=== PATIENT | female | born 1940 | race Two or more races ===

== ENCOUNTER 2020-05-22 19:55 | Inpatient (IN) | payer MEDICARE, MEDICAID ==
[~2020-05-22] VITALS: Ht 172.7 cm; Wt 57.9 kg
[2020-05-22 20:05] VITALS: BP 192/59
--- NOTE | 2020-05-22 20:05 | NUR ---
ED Nurse Note: Patient was brought in by randolph from home d/t AMS for two days, per triage she also had headache and ear pain. Patient aao x 2 but is drifting in and out of being alert, patient is able to provide name and medical history. Patient states she has been unable to urinate for 2 days. ERPA at bedside. No c/o pain. Patient changed into gown and placed on personnel monitor. Patient noted to be shaky and generalized weakness. IV on Left FA 20g established, blood and urine collected and sent to lab. No acute distress noted during assessment.
--- NOTE | 2020-05-22 20:21 | NUR ---
ED Nurse Note: Patient taken to CT in stable condition
[2020-05-22 20:22] LABS: APPEARANCE,URINE CLEAR; BILIRUBIN, URINE NEGATIVE (NEGATIVE); COLOR,URINE PALE YELLOW; GLUCOSE, URINE (UA) NEGATIVE (NEGATIVE); KETONES,URINE NEGATIVE (NEGATIVE); LEUKOCYTE ESTERASE ,URINE 1+ (NEGATIVE); NITRITE,URINE NEGATIVE (NEGATIVE); PH,URINE 7 (4.5-8.0); PROTEIN,URINE NEGATIVE (NEGATIVE); UROBILINOGEN,URINE NORMAL MG/DL (0.0-1.0)
[2020-05-22 20:30] LABS: BASOPHILS % (AUTO) 0.6 % (0.0-2.0); EOSINOPHILS % (AUTO) 2.3 % (0.0-3.0); HEMATOCRIT 41.4 % (37.0-47.0); HEMOGLOBIN 13.7 G/DL (12.0-16.0); LYMPHOCYTES % (AUTO) 20.4 % (20.0-45.0); MEAN CORPUSCULAR VOLUME 87 FL (80-99); NEUTROPHILS % (AUTO) 69.7 % (45.0-75.0); PLATELET COUNT 279 K/UL (150-450); RED BLOOD COUNT 4.75 M/UL (4.20-5.40); RED CELL DISTRIBUTION WIDTH 13.7 % (11.6-14.8); WHITE BLOOD COUNT 9.2 K/UL (4.8-10.8)
[2020-05-22 20:35] LABS: ANION GAP 11 mmol/L (5-15); BLOOD UREA NITROGEN 9 mg/dL (7-18); CALCIUM 8.9 MG/DL (8.5-10.1); CARBON DIOXIDE 23 MMOL/L (21-32); CHLORIDE 99 MMOL/L (98-107); CREATININE 0.8 MG/DL (0.55-1.30); POTASSIUM 3.7 MMOL/L (3.5-5.1); SODIUM 133 MMOL/L (136-145)
--- NOTE | 2020-05-22 20:35 | Diagnostic Imaging Report ---
EXAM: CT Head Without Intravenous Contrast CLINICAL HISTORY: AMS TECHNIQUE: Axial computed tomography images of the head/brain without intravenous contrast. CTDI is 53.4 mGy and DLP is 938.7 mGy-cm. One or more of the following dose reduction techniques were used: automated exposure control, adjustment of the mA and/or kV according to patient size, use of iterative reconstruction technique. COMPARISON: No previous studies. FINDINGS: Brain: Minimal small vessel disease of aging. No abnormal extra-axial collection. No hemorrhage. Ventricles: There is prominence of the ventricular system, cortical sulci, basilar cisterns, compatible with age related atrophy. Bones/joints: The calvarium is unremarkable. No acute fracture. Soft tissues: Unremarkable. Vasculature: There is atherosclerotic disease. Sinuses: Visualized sinuses are unremarkable. Mastoid air cells: Mastoid air cells are well pneumatized. Other findings: Only axial and coronal images are provided. IMPRESSION: 1. 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 2. No acute intracranial pathology. 3. If there is concern for etiology such as early acute lacunar infarcts, magnetic resonance imaging of the brain with diffusion-weighted sequences should be performed.
[2020-05-22 20:39] LABS: ALANINE AMINOTRANSFERASE 28 U/L (12-78); ALBUMIN 3.7 G/DL (3.4-5.0); ALBUMIN/GLOBULIN RATIO 1.1 (1.0-2.7); ALKALINE PHOSPHATASE 59 U/L (46-116); ASPARTATE AMINO TRANSFERASE 24 U/L (15-37); BILIRUBIN,TOTAL 0.4 MG/DL (0.2-1.0); CREATINE KINASE 80 U/L (26-308)
[2020-05-22 20:50] VITALS: BP 149/46
[2020-05-22] MEDS ORDERED: LOSARTAN POTASS50 MG ORAL (20:50)
[2020-05-22] MEDS ORDERED: REMERON15 MG ORAL (20:50)
[2020-05-22] MEDS ORDERED: ALPRAZOLAM0.25 M2 ORAL (20:50)
[2020-05-22] MEDS ORDERED: cefTRIAXone 1 GM in NS 55 ML IVPB ONE (21:00)
--- NOTE | 2020-05-22 21:54 | NUR ---
ED Nurse Note: Patient has both upper and lower dentures on, entered on belongings list.
--- NOTE | 2020-05-22 21:54 | NUR ---
ED Nurse Note: Belongings list completed.
[2020-05-22] MEDS ORDERED: Cortisporin OTIC Susp 10ml RIGHT EAR ONE (22:00)
--- NOTE | 2020-05-22 22:25 | Emergency Room Report ---
History of Present Illness General Chief Complaint: Altered Level of Consciousness Source: Family Member Present Illness HPI 80-year-old female here with generalized confusion. Patient's niece at the bedside says that the patient came to her house earlier this morning and "was saying things I did not make any sense." Patient was also incontinent of urine at that time. Patient was complaining of some dysuria. Here in the emergency department the patient is only complaining of some mild dysuria as well as right-sided ear pain. Denies fevers, chills, chest pain, palpitation, shortness of breath, back pain, abdominal pain, nausea, vomiting, diarrhea, hematuria. 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 Patient History Last Menstrual Period: unk Now: No Nursing Documentation-[facility] Past Medical History: No History, Except For Hx Hypertension: Yes Review of Systems All Other Systems: negative except mentioned in HPI Physical Exam Vital Signs Date Time Temp Pulse Resp B/P (MAP) Pulse Ox O2 Delivery O2 Flow Rate FiO2 05/22/20 19:55 96.8 69 23 175/60 (98) 100 Room Air Sp02 EP Interpretation: reviewed, normal General Appearance: no apparent distress, alert, non-toxic Head: normocephalic, atraumatic Eyes: bilateral eye normal inspection, bilateral eye PERRL ENT: hearing grossly normal, normal pharynx, no angioedema, normal voice, other - Mildly erythematous right external ear canal with some granulomatous change Neck: full range of motion, supple/symm/no masses Respiratory: chest non-tender, lungs clear, normal breath sounds, speaking full sentences Cardiovascular #1: regular rate, rhythm, no edema Cardiovascular #2: 2+ carotid (R), 2+ carotid (L), 2+ radial (R), 2+ radial (L), 2+ dorsalis pedis (R), 2+ dorsalis pedis (L) Gastrointestinal: normal bowel sounds, non tender, soft, non-distended, no guarding, no rebound Rectal: deferred Genitourinary: normal inspection, no CVA tenderness Musculoskeletal: back normal, normal range of motion, calf tenderness, gait/station normal, non-tender Neurologic: alert, motor strength/tone normal, oriented x3, sensory intact, responsive, speech normal Psychiatric: judgement/insight normal, memory normal, mood/affect normal, no suicidal/homicidal ideation Reflexes: 3+ bicep (R), 3+ bicep (L), 3+ tricep (R), 3+ tricep (L), 3+ knee (R), 3+ knee (L) Lymphatic: no adenopathy Medical Decision Making Diagnostic Impression: Primary Impression: Altered level of consciousness Additional Impressions: UTI (urinary tract infection) Otitis externa ER Course Laboratory Tests Test 05/22/20 20:05 05/22/20 20:20 White Blood Count 9.2 K/UL (4.8-10.8) Red Blood Count 4.75 M/UL (4.20-5.40) Hemoglobin 13.7 G/DL (12.0-16.0) Hematocrit 41.4 % (37.0-47.0) Mean Corpuscular Volume 87 FL (80-99) Mean Corpuscular Hemoglobin 28.8 PG (27.0-31.0) Mean Corpuscular Hemoglobin Concent 33.1 G/DL (32.0-36.0) Red Cell Distribution Width 13.7 % (11.6-14.8) Platelet Count 279 K/UL (150-450) Mean Platelet Volume 7.2 FL (6.5-10.1) Neutrophils (%) (Auto) 69.7 % (45.0-75.0) Lymphocytes (%) (Auto) 20.4 % (20.0-45.0) Monocytes (%) (Auto) 7.0 % (1.0-10.0) Eosinophils (%) (Auto) 2.3 % (0.0-3.0) Basophils (%) (Auto) 0.6 % (0.0-2.0) Urine Color Pale yellow Urine Appearance Clear Urine pH 7 (4.5-8.0) Urine Specific [place] 1.005 (1.005-1.035) Urine Protein Negative (NEGATIVE) Urine Glucose (UA) Negative (NEGATIVE) Urine Ketones Negative (NEGATIVE) Urine Blood 1+ (NEGATIVE) H Urine Nitrite Negative (NEGATIVE) Urine Bilirubin Negative (NEGATIVE) Urine Urobilinogen Normal MG/DL (0.0-1.0) Urine Leukocyte Esterase 1+ (NEGATIVE) H Urine RBC 0-2 /HPF (0 - 2) Urine WBC 2-4 /HPF (0 - 2) Urine Squamous Epithelial Cells Few /LPF (NONE/OCC) Urine Bacteria Few /HPF (NONE) Sodium Level 133 MMOL/L (136-145) L Potassium Level 3.7 MMOL/L (3.5-5.1) Chloride Level 99 MMOL/L (98-107) Carbon Dioxide Level 23 MMOL/L (21-32) Anion Gap 11 mmol/L (5-15) Blood Urea Nitrogen 9 mg/dL (7-18) Creatinine 0.8 MG/DL (0.55-1.30) Estimated Glomerular Filtration Rate > 60 mL/min (>60) Glucose Level 108 MG/DL (74-106) H Calcium Level 8.9 MG/DL (8.5-10.1) Total Bilirubin 0.4 MG/DL (0.2-1.0) Aspartate Amino Transferase (AST) 24 U/L (15-37) Alanine Aminotransferase (ALT) 28 U/L (12-78) Alkaline Phosphatase 59 U/L (46-116) Total Creatine Kinase 80 U/L (26-308) Troponin I 0.002 ng/mL (0.000-0.056) Total Protein 7.1 G/DL (6.4-8.2) Albumin 3.7 G/DL (3.4-5.0) Globulin 3.4 g/dL Albumin/Globulin Ratio 1.1 (1.0-2.7) Salicylates Level 1.6 ug/mL (2.8-20) L Urine Opiates Screen Negative (NEGATIVE) Acetaminophen Level < 2 MCG/ML (10-30) L Urine Barbiturates Screen Negative (NEGATIVE) Phencyclidine (PCP) Screen Negative (NEGATIVE) Urine Amphetamines Screen Negative (NEGATIVE) Urine Benzodiazepines Screen Negative (NEGATIVE) Urine Cocaine Screen Negative (NEGATIVE) Urine Marijuana (THC) Screen Negative (NEGATIVE) Serum Alcohol < 3 mg/dL Lactic Acid Level 1.30 mmol/L (0.4-2.0) EKG: NSR, no ischemia, intervals WNL. No ectopy Rhythm strip: patient monitored for arrhythmias - no malignant dysrhythmias, runs of PVCs, nor pauses noted Chest x-ray: No infiltrate/effusion. Mediastinum within normal limits 80-year-old female here with confusion and dysuria. The patient was hemodynamically stable in the emergency department and did not show any clear evidence of altered mental status. She was awake and alert but her niece at the bedside said the patient arrived unexpectedly at the nieces home tonight and was saying things that did not be any since. CT head was unremarkable. CBC and CMP unremarkable. Urinalysis showed bacteria and leukocyte esterase. Patient was given ceftriaxone in the emergency department. Examination of the patient's right external ear canal showed evidence of otitis externa. She was given Cortisporin eardrops. Admitted to telemetry in stable condition. Last Vital Signs Date Time Temp Pulse Resp B/P (MAP) Pulse Ox O2 Delivery O2 Flow Rate FiO2 05/22/20 20:50 64 20 149/46 100 Room Air 05/22/20 20:05 97.5 Referrals: [facility] (PCP) Rudy Martin M.D. May 22, 2020 22:25
--- NOTE | 2020-05-22 23:57 | NUR ---
ED Nurse Note: Report given to JENNIFER Oreilly.
--- NOTE | 2020-05-23 00:10 | NUR ---
TRANSFER TO FLOOR: Patient transferred to telemetry as ordered, per ERMD. Report given to JENNIFER Oreilly. Patient transported via gurney on ACLS protocol with panel monitor in stable condition accompanied by RN and certified emergency vehicle technician.
--- NOTE | 2020-05-23 00:10 | NUR ---
NURSE NOTES: Patient received from Shruthi RODRIGUEZ. Patient in stable condition brought in by [facility]. Moroccan speaking. Patient was able to transfer from [facility] to bed. [address] Reporter and gown placed. Called Dr. Basilio for Admission orders, Verified and carried out. Saturating well on RA. IV Site on Left AC 20G patent and intact. Call light wihtihn reach. Bed in lowest position and locked. WIll continue to monitor.
[2020-05-23] MEDS ORDERED: D5 1/2NS 1,000 ML IV SCH (01:45)
[2020-05-23 04:00] VITALS: BP 129/53
--- NOTE | 2020-05-23 07:30 | NUR ---
NURSE HAND-OFF REPORT: Important Events on Shift:[Admission] Patient Status: [Stable ] Diet: [Cardiac] Pending Orders: [] Pending Results/Labs:[] Pending MD notification:[] Latest Vital Signs: Temperature 97.7 , Pulse 66 , B/P 129 /53 , Respiratory Rate 18 , O2 SAT 98 , Room Air, O2 Flow Rate . Vital Sign Comment: [] EKG Rhythm: Sinus Rhythm Rhythm change?: N MD Notified?: - MD Response: Latest Mahoney Fall Score: 45 Fall Risk: High Risk Safety Measures: Call light Within Reach, Bed Alarm Zone 1, Side Rails Side Rails x3, Bed position Low and Locked. Fall Precautions: Yellow Socks Yellow Gown Door Sign Patient Fall Education Report given to [Gato RN].
[2020-05-23 07:36] LABS: ANION GAP 8 mmol/L (5-15); BLOOD UREA NITROGEN 7 mg/dL (7-18); CALCIUM 8.4 MG/DL (8.5-10.1); CARBON DIOXIDE 26 MMOL/L (21-32); CHLORIDE 105 MMOL/L (98-107); CREATININE 0.7 MG/DL (0.55-1.30); PHOSPHORUS 3.2 MG/DL (2.5-4.9); POTASSIUM 4.2 MMOL/L (3.5-5.1); SODIUM 139 MMOL/L (136-145)
[2020-05-23 07:38] LABS: BASOPHILS % (AUTO) 0.9 % (0.0-2.0); EOSINOPHILS % (AUTO) 2.3 % (0.0-3.0); HEMATOCRIT 37.2 % (37.0-47.0); HEMOGLOBIN 12.9 G/DL (12.0-16.0); LYMPHOCYTES % (AUTO) 22.7 % (20.0-45.0); MEAN CORPUSCULAR VOLUME 83 FL (80-99); MONOCYTES % (AUTO) 7.6 % (1.0-10.0); NEUTROPHILS % (AUTO) 66.6 % (45.0-75.0); PLATELET COUNT 254 K/UL (150-450); RED BLOOD COUNT 4.47 M/UL (4.20-5.40); RED CELL DISTRIBUTION WIDTH 13.3 % (11.6-14.8); WHITE BLOOD COUNT 6.4 K/UL (4.8-10.8)
[2020-05-23 08:00] VITALS: BP 153/50
--- NOTE | 2020-05-23 08:00 | NUR ---
NURSE NOTES: Pt awake/alert in bed, breathing easily on room air, denies SOB and denies pain at this time. Vital signs stable with SR @ 84 on monitor. IV access LAC, flushed with 10 ml NS and locked. Teixeira cath in place, patent, draining clear yellow urine into collection bag. Bed left in low position, side rails up x 2 and call light left near pt's hand.
[2020-05-23] MEDS: D5 1/2NS w/KCl 20mEq 1,000 ML IV SCH ×2 (09:17→22:27)
[2020-05-23] MEDS: Losartan 50mg tab ORAL SCH (09:27)
[2020-05-23] MEDS: Heparin 5000 units/ml inj SUBQ SCH ×2 (09:28→21:02)
--- NOTE | 2020-05-23 11:08 | Consultation ---
History of Present Illness General Date patient seen: May 23, 2020 Chief Complaint: Altered Level of Consciousness Present Illness HPI 80-year-old female with hx of HTN presented to ER with CC of generalized confusion, some dysuria. right-sided ear pain. Denies fevers, chills, chest pain, palpitation, shortness of breath, back pain, abdominal pain, nausea, vomiting, diarrhea, hematuria. Pt is admitted for further management. Allergies: Coded Allergies: No Known Allergies (Unverified , 05/22/20) Medication History Scheduled Alprazolam (Alprazolam), 0.25 MG ORAL TID, (Reported) Losartan Potassium* (Losartan Potassium*), 50 MG ORAL DAILY, (Reported) Mirtazapine* (Remeron*), 15 MG ORAL BEDTIME, (Reported) Patient History Healthcare decision maker Resuscitation status Advanced Directive on File Past Medical/Surgical History Past Medical/Surgical History: (1) History of hypertension Review of Systems All Other Systems: negative except mentioned in HPI Physical Exam General Appearance: thin Lines, tubes and drains: peripheral HEENT: normocephalic, atraumatic Neck: non-tender, supple Respiratory/Chest: chest wall non-tender, lungs clear Cardiovascular/Chest: normal peripheral pulses, normal rate Abdomen: normal bowel sounds Genitourinary/Rectal: normal genital exam Extremities: normal range of motion Skin Exam: normal pigmentation Last 24 Hour Vital Signs Date Time Temp Pulse Resp B/P (MAP) Pulse Ox O2 Delivery O2 Flow Rate FiO2 05/23/20 09:27 153/50 05/23/20 08:27 Room Air 05/23/20 08:00 63 05/23/20 08:00 97.9 70 18 153/50 (84) 100 05/23/20 04:00 66 05/23/20 04:00 97.7 66 18 129/53 (78) 98 05/23/20 03:12 Room Air 05/23/20 00:10 97.6 78 18 114/44 100 Room Air 05/22/20 20:50 64 20 149/46 100 Room Air 05/22/20 20:05 76 26 Room Air 05/22/20 20:05 97.5 76 26 192/59 100 Room Air 05/22/20 19:55 96.8 69 23 175/60 (98) 100 Room Air Intake and Output 05/22/20 05/23/20 19:00 07:00 Intake Total 1055 ml Output Total 2200 ml Balance -1145 ml Intake Oral 0 ml IV Total 1055 ml Output Urine Total 2200 ml Laboratory Tests Test 05/22/20 20:05 05/22/20 20:20 05/23/20 05:48 White Blood Count 9.2 K/UL (4.8-10.8) 6.4 K/UL (4.8-10.8) Red Blood Count 4.75 M/UL (4.20-5.40) 4.47 M/UL (4.20-5.40) Hemoglobin 13.7 G/DL (12.0-16.0) 12.9 G/DL (12.0-16.0) Hematocrit 41.4 % (37.0-47.0) 37.2 % (37.0-47.0) Mean Corpuscular Volume 87 FL (80-99) 83 FL (80-99) Mean Corpuscular Hemoglobin 28.8 PG (27.0-31.0) 28.8 PG (27.0-31.0) Mean Corpuscular Hemoglobin Concent 33.1 G/DL (32.0-36.0) 34.6 G/DL (32.0-36.0) Red Cell Distribution Width 13.7 % (11.6-14.8) 13.3 % (11.6-14.8) Platelet Count 279 K/UL (150-450) 254 K/UL (150-450) Mean Platelet Volume 7.2 FL (6.5-10.1) 6.5 FL (6.5-10.1) Neutrophils (%) (Auto) 69.7 % (45.0-75.0) 66.6 % (45.0-75.0) Lymphocytes (%) (Auto) 20.4 % (20.0-45.0) 22.7 % (20.0-45.0) Monocytes (%) (Auto) 7.0 % (1.0-10.0) 7.6 % (1.0-10.0) Eosinophils (%) (Auto) 2.3 % (0.0-3.0) 2.3 % (0.0-3.0) Basophils (%) (Auto) 0.6 % (0.0-2.0) 0.9 % (0.0-2.0) Urine Color Pale yellow Urine Appearance Clear Urine pH 7 (4.5-8.0) Urine Specific [place] 1.005 (1.005-1.035) Urine Protein Negative (NEGATIVE) Urine Glucose (UA) Negative (NEGATIVE) Urine Ketones Negative (NEGATIVE) Urine Blood 1+ (NEGATIVE) H Urine Nitrite Negative (NEGATIVE) Urine Bilirubin Negative (NEGATIVE) Urine Urobilinogen Normal MG/DL (0.0-1.0) Urine Leukocyte Esterase 1+ (NEGATIVE) H Urine RBC 0-2 /HPF (0 - 2) Urine WBC 2-4 /HPF (0 - 2) Urine Squamous Epithelial Cells Few /LPF (NONE/OCC) Urine Bacteria Few /HPF (NONE) Sodium Level 133 MMOL/L (136-145) L 139 MMOL/L (136-145) Potassium Level 3.7 MMOL/L (3.5-5.1) 4.2 MMOL/L (3.5-5.1) Chloride Level 99 MMOL/L (98-107) 105 MMOL/L (98-107) Carbon Dioxide Level 23 MMOL/L (21-32) 26 MMOL/L (21-32) Anion Gap 11 mmol/L (5-15) 8 mmol/L (5-15) Blood Urea Nitrogen 9 mg/dL (7-18) 7 mg/dL (7-18) Creatinine 0.8 MG/DL (0.55-1.30) 0.7 MG/DL (0.55-1.30) Estimat Glomerular Filtration Rate > 60 mL/min (>60) > 60 mL/min (>60) Glucose Level 108 MG/DL (74-106) H 90 MG/DL (74-106) Calcium Level 8.9 MG/DL (8.5-10.1) 8.4 MG/DL (8.5-10.1) L Total Bilirubin 0.4 MG/DL (0.2-1.0) Aspartate Amino Transf (AST/SGOT) 24 U/L (15-37) Alanine Aminotransferase (ALT/SGPT) 28 U/L (12-78) Alkaline Phosphatase 59 U/L (46-116) Total Creatine Kinase 80 U/L (26-308) Troponin I 0.002 ng/mL (0.000-0.056) 0.012 ng/mL (0.000-0.056) Total Protein 7.1 G/DL (6.4-8.2) Albumin 3.7 G/DL (3.4-5.0) Globulin 3.4 g/dL Albumin/Globulin Ratio 1.1 (1.0-2.7) Salicylates Level 1.6 ug/mL (2.8-20) L Urine Opiates Screen Negative (NEGATIVE) Acetaminophen Level < 2 MCG/ML (10-30) L Urine Barbiturates Screen Negative (NEGATIVE) Phencyclidine (PCP) Screen Negative (NEGATIVE) Urine Amphetamines Screen Negative (NEGATIVE) Urine Benzodiazepines Screen Negative (NEGATIVE) Urine Cocaine Screen Negative (NEGATIVE) Urine Marijuana (THC) Screen Negative (NEGATIVE) Serum Alcohol < 3 mg/dL Lactic Acid Level 1.30 mmol/L (0.4-2.0) Phosphorus Level 3.2 MG/DL (2.5-4.9) Magnesium Level 1.9 MG/DL (1.8-2.4) Height (Feet): 5 Height (Inches): 8.00 Weight (Pounds): 126 Medications Current Medications Medications (Trade) Dose Ordered Sig/James Route PRN Reason Start Time Stop Time Status Last Admin Dose Admin Acetaminophen (Tylenol) 650 mg Q6H PRN ORAL For Pain and Fever 05/23/20 01:45 06/22/20 01:44 Alprazolam (Xanax) 0.25 mg Q6H PRN ORAL For Anxiety 05/23/20 01:45 05/30/20 01:44 Ceftriaxone Sodium 1 gm/ Dextrose 55 ml @ 110 mls/hr Q24H IVPB 05/23/20 21:00 05/30/20 20:59 Clonidine HCl (Catapres Tab) 0.1 mg Q4H PRN ORAL SBP >160 05/23/20 07:45 08/21/20 07:44 Dextrose/ Electrolytes 1,000 ml @ 75 mls/hr [id number] IV 05/23/20 09:00 06/22/20 08:59 05/23/20 09:17 Heparin Sodium (Porcine) (Heparin 5000 units/ml) 5,000 units EVERY 12 HOURS SUBQ 05/23/20 09:00 07/07/20 08:59 05/23/20 09:28 Losartan Potassium (Cozaar) 50 mg DAILY ORAL 05/23/20 09:00 06/22/20 08:59 05/23/20 09:27 Mirtazapine (Remeron) 15 mg BEDTIME ORAL 05/23/20 21:00 08/21/20 20:59 Ondansetron HCl (Zofran) 4 mg Q4H PRN IVP Nausea & Vomiting 05/23/20 01:45 06/22/20 01:44 Assessment/Plan Problem List: (1) UTI (urinary tract infection) ICD Codes: N39.0 - Urinary tract infection, site not specified SNOMED: 45376383 (2) Otitis ICD Codes: H66.90 - Otitis media, unspecified, unspecified ear SNOMED: 25535315 (3) History of hypertension ICD Codes: Z86.79 - Personal history of other diseases of the circulatory system SNOMED: 896964012 Assessment/Plan: urine culture iv abx ID evaluation monitor BP continue home antihypertensive agents. dvt prophylaxis. Pamela Irving MD May 23, 2020 11:08
[2020-05-23 12:00] VITALS: BP 140/50
--- NOTE | 2020-05-23 13:18 | Consultation ---
History of Present Illness General Date patient seen: May 23, 2020 Chief Complaint: Altered Level of Consciousness Reason for Consultation: Ear infection Present Illness HPI Ms. Lara is an 80 yo femalew with PMHx of HTN who was sent toe ED by her niece for confusion. The patient today is awake and alert to name, location and situation. She says that she had ear pain for the last few days but this is now resolved. She says that she has no dysuria or hematura. I the ED she was aferbile with no leukcoytosis and a negative UA. ID was consulted for ear infection. PMHx/PSHx HTN SocHx EtOH abuse FAMHx Not contributory Allergies: Coded Allergies: No Known Allergies (Unverified , 05/22/20) Medication History Scheduled Alprazolam (Alprazolam), 0.25 MG ORAL TID, (Reported) Losartan Potassium* (Losartan Potassium*), 50 MG ORAL DAILY, (Reported) Mirtazapine* (Remeron*), 15 MG ORAL BEDTIME, (Reported) Patient History Healthcare decision maker Resuscitation status Advanced Directive on File Review of Systems ROS Narrative 12 point ROS negative Except as noted in the HPI Physical Exam Last 24 Hour Vital Signs Date Time Temp Pulse Resp B/P (MAP) Pulse Ox O2 Delivery O2 Flow Rate FiO2 05/23/20 12:00 64 05/23/20 09:27 153/50 05/23/20 08:27 Room Air 05/23/20 08:00 63 05/23/20 08:00 97.9 70 18 153/50 (84) 100 05/23/20 04:00 66 05/23/20 04:00 97.7 66 18 129/53 (78) 98 05/23/20 03:12 Room Air 05/23/20 00:10 97.6 78 18 114/44 100 Room Air 05/22/20 20:50 64 20 149/46 100 Room Air 05/22/20 20:05 76 26 Room Air 05/22/20 20:05 97.5 76 26 192/59 100 Room Air 05/22/20 19:55 96.8 69 23 175/60 (98) 100 Room Air Intake and Output0 05/22/20 05/23/20 19:00 07:00 Intake Total 1055 ml Output Total 2200 ml Balance -1145 ml Intake Oral 0 ml IV Total 1055 ml Output Urine Total 2200 ml Laboratory Tests Test 05/22/20 20:05 05/22/20 20:20 05/23/20 05:48 White Blood Count 9.2 K/UL (4.8-10.8) 6.4 K/UL (4.8-10.8) Red Blood Count 4.75 M/UL (4.20-5.40) 4.47 M/UL (4.20-5.40) Hemoglobin 13.7 G/DL (12.0-16.0) 12.9 G/DL (12.0-16.0) Hematocrit 41.4 % (37.0-47.0) 37.2 % (37.0-47.0) Mean Corpuscular Volume 87 FL (80-99) 83 FL (80-99) Mean Corpuscular Hemoglobin 28.8 PG (27.0-31.0) 28.8 PG (27.0-31.0) Mean Corpuscular Hemoglobin Concent 33.1 G/DL (32.0-36.0) 34.6 G/DL (32.0-36.0) Red Cell Distribution Width 13.7 % (11.6-14.8) 13.3 % (11.6-14.8) Platelet Count 279 K/UL (150-450) 254 K/UL (150-450) Mean Platelet Volume 7.2 FL (6.5-10.1) 6.5 FL (6.5-10.1) Neutrophils (%) (Auto) 69.7 % (45.0-75.0) 66.6 % (45.0-75.0) Lymphocytes (%) (Auto) 20.4 % (20.0-45.0) 22.7 % (20.0-45.0) Monocytes (%) (Auto) 7.0 % (1.0-10.0) 7.6 % (1.0-10.0) Eosinophils (%) (Auto) 2.3 % (0.0-3.0) 2.3 % (0.0-3.0) Basophils (%) (Auto) 0.6 % (0.0-2.0) 0.9 % (0.0-2.0) Urine Color Pale yellow Urine Appearance Clear Urine pH 7 (4.5-8.0) Urine Specific [place] 1.005 (1.005-1.035) Urine Protein Negative (NEGATIVE) Urine Glucose (UA) Negative (NEGATIVE) Urine Ketones Negative (NEGATIVE) Urine Blood 1+ (NEGATIVE) H Urine Nitrite Negative (NEGATIVE) Urine Bilirubin Negative (NEGATIVE) Urine Urobilinogen Normal MG/DL (0.0-1.0) Urine Leukocyte Esterase 1+ (NEGATIVE) H Urine RBC 0-2 /HPF (0 - 2) Urine WBC 2-4 /HPF (0 - 2) Urine Squamous Epithelial Cells Few /LPF (NONE/OCC) Urine Bacteria Few /HPF (NONE) Sodium Level 133 MMOL/L (136-145) L 139 MMOL/L (136-145) Potassium Level 3.7 MMOL/L (3.5-5.1) 4.2 MMOL/L (3.5-5.1) Chloride Level 99 MMOL/L (98-107) 105 MMOL/L (98-107) Carbon Dioxide Level 23 MMOL/L (21-32) 26 MMOL/L (21-32) Anion Gap 11 mmol/L (5-15) 8 mmol/L (5-15) Blood Urea Nitrogen 9 mg/dL (7-18) 7 mg/dL (7-18) Creatinine 0.8 MG/DL (0.55-1.30) 0.7 MG/DL (0.55-1.30) Estimat Glomerular Filtration Rate > 60 mL/min (>60) > 60 mL/min (>60) Glucose Level 108 MG/DL (74-106) H 90 MG/DL (74-106) Calcium Level 8.9 MG/DL (8.5-10.1) 8.4 MG/DL (8.5-10.1) L Total Bilirubin 0.4 MG/DL (0.2-1.0) Aspartate Amino Transf (AST/SGOT) 24 U/L (15-37) Alanine Aminotransferase (ALT/SGPT) 28 U/L (12-78) Alkaline Phosphatase 59 U/L (46-116) Total Creatine Kinase 80 U/L (26-308) Troponin I 0.002 ng/mL (0.000-0.056) 0.012 ng/mL (0.000-0.056) Total Protein 7.1 G/DL (6.4-8.2) Albumin 3.7 G/DL (3.4-5.0) Globulin 3.4 g/dL Albumin/Globulin Ratio 1.1 (1.0-2.7) Salicylates Level 1.6 ug/mL (2.8-20) L Urine Opiates Screen Negative (NEGATIVE) Acetaminophen Level < 2 MCG/ML (10-30) L Urine Barbiturates Screen Negative (NEGATIVE) Phencyclidine (PCP) Screen Negative (NEGATIVE) Urine Amphetamines Screen Negative (NEGATIVE) Urine Benzodiazepines Screen Negative (NEGATIVE) Urine Cocaine Screen Negative (NEGATIVE) Urine Marijuana (THC) Screen Negative (NEGATIVE) Serum Alcohol < 3 mg/dL Lactic Acid Level 1.30 mmol/L (0.4-2.0) Phosphorus Level 3.2 MG/DL (2.5-4.9) Magnesium Level 1.9 MG/DL (1.8-2.4) Height (Feet): 5 Height (Inches): 8.00 Weight (Pounds): 126 Medications Current Medications Medications (Trade) Dose Ordered Sig/James Route PRN Reason Start Time Stop Time Status Last Admin Dose Admin Acetaminophen (Tylenol) 650 mg Q6H PRN ORAL For Pain and Fever 05/23/20 01:45 06/22/20 01:44 Alprazolam (Xanax) 0.25 mg Q6H PRN ORAL For Anxiety 05/23/20 01:45 05/30/20 01:44 Ceftriaxone Sodium 1 gm/ Dextrose 55 ml @ 110 mls/hr Q24H IVPB 05/23/20 21:00 05/30/20 20:59 Clonidine HCl (Catapres Tab) 0.1 mg Q4H PRN ORAL SBP >160 05/23/20 07:45 08/21/20 07:44 Dextrose/ Electrolytes 1,000 ml @ 75 mls/hr [id number] IV 05/23/20 09:00 06/22/20 08:59 05/23/20 09:17 Heparin Sodium (Porcine) (Heparin 5000 units/ml) 5,000 units EVERY 12 HOURS SUBQ 05/23/20 09:00 07/07/20 08:59 05/23/20 09:28 Losartan Potassium (Cozaar) 50 mg DAILY ORAL 05/23/20 09:00 06/22/20 08:59 05/23/20 09:27 Mirtazapine (Remeron) 15 mg BEDTIME ORAL 05/23/20 21:00 08/21/20 20:59 Ondansetron HCl (Zofran) 4 mg Q4H PRN IVP Nausea & Vomiting 05/23/20 01:45 06/22/20 01:44 Objective Narrative GEN: NAD on RA HEENT: NCAT, MMM, EOMI, No scleral icterus, ears with no erythema or pain with manipulation. Neck: Supple no LAD HEART: RRR, S1, S2 PULM: CTAB, No W ABD: Soft, NT, ND, +BS EXT: No C/C/E, 2+ Pulses B/L NEURO: A/O x 3 No focal deficits Assessment/Plan Assessment/Plan: 80 yo femalew with PMHx of HTN who was sent toe ED by her niece for confusion. Right Ear infection Dysuria r/o UTI UA (-) Cx Pending AMS - Resolved HTN Plan - Continue Ceftriaxone #2 pending urine Cx - f/u urine Cultures - Monitor CBC and Temps Thank you for this consult. [facility] will continue to follow Ms. Galaviz with you during her hospitalization. Blake Davis MD May 23, 2020 13:18
--- NOTE | 2020-05-23 13:34 | NUR ---
CASE MANAGEMENT:REVIEW FROM HOME TO ER CC: ALOC AND UNABLE TO URINATE SI: AMS. UTI 96.8 69 23 192/59 100% ON RA NA-133 IS: IV ROCEPHIN 1L NS BOLUS CT HEAD CXR BLOOD CX : TO TELEMETRY PLAN: NEURO CHECKS Q4HRS
--- NOTE | 2020-05-23 13:56 | NUR ---
INSURANCE CLINICALS/ REVIEW FAXED TO [facility] P:[phone] F:[phone]
--- NOTE | 2020-05-23 15:17 | Cardiac Electrophysiology PN ---
Subjective Subjective [id number] Objective Last 24 Hour Vital Signs Date Time Temp Pulse Resp B/P (MAP) Pulse Ox O2 Delivery O2 Flow Rate FiO2 05/23/20 12:00 98.1 92 18 140/50 (80) 98 05/23/20 12:00 64 05/23/20 09:27 153/50 05/23/20 08:27 Room Air 05/23/20 08:00 63 05/23/20 08:00 97.9 70 18 153/50 (84) 100 05/23/20 04:00 66 05/23/20 04:00 97.7 66 18 129/53 (78) 98 05/23/20 03:12 Room Air 05/23/20 00:10 97.6 78 18 114/44 100 Room Air 05/22/20 20:50 64 20 149/46 100 Room Air 05/22/20 20:05 76 26 Room Air 05/22/20 20:05 97.5 76 26 192/59 100 Room Air 05/22/20 19:55 96.8 69 23 175/60 (98) 100 Room Air Intake and Output 05/22/20 05/23/20 19:00 07:00 Intake Total 1055 ml Output Total 2200 ml Balance -1145 ml Intake Oral 0 ml IV Total 1055 ml Output Urine Total 2200 ml Laboratory Tests Test 05/22/20 20:05 05/22/20 20:20 05/23/20 05:48 White Blood Count 9.2 K/UL (4.8-10.8) 6.4 K/UL (4.8-10.8) Red Blood Count 4.75 M/UL (4.20-5.40) 4.47 M/UL (4.20-5.40) Hemoglobin 13.7 G/DL (12.0-16.0) 12.9 G/DL (12.0-16.0) Hematocrit 41.4 % (37.0-47.0) 37.2 % (37.0-47.0) Mean Corpuscular Volume 87 FL (80-99) 83 FL (80-99) Mean Corpuscular Hemoglobin 28.8 PG (27.0-31.0) 28.8 PG (27.0-31.0) Mean Corpuscular Hemoglobin Concent 33.1 G/DL (32.0-36.0) 34.6 G/DL (32.0-36.0) Red Cell Distribution Width 13.7 % (11.6-14.8) 13.3 % (11.6-14.8) Platelet Count 279 K/UL (150-450) 254 K/UL (150-450) Mean Platelet Volume 7.2 FL (6.5-10.1) 6.5 FL (6.5-10.1) Neutrophils (%) (Auto) 69.7 % (45.0-75.0) 66.6 % (45.0-75.0) Lymphocytes (%) (Auto) 20.4 % (20.0-45.0) 22.7 % (20.0-45.0) Monocytes (%) (Auto) 7.0 % (1.0-10.0) 7.6 % (1.0-10.0) Eosinophils (%) (Auto) 2.3 % (0.0-3.0) 2.3 % (0.0-3.0) Basophils (%) (Auto) 0.6 % (0.0-2.0) 0.9 % (0.0-2.0) Urine Color Pale yellow Urine Appearance Clear Urine pH 7 (4.5-8.0) Urine Specific [place] 1.005 (1.005-1.035) Urine Protein Negative (NEGATIVE) Urine Glucose (UA) Negative (NEGATIVE) Urine Ketones Negative (NEGATIVE) Urine Blood 1+ (NEGATIVE) H Urine Nitrite Negative (NEGATIVE) Urine Bilirubin Negative (NEGATIVE) Urine Urobilinogen Normal MG/DL (0.0-1.0) Urine Leukocyte Esterase 1+ (NEGATIVE) H Urine RBC 0-2 /HPF (0 - 2) Urine WBC 2-4 /HPF (0 - 2) Urine Squamous Epithelial Cells Few /LPF (NONE/OCC) Urine Bacteria Few /HPF (NONE) Sodium Level 133 MMOL/L (136-145) L 139 MMOL/L (136-145) Potassium Level 3.7 MMOL/L (3.5-5.1) 4.2 MMOL/L (3.5-5.1) Chloride Level 99 MMOL/L (98-107) 105 MMOL/L (98-107) Carbon Dioxide Level 23 MMOL/L (21-32) 26 MMOL/L (21-32) Anion Gap 11 mmol/L (5-15) 8 mmol/L (5-15) Blood Urea Nitrogen 9 mg/dL (7-18) 7 mg/dL (7-18) Creatinine 0.8 MG/DL (0.55-1.30) 0.7 MG/DL (0.55-1.30) Estimat Glomerular Filtration Rate > 60 mL/min (>60) > 60 mL/min (>60) Glucose Level 108 MG/DL (74-106) H 90 MG/DL (74-106) Calcium Level 8.9 MG/DL (8.5-10.1) 8.4 MG/DL (8.5-10.1) L Total Bilirubin 0.4 MG/DL (0.2-1.0) Aspartate Amino Transf (AST/SGOT) 24 U/L (15-37) Alanine Aminotransferase (ALT/SGPT) 28 U/L (12-78) Alkaline Phosphatase 59 U/L (46-116) Total Creatine Kinase 80 U/L (26-308) Troponin I 0.002 ng/mL (0.000-0.056) 0.012 ng/mL (0.000-0.056) Total Protein 7.1 G/DL (6.4-8.2) Albumin 3.7 G/DL (3.4-5.0) Globulin 3.4 g/dL Albumin/Globulin Ratio 1.1 (1.0-2.7) Salicylates Level 1.6 ug/mL (2.8-20) L Urine Opiates Screen Negative (NEGATIVE) Acetaminophen Level < 2 MCG/ML (10-30) L Urine Barbiturates Screen Negative (NEGATIVE) Phencyclidine (PCP) Screen Negative (NEGATIVE) Urine Amphetamines Screen Negative (NEGATIVE) Urine Benzodiazepines Screen Negative (NEGATIVE) Urine Cocaine Screen Negative (NEGATIVE) Urine Marijuana (THC) Screen Negative (NEGATIVE) Serum Alcohol < 3 mg/dL Lactic Acid Level 1.30 mmol/L (0.4-2.0) Phosphorus Level 3.2 MG/DL (2.5-4.9) Magnesium Level 1.9 MG/DL (1.8-2.4) Gerardo Patel MD May 23, 2020 15:16
[2020-05-23 15:28] VITALS: BP 148/53
--- NOTE | 2020-05-23 16:20 | History & Physical ---
History and Physical History & Physicial Lorenzo Basilio MD May 23, 2020 16:20
--- NOTE | 2020-05-23 16:30 | Consultation ---
DATE OF CONSULTATION: 05/23/2020 CARDIOLOGY CONSULTATION CONSULTING PHYSICIAN: Gerardo Patel MD. REFERRING PHYSICIAN: Lorenzo Basilio MD. REASON FOR CONSULTATION: Management of hypertension. HISTORY OF PRESENT ILLNESS: Patient is an 80-year-old lady with history of hypertension, presented to the emergency room complaining of dysuria and fever. Patient was found also to be confused. Patient denies any chest pain or palpitation or shortness of breath. No nausea, vomiting, or diarrhea. Patient's EKG was completely normal and a Cardiology consultation was obtained for further evaluation and management of hypertension. REVIEW OF SYSTEMS: Negative other than what was mentioned in the history of present illness. PAST MEDICAL HISTORY: As mentioned above. FAMILY HISTORY: Noncontributory. SOCIAL HISTORY: Lives at home. Does not smoke or drink alcohol. MEDICATIONS: At home include losartan 50 mg daily, Remeron, and alprazolam. PHYSICAL EXAMINATION: VITAL SIGNS: Show blood pressure of 140/50, pulse is 92, respirations 18, and she is afebrile. HEAD AND NECK: Showed no JVD. LUNGS: Clear. CARDIOVASCULAR: Shows regular S1 and S2 with no gallop or murmur. ABDOMEN: Soft. EXTREMITIES: No pitting edema. LABORATORY AND DIAGNOSTIC DATA: Labs show white count of 6.4, hematocrit 12.9, hematocrit 37.2, and platelet count of 254. Sodium 139, potassium 4.2, BUN of . ASSESSMENT AND PLAN: 1. Altered mental status. EKG is normal. Patient already ruled out for myocardial infarction. Urine toxicology screen is negative. We will get an echocardiogram for further evaluation. 2. Hypertension. Continue losartan 50 mg daily. Patient is also on p.r.n. clonidine as well. 3. Urinary tract infection, on ceftriaxone per ID. Thank you very much for allowing me to participate in the care of this patient. Please do not hesitate to contact me for any questions regarding my evaluation. Gerardo Patel M.D. DR: RUBEN JOB#: [id number] CC:
--- NOTE | 2020-05-23 18:10 | NUR ---
NURSE NOTES: Pt transferred to rm 310-2 with chart. labels, IV solutions and belongings. Pt awake/alert breathing easily on room air. Pt hooked back up to IV fluid, D5 1/2NS + 20 K 75 ml/hr.Report to KRISTINA Beal. Belongings list signed.
[2020-05-23 18:25] VITALS: BP 130/55
--- NOTE | 2020-05-23 18:25 | Diagnostic Imaging Report ---
Indication: Chest pain Technique: One view of the chest Comparison: none Findings: Normal heart size. The aorta is tortuous and calcified. The lungs and pleural spaces are clear Impression: No acute process
--- NOTE | 2020-05-23 18:47 | NUR ---
NURSE NOTES: RECEIVED PATIENT A/AOX4, AMBULATES WITH MINIMAL ASSIST. PERSONAL BELONGINGS NOTED. SKIN IS INTACT. PIV PATENT AND INTACT. NO ACUTE RESP DISTRESS. NO C/O PAIN/DISCOMFORT NOTED. KEPT BED IN THE LOWEST POSITION. SIDERAILS ARE UPX3, CALL LIGHT IS WITHIN REACH. BRAKES AND LOCK @ ALL TIMES. WILL CONT TO MONITOR.
--- NOTE | 2020-05-23 19:00 | NUR ---
NURSE NOTES: received pt. in bed, awake, alert and oriented, with breathing even and unlabored. Denies any pain at this time. With bed in it's lowest position, with alarm on and locked. Will continue with plan of care.
--- NOTE | 2020-05-23 19:07 | NUR ---
NURSE HAND-OFF: Important Events on Shift:[PATIENT JUST TRANSFERRED FROM TELE. VSS, AMBULATES, PERSONAL BELONGINGS NOTED. IVF REGIMEN] Patient Status: [IMPROVING] Diet: [CARDIAC] Pending Orders: [LABS, 2D ECHO] Pending Results/Labs:[AM] Pending MD notification:[] Latest Vital Signs: Temperature 97.3 , Pulse 68 , B/P 130 /55 , Respiratory Rate 16 , O2 SAT 99 , Room Air, O2 Flow Rate . Vital Sign Comment: [] Latest Mahoney Fall Score: 45 Fall Risk: High Risk Safety Measures: Call light Within Reach, Bed Alarm Zone 1, Side Rails Side Rails x2, Bed position Low and Locked. Fall Precautions: Yellow Gown Door Sign Patient Fall Education Report given to [AL].
[2020-05-23 20:00] VITALS: BP 133/61
[2020-05-23] MEDS: cefTRIAXone 1 GM in D5W 55 ML IVPB SCH (21:01)
--- NOTE | 2020-05-23 22:00 | History and Physical Report ---
DATE OF ADMISSION: 05/22/2020 CHIEF COMPLAINT: Altered mental status. HISTORY OF PRESENT ILLNESS: This is an 80-year-old female with past medical history significant for hypertension, who presented to the emergency department complaining about dysuria and altered mental status. The patient was brought in accompanied with the niece, who mentioned that the patient has been confused since morning, was saying things that did not make sense. The patient is also incontinent of urine and complained about dysuria as well as complaining about right ear pain. She denies any fever, chills, chest pain, palpitation, shortness of breath, nausea, vomiting, diarrhea, or hematuria. Shortly after initial evaluation in the emergency department, the patient was admitted to the hospital with altered mental status, most likely secondary to toxic metabolic encephalopathy as a result of acute UTI as well as otitis externa. PAST MEDICAL HISTORY/PAST SURGICAL HISTORY: As above. History of hypertension. MEDICATION AT HOME: Refer to medication reconciliation. ALLERGIES: No known drug allergies. SOCIAL HISTORY: Denies any smoking, alcohol, or drugs. FAMILY HISTORY: Noncontributory. REVIEW OF SYSTEMS: Mostly as above. Positive dysuria. Denies any frequency, hematuria, or hematochezia. Denies any nausea or vomiting. Complained about right ear pain. Denies any bright red blood per rectum. Denies any discharge from the ear. PHYSICAL EXAMINATION: VITAL SIGNS: On admission, temperature 96.8, pulse of 69, respirations 23, and blood pressure 175/60. GENERAL: The patient is awake and responsive, in no acute distress. HEAD AND NECK: Pupils are reactive to light. Extraocular movements are intact. Right ear has mild erythematous external ear canal, some granulation changes. Neck was supple. No JVD. LUNGS: Good air entry. No wheezing or rales. HEART: S1, S2. Regular rhythm. No gallops. ABDOMEN: Soft, nondistended, and nontender. Positive bowel sounds. EXTREMITIES: No cyanosis, clubbing, or edema. NEUROLOGIC: Cranial nerves II through XII grossly intact. Motor is 5/5 in all extremities. Gait is intact. RECTAL AND GENITOURINARY: Refused and deferred. PSYCHIATRIC: Mood and affect is intact. LABORATORY DATA: On admission, WBC of 9.2, hemoglobin 13, hematocrit 41, and platelets is 279,000. Sodium 133, potassium 3.7, chloride 99, bicarbonate 22, BUN 9, creatinine 0.8, and glucose is 108. First and second troponin 0.002 and second troponin 0.0122. Albumin is 3.7. UA is +1 blood, +1 leukocytes, negative ketone, few bacteria. Urine drug screen is negative. Acetaminophen is negative. Salicylates is 1.6. Alcohol level is negative. The patient had a chest x-ray done, no acute process. CT of the head, age-related atrophy with small vessel disease of aging. No acute intracranial pathology. ASSESSMENT: 1. Altered mental status, most likely secondary to toxic metabolic encephalopathy as a result of dehydration and infection. 2. Hypertension. 3. Urinary tract infection. 4. Right ear otitis externa. PLAN: Admit the patient to monitor unit. We will start the patient on broad-spectrum antibiotic with Rocephin. Follow up with the laboratory as well as culture. Follow up with the ID consultation with Dr. Blake Davis, a Cardiology consultation with Dr. Patel, and Pulmonary consultation with Dr. Irving. Code status is Full Code. DVT prophylaxis with heparin subcutaneous. Lorenzo Basilio M.D. DR: NORMA JOB#: [id number] CC:
--- NOTE | 2020-05-23 22:56 | NUR ---
NURSE NOTES: All meds given. On continuous ivatb therapy, without a/r noted. Remained alert and oriented, able to make needs known. Son came to visit pt. Slept at intervals. With reid cath attached to draining bag and draining well to a james colored urine. Will continue to monitor.
[2020-05-24] VITALS: BP 127/58
[2020-05-24 04:00] VITALS: BP 125/63
--- NOTE | 2020-05-24 05:40 | NUR ---
NURSE NOTES: Pt. was able to slept good. Kept warm and comfortable. Teixeira cath draining well to james colored urine, free of sediments. Noted to have improved cognition, no periods of confusion noted. Denies any pain. Will continue with plan of care.
--- NOTE | 2020-05-24 07:12 | NUR ---
NURSE HAND-OFF: Important Events on Shift:neurochecks, urine quality Patient Status: awake, alert,oriented Diet: Cardiac Pending Orders: Pending Results/Labs:@D echo, tsh,t4 Pending MD notification: Latest Vital Signs: Temperature 97.1 , Pulse 66 , B/P 125 /63 , Respiratory Rate 18 , O2 SAT 98 , Room Air, O2 Flow Rate . Vital Sign Comment: stable Latest Mahoney Fall Score: 45 Fall Risk: High Risk Safety Measures: Call light Within Reach, Bed Alarm Zone 1, Side Rails Side Rails x2, Bed position Low and Locked. Fall Precautions: Yellow Gown Door Sign Patient Fall Education Report given to Alina SARABIA .
--- NOTE | 2020-05-24 07:34 | NUR ---
NURSE NOTES: Received pt from JENNIFER Brown, pt was resting alert x 4, F/C in place yellowish , call light w/in reach.
[2020-05-24 08:00] VITALS: BP 130/56
[2020-05-24] MEDS: Losartan 50mg tab ORAL SCH (08:35)
[2020-05-24] MEDS: Heparin 5000 units/ml inj SUBQ SCH ×2 (08:36→21:02)
--- NOTE | 2020-05-24 09:10 | Infectious Diseases Prog Note ---
Assessment/Plan 80 yo femalew with PMHx of HTN who was sent to the ED by her niece for confusion. Right Ear infection Dysuria r/o UTI UA (-) Cx Pending AMS - Resolved HTN Plan - Continue Ceftriaxone #3 On D/C could switch to PO Augmentin 875 BID ( End date 05/27/20) - Monitor CBC and Temps Thank you for this consult. [facility] will continue to follow Ms. Galaviz with you during her hospitalization. Subjective Allergies: Coded Allergies: No Known Allergies (Unverified , 05/22/20) Afebrile No Leukocytosis HESHAM Objective Last 24 Hour Vital Signs Date Time Temp Pulse Resp B/P (MAP) Pulse Ox O2 Delivery O2 Flow Rate FiO2 05/24/20 08:35 130/56 05/24/20 08:00 98.3 73 18 130/56 (80) 98 05/24/20 04:00 97.1 66 18 125/63 (83) 98 05/24/20 00:00 96.8 69 18 127/58 (81) 98 05/23/20 21:00 Room Air 05/23/20 20:00 98.0 68 16 133/61 (85) 97 05/23/20 18:29 97.3 05/23/20 18:25 97.3 68 16 130/55 (80) 99 05/23/20 16:00 66 05/23/20 15:28 100.8 70 18 148/53 (84) 99 05/23/20 12:00 98.1 92 18 140/50 (80) 98 05/23/20 12:00 64 05/23/20 09:27 153/50 Height (Feet): 5 Height (Inches): 8.00 Weight (Pounds): 126 Microbiology Date/Time Source Procedure Growth Status 05/22/20 20:20 Blood Blood Culture - Preliminary NO GROWTH AFTER 24 HOURS Resulted 05/22/20 20:05 Blood Blood Culture - Preliminary NO GROWTH AFTER 24 HOURS Resulted Laboratory Tests Test 05/24/20 05:05 Thyroid Stimulating Hormone (TSH) 1.124 uiU/mL (0.358-3.740) Free Thyroxine 1.16 NG/DL (0.76-1.46) Current Medications Medications (Trade) Dose Ordered Sig/James Route PRN Reason Start Time Stop Time Status Last Admin Dose Admin Acetaminophen (Tylenol) 650 mg Q6H PRN ORAL For Pain and Fever 05/23/20 01:45 06/22/20 01:44 05/23/20 17:59 Alprazolam (Xanax) 0.25 mg Q6H PRN ORAL For Anxiety 05/23/20 01:45 05/30/20 01:44 Ceftriaxone Sodium 1 gm/ Dextrose 55 ml @ 110 mls/hr Q24H IVPB 05/23/20 21:00 05/30/20 20:59 05/23/20 21:01 Clonidine HCl (Catapres Tab) 0.1 mg Q4H PRN ORAL SBP >160 05/23/20 07:45 08/21/20 07:44 Dextrose/ Electrolytes 1,000 ml @ 75 mls/hr [id number] IV 05/23/20 09:00 06/22/20 08:59 05/23/20 22:27 Heparin Sodium (Porcine) (Heparin 5000 units/ml) 5,000 units EVERY 12 HOURS SUBQ 05/23/20 09:00 07/07/20 08:59 05/24/20 08:36 Losartan Potassium (Cozaar) 50 mg DAILY ORAL 05/23/20 09:00 06/22/20 08:59 05/24/20 08:35 Mirtazapine (Remeron) 15 mg BEDTIME ORAL 05/23/20 21:00 08/21/20 20:59 05/23/20 21:01 Ondansetron HCl (Zofran) 4 mg Q4H PRN IVP Nausea & Vomiting 05/23/20 01:45 06/22/20 01:44 Blake Davis MD May 24, 2020 09:10
[2020-05-24 12:00] VITALS: BP 136/67
--- NOTE | 2020-05-24 12:04 | Internal Med Progress Note ---
Subjective Date of Service: May 24, 2020 Physician Name Monty Lopez Attending Physician Lorenzo Basilio MD Current Medications Medications (Trade) Dose Ordered Sig/James Route PRN Reason Start Time Stop Time Status Last Admin Dose Admin Acetaminophen (Tylenol) 650 mg Q6H PRN ORAL For Pain and Fever 05/23/20 01:45 06/22/20 01:44 05/23/20 17:59 Alprazolam (Xanax) 0.25 mg Q6H PRN ORAL For Anxiety 05/23/20 01:45 05/30/20 01:44 Ceftriaxone Sodium 1 gm/ Dextrose 55 ml @ 110 mls/hr Q24H IVPB 05/23/20 21:00 05/30/20 20:59 05/23/20 21:01 Clonidine HCl (Catapres Tab) 0.1 mg Q4H PRN ORAL SBP >160 05/23/20 07:45 08/21/20 07:44 Dextrose/ Electrolytes 1,000 ml @ 75 mls/hr [id number] IV 05/23/20 09:00 06/22/20 08:59 05/23/20 22:27 Heparin Sodium (Porcine) (Heparin 5000 units/ml) 5,000 units EVERY 12 HOURS SUBQ 05/23/20 09:00 07/07/20 08:59 05/24/20 08:36 Losartan Potassium (Cozaar) 50 mg DAILY ORAL 05/23/20 09:00 06/22/20 08:59 05/24/20 08:35 Mirtazapine (Remeron) 15 mg BEDTIME ORAL 05/23/20 21:00 08/21/20 20:59 05/23/20 21:01 Ondansetron HCl (Zofran) 4 mg Q4H PRN IVP Nausea & Vomiting 05/23/20 01:45 06/22/20 01:44 Allergies: Coded Allergies: No Known Allergies (Unverified , 05/22/20) ROS Limited/Unobtainable: Yes Subjective 80 YO F admitted with altered mental status. Now UTI. Cover for Int Ángel-DR Basilio Objective Last Vital Signs Date Time Temp Pulse Resp B/P (MAP) Pulse Ox O2 Delivery O2 Flow Rate FiO2 05/24/20 09:00 Room Air 05/24/20 08:35 130/56 05/24/20 08:00 98.3 73 18 98 Laboratory Tests Test 05/24/20 05:05 Thyroid Stimulating Hormone (TSH) 1.124 uiU/mL (0.358-3.740) Free Thyroxine 1.16 NG/DL (0.76-1.46) Microbiology Date/Time Source Procedure Growth Status 05/22/20 20:20 Blood Blood Culture - Preliminary NO GROWTH AFTER 24 HOURS Resulted 05/22/20 20:05 Blood Blood Culture - Preliminary NO GROWTH AFTER 24 HOURS Resulted Intake and Output 05/23/20 05/24/20 19:00 07:00 Intake Total 675 ml 1255 ml Output Total 3200 ml Balance 675 ml -1945 ml Intake Oral 300 ml IV Total 75 ml 955 ml Other 600 ml Output Urine Total 3200 ml Objective PHYSICAL EXAMINATION: GENERAL: The patient is awake and responsive, in no acute distress. HEAD AND NECK: Pupils are reactive to light. Extraocular movements are intact. Right ear has mild erythematous external ear canal, some granulation changes. Neck was supple. No JVD. LUNGS: Good air entry. No wheezing or rales. HEART: S1, S2. Regular rhythm. No gallops. ABDOMEN: Soft, nondistended, and nontender. Positive bowel sounds. EXTREMITIES: No cyanosis, clubbing, or edema. NEUROLOGIC: Cranial nerves II through XII grossly intact. Motor is 5/5 in all extremities. Gait is intact. RECTAL AND GENITOURINARY: Refused and deferred. PSYCHIATRIC: Mood and affect is intact. Assessment/Plan Assessment/Plan ASSESSMENT: 1. Altered mental status, most likely secondary to toxic metabolic encephalopathy as a result of dehydration and infection. 2. Hypertension. 3. Urinary tract infection. 4. Right ear otitis externa. PLAN: 1. Admit the patient to med/surg. 2. antibiotic = Rocephin. 3. ID consultation = Dr. Blake Davis 4. Cardiology consultation = Dr. Patel 5. Pulmonary consultation = Dr. Irving 6. Code status is Full Code. 7. DVT prophylaxis = heparin subcutaneous. Monty Lopez MD May 24, 2020 12:04
[2020-05-24] MEDS: D5 1/2NS w/KCl 20mEq 1,000 ML IV SCH (12:24)
--- NOTE | 2020-05-24 14:30 | NUR ---
NURSE NOTES: pt c/o headache and nausea administered Tylenol and Zofran. pt stated that she was scared current situation like Covid -19 or can't go outside that made her emotional stress that made her nauseous.
--- NOTE | 2020-05-24 15:10 | Pulmonology Progress Note ---
Subjective ROS Limited/Unobtainable: Yes Constitutional: Reports: no symptoms HEENT: Repors: no symptoms Allergies: Coded Allergies: No Known Allergies (Unverified , 05/22/20) Objective Last 24 Hour Vital Signs Date Time Temp Pulse Resp B/P (MAP) Pulse Ox O2 Delivery O2 Flow Rate FiO2 05/24/20 09:00 Room Air 05/24/20 08:35 130/56 05/24/20 08:00 98.3 73 18 130/56 (80) 98 05/24/20 04:00 97.1 66 18 125/63 (83) 98 05/24/20 00:00 96.8 69 18 127/58 (81) 98 05/23/20 21:00 Room Air 05/23/20 20:00 98.0 68 16 133/61 (85) 97 05/23/20 18:29 97.3 05/23/20 18:25 97.3 68 16 130/55 (80) 99 05/23/20 16:00 66 05/23/20 15:28 100.8 70 18 148/53 (84) 99 Intake and Output 05/23/20 05/24/20 19:00 07:00 Intake Total 675 ml 1255 ml Output Total 3200 ml Balance 675 ml -1945 ml Intake Oral 300 ml IV Total 75 ml 955 ml Other 600 ml Output Urine Total 3200 ml General Appearance: WD/WN, no acute distress HEENT: normocephalic Respiratory: chest wall non-tender, lungs clear Breasts: no masses Cardiovascular: normal peripheral pulses, normal rate Abdomen: normal bowel sounds, soft, non tender Genitourinary: normal external genitalia Extremities: no cyanosis Neurologic: manager corporate strategy II-XII grossly normal Microbiology Date/Time Source Procedure Growth Status 05/22/20 20:20 Blood Blood Culture - Preliminary NO GROWTH AFTER 24 HOURS Resulted 05/22/20 20:05 Blood Blood Culture - Preliminary NO GROWTH AFTER 24 HOURS Resulted Laboratory Tests 05/24/20 05:05: Thyroid Stimulating Hormone (TSH) 1.124, Free Thyroxine 1.16 Current Medications Medications (Trade) Dose Ordered Sig/James Route PRN Reason Start Time Stop Time Status Last Admin Dose Admin Acetaminophen (Tylenol) 650 mg Q6H PRN ORAL For Pain and Fever 05/23/20 01:45 06/22/20 01:44 05/24/20 12:14 Alprazolam (Xanax) 0.25 mg Q6H PRN ORAL For Anxiety 05/23/20 01:45 05/30/20 01:44 Ceftriaxone Sodium 1 gm/ Dextrose 55 ml @ 110 mls/hr Q24H IVPB 05/23/20 21:00 05/30/20 20:59 05/23/20 21:01 Clonidine HCl (Catapres Tab) 0.1 mg Q4H PRN ORAL SBP >160 05/23/20 07:45 08/21/20 07:44 Dextrose/ Electrolytes 1,000 ml @ 75 mls/hr [id number] IV 05/23/20 09:00 06/22/20 08:59 05/24/20 12:24 Heparin Sodium (Porcine) (Heparin 5000 units/ml) 5,000 units EVERY 12 HOURS SUBQ 05/23/20 09:00 07/07/20 08:59 05/24/20 08:36 Losartan Potassium (Cozaar) 50 mg DAILY ORAL 05/23/20 09:00 06/22/20 08:59 05/24/20 08:35 Mirtazapine (Remeron) 15 mg BEDTIME ORAL 05/23/20 21:00 08/21/20 20:59 05/23/20 21:01 Ondansetron HCl (Zofran) 4 mg Q4H PRN IVP Nausea & Vomiting 05/23/20 01:45 06/22/20 01:44 05/24/20 14:18 Assessment/Plan Problems: (1) UTI (urinary tract infection) (2) Otitis (3) History of hypertension Assessment/Plan doing better urine culture iv abx ID evaluation appreciated monitor BP continue home antihypertensive agents. dvt prophylaxis. Pamela Irving MD May 24, 2020 15:10
[2020-05-24 16:00] VITALS: BP 143/60
--- NOTE | 2020-05-24 16:51 | Cardiac Electrophysiology PN ---
Assessment/Plan Assessment/Plan 1. Altered mental status. Resolved. EKG is normal. Patient already ruled out for myocardial infarction. Urine toxicology screen is negative. Echocardiogram showed EF 65%. 2. Hypertension. Continue losartan 50 mg daily. Patient is also on p.r.n. clonidine as well. 3. Urinary tract infection, on ceftriaxone per ID. 4. Homelessness Subjective Subjective Very alert today. ECG and ECho were normal Objective Last 24 Hour Vital Signs Date Time Temp Pulse Resp B/P (MAP) Pulse Ox O2 Delivery O2 Flow Rate FiO2 05/24/20 09:00 Room Air 05/24/20 08:35 130/56 05/24/20 08:00 98.3 73 18 130/56 (80) 98 05/24/20 04:00 97.1 66 18 125/63 (83) 98 05/24/20 00:00 96.8 69 18 127/58 (81) 98 05/23/20 21:00 Room Air 05/23/20 20:00 98.0 68 16 133/61 (85) 97 05/23/20 18:29 97.3 05/23/20 18:25 97.3 68 16 130/55 (80) 99 Intake and Output 05/23/20 05/24/20 19:00 07:00 Intake Total 675 ml 1255 ml Output Total 3200 ml Balance 675 ml -1945 ml Intake Oral 300 ml IV Total 75 ml 955 ml Other 600 ml Output Urine Total 3200 ml Laboratory Tests Test 05/24/20 05:05 Thyroid Stimulating Hormone (TSH) 1.124 uiU/mL (0.358-3.740) Free Thyroxine 1.16 NG/DL (0.76-1.46) Microbiology Date/Time Source Procedure Growth Status 05/22/20 20:20 Blood Blood Culture - Preliminary NO GROWTH AFTER 24 HOURS Resulted 05/22/20 20:05 Blood Blood Culture - Preliminary NO GROWTH AFTER 24 HOURS Resulted Objective HEAD AND NECK: Showed no JVD. LUNGS: Clear. CARDIOVASCULAR: Shows regular S1 and S2 with no gallop or murmur. ABDOMEN: Soft. EXTREMITIES: No pitting edema. Gerardo Patel MD May 24, 2020 16:51
--- NOTE | 2020-05-24 19:33 | NUR ---
HAND-OFF: Report given to JENNIFER Hutchins. pt is stable condition.
--- NOTE | 2020-05-24 19:35 | NUR ---
NURSE NOTES: Received report from JENNIFER Fung. Patient alert, oriented x4, able to communicate well in Colombian with nurse. States she felt anxious earlier, but feels well now. Patient appears relaxed. IV in LFA, intact and patent, infusing IVF. Teixeira catheter in place, patent draining clear yellow urine. Per AM report, FC needed due to urinary retention. Patient denies any pain or discomfort. Encouraged to call as needed for assistance OOB. Patient verbalizes understanding. Bed in low position, locked side rails up x2, call light within reach. Will continue to monitor.
[2020-05-24 20:00] VITALS: BP 110/60
[2020-05-24] MEDS: cefTRIAXone 1 GM in D5W 55 ML IVPB SCH (21:02)
--- NOTE | 2020-05-24 22:30 | NUR ---
NURSE NOTES: Pt requested not to be awakened for vitals signs at midnight.
[2020-05-24] MEDS: ALPRAZolam 0.25mg tab ORAL PRN (22:32)
--- NOTE | 2020-05-24 23:05 | NUR ---
NURSE NOTES: Received phone call from patient's niece, Kathryn Deutsch [phone], she would like results of tests. Will pass onto AM shift to have physician call family for update. Niece verbalizes understanding of procedures to obtain results.
[2020-05-25] MEDS: D5 1/2NS w/KCl 20mEq 1,000 ML IV SCH ×2 (01:00→13:27)
--- NOTE | 2020-05-25 04:06 | NUR ---
NURSE NOTES: Patient sleeping, respirations unlabored.
[2020-05-25 05:49] LABS: EOSINOPHILS % (AUTO) 3.9 % (0.0-3.0); HEMATOCRIT 39.3 % (37.0-47.0); HEMOGLOBIN 13.3 G/DL (12.0-16.0); LYMPHOCYTES % (AUTO) 21.5 % (20.0-45.0); MEAN CORPUSCULAR VOLUME 84 FL (80-99); NEUTROPHILS % (AUTO) 65.7 % (45.0-75.0); PLATELET COUNT 265 K/UL (150-450); RED BLOOD COUNT 4.67 M/UL (4.20-5.40); RED CELL DISTRIBUTION WIDTH 13.3 % (11.6-14.8); WHITE BLOOD COUNT 6.2 K/UL (4.8-10.8)
[2020-05-25 06:11] LABS: ANION GAP 3 mmol/L (5-15); BLOOD UREA NITROGEN 8 mg/dL (7-18); CALCIUM 8.5 MG/DL (8.5-10.1); CARBON DIOXIDE 29 MMOL/L (21-32); CHLORIDE 107 MMOL/L (98-107); CREATININE 0.9 MG/DL (0.55-1.30); POTASSIUM 4.8 MMOL/L (3.5-5.1); SODIUM 139 MMOL/L (136-145)
--- NOTE | 2020-05-25 07:15 | NUR ---
NURSE HAND-OFF: Important Events on Shift: Patient Status: stable Diet: Cardiac Pending Orders: Pending Results/Labs Pending MD notification: Latest Vital Signs: Temperature 98.6 , Pulse 76 , B/P 110 /60 , Respiratory Rate 18 , O2 SAT 97 , Room Air, O2 Flow Rate . Vital Sign Comment: Latest Mahoney Fall Score: 30 Fall Risk: Medium Risk Safety Measures: Call light Within Reach, Bed Alarm Zone 1, Side Rails Side Rails x2, Bed position Low and Locked. Fall Precautions: Yellow Socks Yellow Gown Door Sign Patient Fall Education Report given to JENNIFER Mendez. Rounds done.
[2020-05-25 08:00] VITALS: BP 143/69
--- NOTE | 2020-05-25 08:00 | NUR ---
NURSE NOTES: Received report from Mariam RODRIGUEZ, pt a/a/o x4 laying in bed with no signs of distress or other issues at this time. no skin issues noted at this time. IV on the left FA gauge #20 running D51/2 NS +20mEq@75ml/hr. Teixeira cath in place draining well. Call light within reach, bed in lowest position. side rales up x2. I will f/u as needed.
[2020-05-25] MEDS: Losartan 50mg tab ORAL SCH (08:33)
[2020-05-25] MEDS: Heparin 5000 units/ml inj SUBQ SCH ×2 (08:34→21:25)
[2020-05-25 12:00] VITALS: BP 181/70
--- NOTE | 2020-05-25 13:06 | Pulmonology Progress Note ---
Subjective ROS Limited/Unobtainable: Yes Constitutional: Reports: no symptoms HEENT: Repors: no symptoms Allergies: Coded Allergies: No Known Allergies (Unverified , 05/22/20) Objective Last 24 Hour Vital Signs Date Time Temp Pulse Resp B/P (MAP) Pulse Ox O2 Delivery O2 Flow Rate FiO2 05/25/20 12:00 98.3 77 16 181/70 (107) 97 05/25/20 11:59 181/70 05/25/20 09:00 Room Air 05/25/20 08:33 143/69 05/25/20 08:00 98.4 82 16 143/69 (93) 99 05/24/20 21:00 Room Air 05/24/20 20:00 98.6 75 18 110/60 (77) 97 76 05/24/20 16:00 98.4 74 18 143/60 (87) 97 Intake and Output 05/24/20 05/25/20 19:00 07:00 Intake Total 600 ml 450 ml Output Total 1200 ml 2800 ml Balance -600 ml -2350 ml Intake Oral 450 ml Other 600 ml Output Urine Total 1200 ml 2800 ml # Bowel Movements 1 2 General Appearance: WD/WN, no acute distress HEENT: normocephalic Respiratory: chest wall non-tender, lungs clear Breasts: no masses Cardiovascular: normal peripheral pulses, normal rate Abdomen: normal bowel sounds, soft, non tender Genitourinary: normal external genitalia Extremities: no cyanosis 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 Microbiology Date/Time Source Procedure Growth Status 05/22/20 20:20 Blood Blood Culture - Preliminary NO GROWTH AFTER 24 HOURS Resulted 05/22/20 20:05 Blood Blood Culture - Preliminary NO GROWTH AFTER 24 HOURS Resulted Laboratory Tests 05/25/20 05:10: White Blood Count 6.2, Red Blood Count 4.67, Hemoglobin 13.3, Hematocrit 39.3, Mean Corpuscular Volume 84, Mean Corpuscular Hemoglobin 28.6, Mean Corpuscular Hemoglobin Concent 34.0, Red Cell Distribution Width 13.3, Platelet Count 265, Mean Platelet Volume 6.7, Neutrophils (%) (Auto) 65.7, Lymphocytes (%) (Auto) 21.5, Monocytes (%) (Auto) 8.0, Eosinophils (%) (Auto) 3.9H, Basophils (%) (Auto) 1.0, Sodium Level 139, Potassium Level 4.8, Chloride Level 107, Carbon Dioxide Level 29, Anion Gap 3L, Blood Urea Nitrogen 8, Creatinine 0.9, Estimat Glomerular Filtration Rate > 60, Glucose Level 109H, Calcium Level 8.5 Current Medications Medications (Trade) Dose Ordered Sig/James Route PRN Reason Start Time Stop Time Status Last Admin Dose Admin Acetaminophen (Tylenol) 650 mg Q6H PRN ORAL For Pain and Fever 05/23/20 01:45 06/22/20 01:44 05/24/20 12:14 Alprazolam (Xanax) 0.25 mg Q6H PRN ORAL For Anxiety 05/23/20 01:45 05/30/20 01:44 05/24/20 22:32 Ceftriaxone Sodium 1 gm/ Dextrose 55 ml @ 110 mls/hr Q24H IVPB 05/23/20 21:00 05/30/20 20:59 05/24/20 21:02 Clonidine HCl (Catapres Tab) 0.1 mg Q4H PRN ORAL SBP >160 05/23/20 07:45 08/21/20 07:44 05/25/20 11:59 Dextrose/ Electrolytes 1,000 ml @ 75 mls/hr [id number] IV 05/23/20 09:00 06/22/20 08:59 05/25/20 01:00 Heparin Sodium (Porcine) (Heparin 5000 units/ml) 5,000 units EVERY 12 HOURS SUBQ 05/23/20 09:00 07/07/20 08:59 05/25/20 08:34 Losartan Potassium (Cozaar) 50 mg DAILY ORAL 05/23/20 09:00 06/22/20 08:59 05/25/20 08:33 Mirtazapine (Remeron) 15 mg BEDTIME ORAL 05/23/20 21:00 08/21/20 20:59 05/24/20 21:02 Ondansetron HCl (Zofran) 4 mg Q4H PRN IVP Nausea & Vomiting 05/23/20 01:45 06/22/20 01:44 05/24/20 14:18 Assessment/Plan Problems: (1) UTI (urinary tract infection) (2) Otitis (3) History of hypertension Assessment/Plan afebrile doing better urine culture, still pending iv abx ID evaluation appreciated monitor BP continue home antihypertensive agents. dvt prophylaxis. Pamela Irving MD May 25, 2020 13:06
[2020-05-25 14:57] VITALS: BP 132/64
[2020-05-25 16:00] VITALS: BP 118/60
--- NOTE | 2020-05-25 16:22 | NUR ---
PT Note PT romulo completed, treatment initiated. Patient has muscle weakness with decrease postural stability, making her at risk for falls. Patient can benefit from PT services to increase her muscle strength and balance to improve her safety in mobility and gait. Addendum: 05/25/20 at 1622 by AYANNA FLORES PT Amended: Links added.
--- NOTE | 2020-05-25 17:37 | Internal Med Progress Note ---
Subjective Date of Service: May 25, 2020 Physician Name Monty Lopez Attending Physician Lorenzo Basilio MD Current Medications Medications (Trade) Dose Ordered Sig/James Route PRN Reason Start Time Stop Time Status Last Admin Dose Admin Acetaminophen (Tylenol) 650 mg Q6H PRN ORAL For Pain and Fever 05/23/20 01:45 06/22/20 01:44 05/24/20 12:14 Alprazolam (Xanax) 0.25 mg Q6H PRN ORAL For Anxiety 05/23/20 01:45 05/30/20 01:44 05/24/20 22:32 Ceftriaxone Sodium 1 gm/ Dextrose 55 ml @ 110 mls/hr Q24H IVPB 05/23/20 21:00 05/30/20 20:59 05/24/20 21:02 Clonidine HCl (Catapres Tab) 0.1 mg Q4H PRN ORAL SBP >160 05/23/20 07:45 08/21/20 07:44 05/25/20 11:59 Dextrose/ Electrolytes 1,000 ml @ 75 mls/hr [id number] IV 05/23/20 09:00 06/22/20 08:59 05/25/20 13:27 Heparin Sodium (Porcine) (Heparin 5000 units/ml) 5,000 units EVERY 12 HOURS SUBQ 05/23/20 09:00 07/07/20 08:59 05/25/20 08:34 Losartan Potassium (Cozaar) 50 mg DAILY ORAL 05/23/20 09:00 06/22/20 08:59 05/25/20 08:33 Mirtazapine (Remeron) 15 mg BEDTIME ORAL 05/23/20 21:00 08/21/20 20:59 05/24/20 21:02 Ondansetron HCl (Zofran) 4 mg Q4H PRN IVP Nausea & Vomiting 05/23/20 01:45 06/22/20 01:44 05/24/20 14:18 Allergies: Coded Allergies: No Known Allergies (Unverified , 05/22/20) ROS Limited/Unobtainable: No Constitutional: Reports: no symptoms HEENT: Reports: no symptoms Cardiovascular: Reports: no symptoms Respiratory: Reports: no symptoms Gastrointestinal/Abdominal: Reports: no symptoms Genitourinary: Reports: no symptoms Neurologic/Psychiatric: Reports: no symptoms Subjective 80 YO F admitted with altered mental status. Now UTI. Cover for Int Ángel-DR Basilio Objective Last Vital Signs Date Time Temp Pulse Resp B/P (MAP) Pulse Ox O2 Delivery O2 Flow Rate FiO2 05/25/20 16:00 98.5 78 16 118/60 (79) 99 05/25/20 09:00 Room Air Laboratory Tests Test 05/25/20 05:10 White Blood Count 6.2 K/UL (4.8-10.8) Red Blood Count 4.67 M/UL (4.20-5.40) Hemoglobin 13.3 G/DL (12.0-16.0) Hematocrit 39.3 % (37.0-47.0) Mean Corpuscular Volume 84 FL (80-99) Mean Corpuscular Hemoglobin 28.6 PG (27.0-31.0) Mean Corpuscular Hemoglobin Concent 34.0 G/DL (32.0-36.0) Red Cell Distribution Width 13.3 % (11.6-14.8) Platelet Count 265 K/UL (150-450) Mean Platelet Volume 6.7 FL (6.5-10.1) Neutrophils (%) (Auto) 65.7 % (45.0-75.0) Lymphocytes (%) (Auto) 21.5 % (20.0-45.0) Monocytes (%) (Auto) 8.0 % (1.0-10.0) Eosinophils (%) (Auto) 3.9 % (0.0-3.0) H Basophils (%) (Auto) 1.0 % (0.0-2.0) Sodium Level 139 MMOL/L (136-145) Potassium Level 4.8 MMOL/L (3.5-5.1) Chloride Level 107 MMOL/L (98-107) Carbon Dioxide Level 29 MMOL/L (21-32) Anion Gap 3 mmol/L (5-15) L Blood Urea Nitrogen 8 mg/dL (7-18) Creatinine 0.9 MG/DL (0.55-1.30) Estimat Glomerular Filtration Rate > 60 mL/min (>60) Glucose Level 109 MG/DL (74-106) H Calcium Level 8.5 MG/DL (8.5-10.1) Microbiology Date/Time Source Procedure Growth Status 05/22/20 20:20 Blood Blood Culture - Preliminary NO GROWTH AFTER 24 HOURS Resulted 05/22/20 20:05 Blood Blood Culture - Preliminary NO GROWTH AFTER 24 HOURS Resulted Intake and Output 05/24/20 05/25/20 19:00 07:00 Intake Total 600 ml 450 ml Output Total 1200 ml 2800 ml Balance -600 ml -2350 ml Intake Oral 450 ml Other 600 ml Output Urine Total 1200 ml 2800 ml # Bowel Movements 1 2 Objective PHYSICAL EXAMINATION: GENERAL: The patient is awake and responsive, in no acute distress. HEAD AND NECK: Pupils are reactive to light. Extraocular movements are intact. Right ear has mild erythematous external ear canal, some granulation changes. Neck was supple. No JVD. LUNGS: Good air entry. No wheezing or rales. HEART: S1, S2. Regular rhythm. No gallops. ABDOMEN: Soft, nondistended, and nontender. Positive bowel sounds. EXTREMITIES: No cyanosis, clubbing, or edema. NEUROLOGIC: Cranial nerves II through XII grossly intact. Motor is 5/5 in all extremities. Gait is intact. RECTAL AND GENITOURINARY: Refused and deferred. PSYCHIATRIC: Mood and affect is intact. Assessment/Plan Assessment/Plan ASSESSMENT: 1. Altered mental status, most likely secondary to toxic metabolic encephalopathy as a result of dehydration and infection. 2. Hypertension. 3. Urinary tract infection. 4. Right ear otitis externa. PLAN: 1. Admit the patient to med/surg. 2. antibiotic = Rocephin. 3. ID consultation = Dr. Blake Davis 4. Cardiology consultation = Dr. Patel 5. Pulmonary consultation = Dr. Irving 6. Code status is Full Code. 7. DVT prophylaxis = heparin subcutaneous. 8. Discharge in am 05/26/20 Monty Lopez MD May 25, 2020 17:37
--- NOTE | 2020-05-25 17:58 | Cardiac Electrophysiology PN ---
Assessment/Plan Assessment/Plan 1. Altered mental status. Resolved. EKG is normal. Patient already ruled out for myocardial infarction. Urine toxicology screen is negative. Echocardiogram showed EF 65%. 2. Hypertension. Continue losartan 50 mg daily. Patient is also on p.r.n. clonidine as well. 3. Urinary tract infection, on ceftriaxone per ID. 4. Homelessness DC planning Subjective Subjective Very alert. ECG and ECho were normal Objective Last 24 Hour Vital Signs Date Time Temp Pulse Resp B/P (MAP) Pulse Ox O2 Delivery O2 Flow Rate FiO2 05/25/20 16:00 98.5 78 16 118/60 (79) 99 05/25/20 14:57 77 132/64 (86) 05/25/20 12:00 98.3 77 16 181/70 (107) 97 05/25/20 11:59 181/70 05/25/20 09:00 Room Air 05/25/20 08:33 143/69 05/25/20 08:00 98.4 82 16 143/69 (93) 99 05/24/20 21:00 Room Air 05/24/20 20:00 98.6 75 18 110/60 (77) 97 76 Intake and Output 05/24/20 05/25/20 19:00 07:00 Intake Total 600 ml 450 ml Output Total 1200 ml 2800 ml Balance -600 ml -2350 ml Intake Oral 450 ml Other 600 ml Output Urine Total 1200 ml 2800 ml # Bowel Movements 1 2 Laboratory Tests Test 05/25/20 05:10 White Blood Count 6.2 K/UL (4.8-10.8) Red Blood Count 4.67 M/UL (4.20-5.40) Hemoglobin 13.3 G/DL (12.0-16.0) Hematocrit 39.3 % (37.0-47.0) Mean Corpuscular Volume 84 FL (80-99) Mean Corpuscular Hemoglobin 28.6 PG (27.0-31.0) Mean Corpuscular Hemoglobin Concent 34.0 G/DL (32.0-36.0) Red Cell Distribution Width 13.3 % (11.6-14.8) Platelet Count 265 K/UL (150-450) Mean Platelet Volume 6.7 FL (6.5-10.1) Neutrophils (%) (Auto) 65.7 % (45.0-75.0) Lymphocytes (%) (Auto) 21.5 % (20.0-45.0) Monocytes (%) (Auto) 8.0 % (1.0-10.0) Eosinophils (%) (Auto) 3.9 % (0.0-3.0) H Basophils (%) (Auto) 1.0 % (0.0-2.0) Sodium Level 139 MMOL/L (136-145) Potassium Level 4.8 MMOL/L (3.5-5.1) Chloride Level 107 MMOL/L (98-107) Carbon Dioxide Level 29 MMOL/L (21-32) Anion Gap 3 mmol/L (5-15) L Blood Urea Nitrogen 8 mg/dL (7-18) Creatinine 0.9 MG/DL (0.55-1.30) Estimat Glomerular Filtration Rate > 60 mL/min (>60) Glucose Level 109 MG/DL (74-106) H Calcium Level 8.5 MG/DL (8.5-10.1) Microbiology Date/Time Source Procedure Growth Status 05/22/20 20:20 Blood Blood Culture - Preliminary NO GROWTH AFTER 24 HOURS Resulted 05/22/20 20:05 Blood Blood Culture - Preliminary NO GROWTH AFTER 24 HOURS Resulted Objective HEAD AND NECK: Showed no JVD. LUNGS: Clear. CARDIOVASCULAR: Shows regular S1 and S2 with no gallop or murmur. ABDOMEN: Soft. EXTREMITIES: No pitting edema. Gerardo Patel MD May 25, 2020 17:58
--- NOTE | 2020-05-25 18:00 | NUR ---
NURSE NOTES: Received prescriptions from Dr. Lopez. called and faxed info to [facility] at [phone](P) [phone](F). I will f/u as needed.
--- NOTE | 2020-05-25 19:02 | NUR ---
NURSE HAND-OFF: Important Events on Shift:[] Patient Status: full code Diet: cardiac diet Pending Orders: dc orders Pending Results/Labs:UA and BCX results pending Pending MD notification: ID once results are in. Latest Vital Signs: Temperature 98.5 , Pulse 78 , B/P 118 /60 , Respiratory Rate 16 , O2 SAT 99 , Room Air, O2 Flow Rate . Vital Sign Comment: BP elevated 181/70 at 12:00, clonidine given x1 Latest Mahoney Fall Score: 30 Fall Risk: Medium Risk Safety Measures: Call light Within Reach, Bed Alarm Zone 1, Side Rails Side Rails x2, Bed position Low and Locked. Fall Precautions: pt is able to ambulate around her room with steady gait and staff supervision Yellow Socks Yellow Gown Door Sign Patient Fall Education Report given to Mariam RODRIGUEZ, pt in stable condition. in coming nurse is aware that RX have been faxed to [facility]. plan to d/c home tomorrow.
--- NOTE | 2020-05-25 19:04 | NUR ---
NURSE NOTES: Received report from JENNIFER Mendez. Patient in stable condition, plan is to be discharged home tomorrow.
--- NOTE | 2020-05-25 19:45 | NUR ---
NURSE NOTES: Patient doing well, no distress noted. No complaints of pain, alert, oriented x4. States she's ready to go home. Observed ambulating to bathroom without difficulty. Bed in low position, locked, side rails up x2, call light within reach. Will continue to monitor.
[2020-05-25 20:00] VITALS: BP 139/59
[2020-05-25] MEDS: cefTRIAXone 1 GM in D5W 55 ML IVPB SCH (21:23)
[2020-05-25] MEDS: ALPRAZolam 0.25mg tab ORAL PRN (22:45)
[2020-05-26] MEDS: D5 1/2NS w/KCl 20mEq 1,000 ML IV SCH (03:00)
--- NOTE | 2020-05-26 06:39 | NUR ---
NURSE HAND-OFF: Important Events on Shift: patient slept throughout the night, requested not to be awakened, no distress noted Patient Status: stable Diet: Cardiac Pending Orders: Discharge planned for today Pending Results/Labs: Pending MD notification: Latest Vital Signs: Temperature 98.4 , Pulse 78 , B/P 139 /59 , Respiratory Rate 20 , O2 SAT 97 , Room Air, O2 Flow Rate . Vital Sign Comment: Latest Mahoney Fall Score: 20 Fall Risk: Low Risk Safety Measures: Call light Within Reach, Bed Alarm Zone 1, Side Rails Side Rails x2, Bed position Low and Locked. Fall Precautions: Yellow Socks Yellow Gown Door Sign Patient Fall Education
--- NOTE | 2020-05-26 07:25 | NUR ---
HAND-OFF: Report given to JENNIFER Mendez.
[2020-05-26 08:00] VITALS: BP 111/66
--- NOTE | 2020-05-26 08:00 | NUR ---
NURSE NOTES: Received report from Mariam RODRIGUEZ, pt a/a/o x4 laying in bed with no signs of distress or other issues at this time. IV on the left FA gauge#20 running IVF@75ml/hr. pt is ambulatory. no skin issues. call light within reach, bed in lowest position. side rales up x2. I will f/u as needed. plan to d.c home today. family will provide transportation.
[2020-05-26] MEDS: Losartan 50mg tab ORAL SCH (08:19)
[2020-05-26] MEDS: Heparin 5000 units/ml inj SUBQ SCH (08:20)
--- NOTE | 2020-05-26 10:57 | Pulmonology Progress Note ---
Subjective ROS Limited/Unobtainable: No Constitutional: Reports: no symptoms HEENT: Repors: no symptoms Allergies: Coded Allergies: No Known Allergies (Unverified , 05/22/20) Objective Last 24 Hour Vital Signs Date Time Temp Pulse Resp B/P (MAP) Pulse Ox O2 Delivery O2 Flow Rate FiO2 05/26/20 09:00 Room Air 05/26/20 08:19 111/69 05/26/20 08:00 98.3 72 18 111/66 (81) 98 05/25/20 21:00 Room Air 05/25/20 20:00 98.4 78 20 139/59 (85) 97 05/25/20 16:00 98.5 78 16 118/60 (79) 99 05/25/20 14:57 77 132/64 (86) 05/25/20 12:00 98.3 77 16 181/70 (107) 97 05/25/20 11:59 181/70 Intake and Output 05/25/20 05/26/20 19:00 07:00 Intake Total 600 ml 450 ml Output Total 600 ml Balance 0 ml 450 ml Intake Oral 600 ml 450 ml Output Urine Total 600 ml # Voids 2 # Bowel Movements 1 General Appearance: WD/WN, no acute distress HEENT: normocephalic Respiratory: chest wall non-tender, lungs clear Breasts: no masses Cardiovascular: normal peripheral pulses, normal rate Abdomen: normal bowel sounds, soft, non tender Genitourinary: normal external genitalia Extremities: no cyanosis 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 Current Medications Medications (Trade) Dose Ordered Sig/James Route PRN Reason Start Time Stop Time Status Last Admin Dose Admin Acetaminophen (Tylenol) 650 mg Q6H PRN ORAL For Pain and Fever 05/23/20 01:45 06/22/20 01:44 05/24/20 12:14 Alprazolam (Xanax) 0.25 mg Q6H PRN ORAL For Anxiety 05/23/20 01:45 05/30/20 01:44 05/25/20 22:45 Ceftriaxone Sodium 1 gm/ Dextrose 55 ml @ 110 mls/hr Q24H IVPB 05/23/20 21:00 05/30/20 20:59 05/25/20 21:23 Clonidine HCl (Catapres Tab) 0.1 mg Q4H PRN ORAL SBP >160 05/23/20 07:45 08/21/20 07:44 05/25/20 11:59 Dextrose/ Electrolytes 1,000 ml @ 75 mls/hr [id number] IV 05/23/20 09:00 06/22/20 08:59 05/26/20 03:00 Heparin Sodium (Porcine) (Heparin 5000 units/ml) 5,000 units EVERY 12 HOURS SUBQ 05/23/20 09:00 07/07/20 08:59 05/26/20 08:20 Losartan Potassium (Cozaar) 50 mg DAILY ORAL 05/23/20 09:00 06/22/20 08:59 05/26/20 08:19 Mirtazapine (Remeron) 15 mg BEDTIME ORAL 05/23/20 21:00 08/21/20 20:59 05/25/20 21:23 Ondansetron HCl (Zofran) 4 mg Q4H PRN IVP Nausea & Vomiting 05/23/20 01:45 06/22/20 01:44 05/24/20 14:18 Assessment/Plan Problems: (1) UTI (urinary tract infection) (2) Otitis (3) History of hypertension Assessment/Plan afebrile doing better urine culture, still pending iv abx dc home with 2 more days of augmentin monitor BP continue home antihypertensive agents. dvt prophylaxis. Pamela Irving MD May 26, 2020 10:57
[2020-05-26] MEDS ORDERED: AUGMENTIN 875-1 EAC1 ORAL (10:58)
[2020-05-26 12:00] VITALS: BP 143/59
--- NOTE | 2020-05-26 13:16 | NUR ---
*-*DISCHARGE PLANNING*-* PATIENT HAS BEEN REFERRED TO: [facility] P: [phone]
--- NOTE | 2020-05-26 14:12 | Infectious Diseases Prog Note ---
Assessment/Plan 80 yo femalew with PMHx of HTN who was sent to the ED by her niece for confusion. Right Ear infection Dysuria r/o UTI UA (-); ucx n ot sent Bcx NTD Fever, SP no leukocytosis AMS - Resolved HTN Plan - Continue Ceftriaxone #5 On D/C could switch to PO Augmentin 875 BID ( End date 05/27/20) - Monitor CBC and Temps Thank you for this consult. [facility] will continue to follow Ms. Galaviz with you during her hospitalization. Subjective Allergies: Coded Allergies: No Known Allergies (Unverified , 05/22/20) afebrile >48hrs at RA no leukocytosis Objective Last 24 Hour Vital Signs Date Time Temp Pulse Resp B/P (MAP) Pulse Ox O2 Delivery O2 Flow Rate FiO2 05/26/20 12:00 97.8 68 18 143/59 (87) 98 05/26/20 09:00 Room Air 05/26/20 08:19 111/69 05/26/20 08:00 98.3 72 18 111/66 (81) 98 05/25/20 21:00 Room Air 05/25/20 20:00 98.4 78 20 139/59 (85) 97 05/25/20 16:00 98.5 78 16 118/60 (79) 99 05/25/20 14:57 77 132/64 (86) Height (Feet): 5 Height (Inches): 8.00 Weight (Pounds): 126 General Appearance: WD/WN, no acute distress HEENT: normocephalic Respiratory: chest wall non-tender, lungs clear Breasts: no masses Cardiovascular: normal peripheral pulses, normal rate Abdomen: normal bowel sounds, soft, non tender Genitourinary: normal external genitalia Extremities: no cyanosis 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 Current Medications Medications (Trade) Dose Ordered Sig/James Route PRN Reason Start Time Stop Time Status Last Admin Dose Admin Acetaminophen (Tylenol) 650 mg Q6H PRN ORAL For Pain and Fever 05/23/20 01:45 06/22/20 01:44 05/24/20 12:14 Alprazolam (Xanax) 0.25 mg Q6H PRN ORAL For Anxiety 05/23/20 01:45 05/30/20 01:44 05/25/20 22:45 Ceftriaxone Sodium 1 gm/ Dextrose 55 ml @ 110 mls/hr Q24H IVPB 05/23/20 21:00 05/30/20 20:59 05/25/20 21:23 Clonidine HCl (Catapres Tab) 0.1 mg Q4H PRN ORAL SBP >160 05/23/20 07:45 08/21/20 07:44 05/25/20 11:59 Dextrose/ Electrolytes 1,000 ml @ 75 mls/hr [id number] IV 05/23/20 09:00 06/22/20 08:59 05/26/20 03:00 Heparin Sodium (Porcine) (Heparin 5000 units/ml) 5,000 units EVERY 12 HOURS SUBQ 05/23/20 09:00 07/07/20 08:59 05/26/20 08:20 Losartan Potassium (Cozaar) 50 mg DAILY ORAL 05/23/20 09:00 06/22/20 08:59 05/26/20 08:19 Mirtazapine (Remeron) 15 mg BEDTIME ORAL 05/23/20 21:00 08/21/20 20:59 05/25/20 21:23 Ondansetron HCl (Zofran) 4 mg Q4H PRN IVP Nausea & Vomiting 05/23/20 01:45 06/22/20 01:44 05/24/20 14:18 Brigette Schaefer M.D. May 26, 2020 14:12
--- NOTE | 2020-05-26 14:45 | NUR ---
NURSE NOTES: received order for d.c home with home health. Case management arranged home health with [facility] as indicated per MD. discharge instructions and belongings list given to the patient and pt's daughter. also given medications to the patient and advice them in how to administrate medications. IV removed prior to d/c. pt left the floor with no signs of distress or other issues at this time.
--- NOTE | 2020-05-26 15:26 | Cardiac Electrophysiology PN ---
Assessment/Plan Assessment/Plan 1. Altered mental status. Resolved. EKG is normal. Ruled out for myocardial infarction. Urine toxicology screen is negative. Echo showed EF 65%. 2. Hypertension. Continue losartan 50 mg daily. Patient is also on p.r.n. clonidine as well. 3. Urinary tract infection, on ceftriaxone per ID. 4. Homelessness DC today Subjective Subjective ECG and ECho were normal. DC in progress Objective Last 24 Hour Vital Signs Date Time Temp Pulse Resp B/P (MAP) Pulse Ox O2 Delivery O2 Flow Rate FiO2 05/26/20 12:00 97.8 68 18 143/59 (87) 98 05/26/20 09:00 Room Air 05/26/20 08:19 111/69 05/26/20 08:00 98.3 72 18 111/66 (81) 98 05/25/20 21:00 Room Air 05/25/20 20:00 98.4 78 20 139/59 (85) 97 05/25/20 16:00 98.5 78 16 118/60 (79) 99 Intake and Output 05/25/20 05/26/20 19:00 07:00 Intake Total 600 ml 450 ml Output Total 600 ml Balance 0 ml 450 ml Intake Oral 600 ml 450 ml Output Urine Total 600 ml # Voids 2 # Bowel Movements 1 Objective HEAD AND NECK: Showed no JVD. LUNGS: Clear. CARDIOVASCULAR: Shows regular S1 and S2 with no gallop or murmur. ABDOMEN: Soft. EXTREMITIES: No pitting edema. Gerardo Patel MD May 26, 2020 15:26
--- NOTE | 2020-05-26 16:11 | NUR ---
*-*DISCHARGE PLANNING*-* PATIENT HAS BEEN REFERRED TO: [facility] P: [phone] [facility], WHO STATED CANNOT SERVICE PATIENT, THEY HAVE NO COVERAGE IN THIS PATIENTS AREA.
--- NOTE | 2020-05-27 09:10 | Discharge Summary ---
Discharge Summary Discharge Summary _ DATE OF ADMISSION: 05/22/2020 DATE OF DISCHARGE: 05/26/2020 DISCHARGED BY: REASON FOR ADMISSION: 80 years old female with past medical history of hypertension , presented to emergency department with altered mental status. According to patient's niece, who came to her house earlier in the morning, she was saying things that did not make any sense. Patient was incontinent of the urine. Patient complained of some dysuria and right ear pain No reported fever or chills. No chest pain , dizziness or shortness of breath. No nausea, vomiting ,or abdominal pain. No focal weakness. Upon evaluation vital signs revealed elevated blood pressure 175/60. Laboratory work-up revealed no leukocytosis, stable hemoglobin ,hematocrit and platelet count. Urinalysis revealed +1 leukocyte esterase and borderline pyuria. Sodium 133, BUN 9, creatinine 0.8. Glucose 108. Stable LFT. Troponin negative. ECG revealed sinus rhythm, no acute ischemic changes. Urine toxicology screen was negative. Serum alcohol and salicylate levels negative. Lactic acid 1.3. Chest x-ray revealed no acute cardiopulmonary pathology. CT of the head demonstrated no acute intracranial pathology. In emergency room patient received one liter of IV fluid, otic solution and IV antibiotic for presumed UTI . Patient was admitted for further management. CONSULTANTS: sales team manager Dr. Cuevas pulmonary/critical care Dr. Irving ID specialist Dr. Davis [facility]SE: Patient admitted to medical surgical floor. Patient was on IV fluids and broad-spectrum antibiotic as per ID specialist recommendation. Blood culture were negative. No leukocytosis. Fever resolved. Patient received treatment for right ear infection and probable UTI. Upon discharge patient was switched to oral antibiotic to complete the course of treatmen for two more days. Serial troponin were negative . EKG revealed sinus rhythm, no acute sichemic changes. Patient was ruled out for myocardial infarction. Echocardiogram revealed preserved ejection fraction. Blood pressure was managed with losartan and remained stable. DVT prophylaxis provided. Supportive care provided. Patient was working with a physical therapist. Fall precaution maintained. Patient clinically stabilized, mental status was back to baseline. Patient was ready for discharge home. FINAL DIAGNOSES: Toxic metabolic encephalopathy due to dehydration and infection -resolved Right ear otitis Dysuria , probably UTI Hypertension DISCHARGE MEDICATIONS: See Medication Reconciliation list. DISCHARGE INSTRUCTIONS: Patient was discharged home with home health services to follow. Follow up with primary care provider in one week. I have been assigned to dictate discharge summary for this account. I was not involved in the patient's management. Alicia Vega NP May 27, 2020 09:10
--- NOTE | 2020-05-27 16:15 | Cardiology Report ---
APPROVED REPORT EXAM: Two-dimensional and M-mode echocardiogram with Doppler and color Doppler. INDICATION Hypertension M-Mode DIMENSIONS IVSd0.9 (0.7-1.1cm)Left Atrium (MM)2.1 (1.6-4.0cm) LVDd3.7 (3.5-5.6cm)Aortic Root3.0 (2.0-3.7cm) PWd0.9 (0.7-1.1cm)Aortic Cusp Exc.1.8 (1.5-2.0cm) IVSs1.5 cmEPSS0.3 (>1.0cm) LVDs2.4 (2.5-4.0cm) PWs1.3 cm <Conclusion> Technically difficult study due to poor parasternal acoustical windows. Normal left ventricular chamber size, systolic function and wall motion to extent visualized. Left ventricular ejection fraction estimated to be 60-65 %. Mild left ventricular hypertrophy. No evidence of pericardial effusion. All other cardiac chamber sizes are within normal limits. Focal aortic valve sclerosis with adequate cusp excursion. Thickened mitral valve leaflets with normal excursion. Mitral annulus and aortic root calcification. Pulmonic valve not well visualized. Normal tricuspid valve structure. IVC at normal size with physiologic collapse. A color flow and spectral Doppler study was performed and revealed: Mild aortic regurgitation. Trace mitral regurgitation. Mitral diastolic velocities suggest reduced left ventricular relaxation c/w mild LV diastolic dysfunction (Grade I ). Mild to moderate tricuspid regurgitation. Tricuspid systolic velocities suggests peak right ventricular systolic pressure of 37 mmHg, consistent with mild pulmonary hypertension.
--- NOTE | 2020-05-27 17:14 | Cardiology Report ---
APPROVED REPORT EKG Measurement Heart [id number] CO [id number] <Conclusion> Normal sinus rhythm Normal ECG
== END 2020-05-26 15:19 | disposition home health service (06) | DRG 640 ==
LOC: EMR 20:45 → 2E 21:23 → EDBEDREQ 21:46 → 3E 05-23 18:21
DX: E86.0 Dehydration (principal); G92 Toxic encephalopathy; N39.0 Urinary tract infection, site not specified; I10 Essential (primary) hypertension; H60.91 Unspecified otitis externa, right ear; Z59.0 Homelessness
CPT/HCPCS: 36415; 70450; 71045; 80048; 80053; 80307; 81003; 82550; 83605; 83735; 84100; 84439; 84443; 84484; 85025; 87040; 93005; 93306; 96365; 99285; G0480; J2405; J7030

== ENCOUNTER → 2020-08-13 | Emergency (ER) | payer MEDICARE, MEDICAID ==
[~2020-08-13] VITALS: Ht 152.4 cm; Wt 63.5 kg
[~2020-08-13] MED LIST: ALPRAZOLAM0.25 M2 ORAL; ASPIRIN81 MG ORAL; AUGMENTIN 875-1 EAC1 ORAL; LOSARTAN POTASS50 MG ORAL; ONDANSETRON ODT4 MG BC; REMERON15 MG ORAL; TYLENOL EXTRA500 MG ORAL; ZITHROMAX250 MG ORAL
[2020-08-13 12:21] VITALS: BP 142/66
--- NOTE | 2020-08-13 12:21 | NUR ---
ED Nurse Note: Patient walked in to ED from home c/o nausea and vomiting x 2 weeks. Denies abdominal pain/ CP. AAOx4, verbally responsive. No SOB, on room air. Afebrile. Pt placed on enterprise solutions architect. ERMD at bedside.
--- NOTE | 2020-08-13 13:08 | Emergency Room Report ---
History of Present Illness General Chief Complaint: Vomiting Source: Family Member Present Illness HPI 80-year-old female with past medical history of hypertension presents to the emergency department with 2 weeks on and off with associated nausea and epigastric abdominal pain Denies chest pain, shortness of breath, diarrhea, melena, hematochezia, hematuria, dysuria, flank pain, fever, cough or any other symptoms. The patient's symptoms were gradual onset, severity was moderate, duration since 14 days. Quality: Nonbloody Past medical history: HTN Past surgical history: Denies Smoking: Denies Alcohol use: Denies Drug use: Denies Review of systems: CONST: No fevers or chills, No night sweats PULMONARY: No productive cough, No shortness of breath CARDIAC: No chest pain, No palpitations GI: ++Nausea and vomiting. No vomiting, No diarrhea , No melena_or_BRBPR : No dysuria, No hematuria, No discharge NEURO: No new_focal_weakness_or_numbness, No confusion, No vision changes 14 point Review of Systems is otherwise negative except per HPI Physical Exam: GENERAL: Awake_alert_ nontoxic, no acute distress Spo2 97% on RA -normal. Hard of hearing. EYES: Extraocular muscles are intact. Conjunctivae clear. Lids without swelling ENT: External nose and ear normal_in_appearance. Oropharynx clear. Head_atraumatic, Moist_oral_mucosa NECK: No JVD. No meningismus. No thyromegaly. Supple. Trachea midline RESP: Normal respiratory effort. Symmetric rise. No stridor. Clear_to_auscultation_No_rales_No_wheezes CARDIAC: Regular rate and regular rhytm. No_significant pedal edema. ABDOMEN: Soft. Nondistended. Nontender_No_rebound_or_guarding. No CVA tenderness to palpation. Negative Avila's. Negative Rovsing no pulsatile abdominal mass MSK: Normal muscle tone, without rigidity. Extremities without asymmetric deformity or swelling. SKIN: Warm and dry. No visible cyanosis or pallor NEUROLOGIC: Alert, oriented x3. Motor_and_sensation_grossly_intact. No truncal ataxia. Gait_normal Psych: Normal mood and affect, normal judgment and insight - COORDINATION OF CARE Case was discussed with: Patient Any labs and imaging that were ordered were interpreted as part of the medical decision making: Medical Decision Making/Plan: Differential diagnosis includes cholecystitis, choledocholithiasis, hepatitis, small bowel obstruction, volvulus, AAA, pancreatitis, atypical appendicitis, gastroparesis, gastritis, peptic ulcer disease, among others. Patient is well appearing with stable vital signs. Abdominal exam is non peritoneal with no guarding or rebound. Labs show no acute abnormalities. Troponin negative x1. EKG shows no acute ischemia. CT incidentally was concerning for coronavirus. No acute surgical abdomen. The patient denies any bloody stool and has no pain out of proportion to exam, and no significant risk factors for mesenteric ischemia such as atrial fibrillation or severe PAD/PVD (peripheral arterial / vascular disease), thus definitive workup to rule out mesenteric ischemia was not pursued. Patient is afebrile, without any significant tenderness in the RUQ, and a negative Percival sign. The patients presentation does not appear to be consistent with acute cholecystitis and thus definitive imaging to rule it out was not pursued. The patients symptoms are not consistent with ACS (acute coronary syndrome), symptoms are not exertional, EKG without obvious ischemic change. Patient is able to tolerate p.o. upon discharge. The patient was nontoxic with benign vital signs. They did not meet admission criteria and was stable for outpatient therapy, under the current guideline. The patient was instructed to be home quarantined, and appropriate precautions were given. The patient was educated and instructed to notify a healthcare professional if they develop difficulty breathing, chest pain, palpitations, fever or other concerning symptoms. These instructions were given to the patient in both verbal and written forms. The patient was given an opportunity to ask questions. The patient was discharged with written instructions for COVID-19, including strict ED return precautions. Allergies: Coded Allergies: No Known Allergies (Unverified , 05/22/20) COVID-19 Screening Contact w/high risk pt: No Experienced COVID-19 symptoms?: Yes COVID-19 Testing performed AMBULANCE ASSISTANT: No Nursing Documentation-PM Past Medical History: No History, Except For Hx Hypertension: Yes Physical Exam Vital Signs Date Time Temp Pulse Resp B/P (MAP) Pulse Ox O2 Delivery O2 Flow Rate FiO2 08/13/20 12:19 98.2 76 18 142/66 (91) 96 Room Air Sp02 EP Interpretation: reviewed, normal Medical Decision Making Diagnostic Impression: Primary Impression: Abdominal pain Additional Impressions: Suspected 2019-nCoV infection Diverticulosis EKG Diagnostic Results When was troponin ordered?: Aug 13, 2020 ZACHARY Collins Text 12-lead EKG (interpreted by me) Time: 1314 Indication: Rhythm analysis Tracing visualized and Interpreted by me. Rhythm: Normal sinus rhythm Rate: 71 bpm QTc: 467 Morphology: No_significant_ST_elevations_or_depressions, No STEMI Impression: Normal_sinus_rhythm_without_significant_abnormality. Ectopy Rhythm Strip Diag. Results Rhythm Strip Time: 13:28 EP Interpretation: yes Rate: 70 Rhythm: NSR, no PVC's, no ectopy CT/MRI/US Diagnostic Results CT/MRI/US Diagnostic Results : Impression CT Abdomen Pelvis WO Contrast Indication: Nausea with epigastric abdominal pain on off for 2 weeks Lack of IV contrast limits assessment of the solid organs. The liver, gallbladder, bile ducts, pancreas, spleen, adrenals are unremarkable. The kidneys demonstrate prominent extrarenal pelvises bilaterally, are otherwise unremarkable. The bladder is mildly distended. No pelvic mass or adenopathy. No retroperitoneal or mesenteric mass or adenopathy. The included lung bases demonstrate patchy areas of groundglass opacity and denser consolidation in the periphery of both lungs. The heart size is normal. The bones demonstrate degenerative spondylosis changes Impression: Bilateral basilar patchy groundglass opacities and denser consolidation, concerning for multifocal pneumonia, quite possibly viral Limited assessment of the GI tract, due to lack of enteric contrast administration No definite acute abdominal or pelvic process Colonic diverticulosis. No evidence of diverticulitis. Sigmoid colon circular muscle hypertrophy presumably related to such Reevaluation Time: 13:29 Last Vital Signs Date Time Temp Pulse Resp B/P (MAP) Pulse Ox O2 Delivery O2 Flow Rate FiO2 08/13/20 12:21 76 18 Room Air 08/13/20 12:21 98.2 142/66 96 Status: improved Disposition: HOME, SELF-CARE Admit Decision Time: 13:29 Condition: Stable Scripts Acetaminophen* (TYLENOL EXTRA STRENGTH*) 500 Mg Tablet 500 MG ORAL Q8H PRN for Prn Headache/Temp > 101, #30 TAB 0 Refills Prov: Ivette Burgess.Helen 08/13/20 Azithromycin* (ZITHROMAX*) 250 Mg Tablet 250 MG ORAL DAILY, #6 TAB 0 Refills Take two tables once daily for 1 day, then one tablet once daily for 4 days. Prov: Ivette Burgess D.O. 08/13/20 Ondansetron Odt* (ZOFRAN ODT*) 4 Mg Tab.rapdis 4 MG BC EVERY 8 HOURS, #10 TAB 0 Refills Prov: BurgessRoland parkerIvettedanita Buckner 08/13/20 Patient Instructions: Abdominal Pain, Adult, [id number], Nausea and Vomiting, Adult Additional Instructions: Instructions for patient/account installation specialist: Follow up with your physician in 1-2 days. Eat more fiber. Stay hydrated. Follow-up with your doctor sooner if your condition requires a more timely clinical reevaluation. Return to the emergency department immediately if you feel that your condition is worsening or if you have any new or concerning symptoms. Review your discharge instructions and take any prescriptions given as instructed. [facility] PROVIDES FREE OR LOW-COST HEALTH SERVICES TO PEOPLE WHO CAN SHOW PROOF THAT THEY LIVE IN [facility]. TO FIND MORE CLINICS PARTNERED WITH [facility] TO PROVIDE SERVICE, PLEASE CALL . Your evaluation suggests that you are suffering from a viral infection producing a viral syndrome. You can sign up for testing with [facility] at the following website as discussed [email or web address] Symptoms of a viral syndrome may include fever, sore throat, headache, body aches and pains, generalized weakness and fatigue, and runny nose. You do not show signs or symptoms suggestive of a serious or life threatening illness. This illness may be caused by a number of different viruses, including Influenza A or B or COVID-19. These viruses are highly contagious and spread rapidly from person to person via coughing and sneezing of the virus or by contaminated surface contact with nasal or other respiratory secretions. These viruses cause a similar combination of signs and symptoms which are typically much more severe than the common cold. Typically they begin with the rapid onset of fever, often high (over 102), body aches, fatigue, headache, and usually upper respiratory tract infections symptoms such as cough, runny nose, and sore throat. The illness typically lasts 7-10 days, with the fever and feelings of weakness and body aches usually lasting 3-5 days. Your own immune system fights off these infections. Only rarely do secondary bacterial infections occur (such as bacterial pneumonia) and can be serious. At this time your symptoms do not appear serious, however, there are limitations to online visits and if you are not improving you may need to be evaluated by a doctor in person and that doctor may need to do additional tests. INSTRUCTIONS: Illnesses such as yours typically resolve on their own with time however you must remember to stay hydrated and drink 2-3 times your normal fluid intake, as fever and your increased metabolism in fighting the infection uses more water. Fever control is important to help you feel better and to help prevent dehydration. Acetaminophen is an excellent choice for fever control and other symptoms (as long as you are not allergic to the medication). Rest is also important in helping your body fight this infection. Over the counter cough and decongestant medications are safe (as long as you dont have uncontrolled high blood pressure) and may help the cough and congestion slightly. As these viruses are highly contagious, good hand washing habits, and covering your cough and sneeze help prevent spread. Fever can be a sign of a serious infection and it is imperative that you go directly to an Emergency Department for serious symptoms such as weakness, confusion, significant shortness of breath, abdominal pain, or severe headache. Close follow up with a physician is important if you are not improving over the next few days or you experience worsening of your symptoms. Although it is impossible to know at this point if you have COVID-19 (the Gould virus), please quarantine yourself and anyone else that is residing with you for the longer of the following time periods: 14 days OR 3 days after the last of your symptoms has resolved CONTACT THE DOCTOR RIGHT AWAY if you develop worsening symptoms such as shortness of breath, chest pain, neck stiffness, confusion or any other new, worsening, or concerning symptoms. For emergencies contact 911 immediately. Ivette Burgess D.O. Aug 13, 2020 13:08
--- NOTE | 2020-08-13 13:15 | NUR ---
ED Nurse Note: IV line established. Blood and urine sent to lab.
--- NOTE | 2020-08-13 13:18 | NUR ---
ED Nurse Note: Pt was taken to CT via gurkaren by a tech.
[2020-08-13 13:27] LABS: APPEARANCE,URINE CLEAR; BILIRUBIN, URINE NEGATIVE (NEGATIVE); COLOR,URINE PALE YELLOW; GLUCOSE, URINE (UA) NEGATIVE (NEGATIVE); KETONES,URINE NEGATIVE (NEGATIVE); LEUKOCYTE ESTERASE ,URINE 1+ (NEGATIVE); NITRITE,URINE NEGATIVE (NEGATIVE); PH,URINE 8 (4.5-8.0); PROTEIN,URINE NEGATIVE (NEGATIVE); UROBILINOGEN,URINE NORMAL MG/DL (0.0-1.0)
[2020-08-13 13:31] LABS: BASOPHILS % (AUTO) 0.6 % (0.0-2.0); EOSINOPHILS % (AUTO) 1.4 % (0.0-3.0); HEMATOCRIT 38.3 % (37.0-47.0); HEMOGLOBIN 13.1 G/DL (12.0-16.0); LYMPHOCYTES % (AUTO) 14.5 % (20.0-45.0); MEAN CORPUSCULAR VOLUME 84 FL (80-99); MONOCYTES % (AUTO) 7.3 % (1.0-10.0); NEUTROPHILS % (AUTO) 76.2 % (45.0-75.0); PLATELET COUNT 474 K/UL (150-450); RED BLOOD COUNT 4.57 M/UL (4.20-5.40); RED CELL DISTRIBUTION WIDTH 13.2 % (11.6-14.8); WHITE BLOOD COUNT 7.8 K/UL (4.8-10.8)
[2020-08-13 13:42] LABS: ANION GAP 6 mmol/L (5-15); BLOOD UREA NITROGEN 8 mg/dL (7-18); CALCIUM 8.5 MG/DL (8.5-10.1); CARBON DIOXIDE 29 MMOL/L (21-32); CHLORIDE 96 MMOL/L (98-107); CREATININE 0.8 MG/DL (0.55-1.30); POTASSIUM 4.1 MMOL/L (3.5-5.1); SODIUM 131 MMOL/L (136-145)
[2020-08-13 13:46] LABS: ALANINE AMINOTRANSFERASE 28 U/L (12-78); ALBUMIN 3.4 G/DL (3.4-5.0); ALBUMIN/GLOBULIN RATIO 0.8 (1.0-2.7); ALKALINE PHOSPHATASE 53 U/L (46-116); ASPARTATE AMINO TRANSFERASE 24 U/L (15-37); BILIRUBIN,TOTAL 0.7 MG/DL (0.2-1.0)
--- NOTE | 2020-08-13 14:20 | Diagnostic Imaging Report ---
Indication: Nausea with epigastric abdominal pain on off for 2 weeks Technique: Spiral acquisitions obtained through the abdomen and pelvis. No oral contrast utilized, per emergency room physician request No IV contrast utilized, per referring physician request.. Multiplanar reconstructions were generated. Total dose length product 217 mGycm. CTDIvol(s) for mGy. Dose reduction achieved using automated exposure control Comparison: None Findings: Lack of enteric contrast limits assessment of the GI tract. The appendix is normal. There are colonic diverticula. No evidence of acute diverticulitis. There is some circular muscle hypertrophy of the distal sigmoid colon. No small bowel distention. There is a small sliding-type hiatal hernia. The stomach and duodenum are unremarkable. Lack of IV contrast limits assessment of the solid organs. The liver, gallbladder, bile ducts, pancreas, spleen, adrenals are unremarkable. The kidneys demonstrate prominent extrarenal pelvises bilaterally, are otherwise unremarkable. The bladder is mildly distended. No pelvic mass or adenopathy. No retroperitoneal or mesenteric mass or adenopathy. The included lung bases demonstrate patchy areas of groundglass opacity and denser consolidation in the periphery of both lungs. The heart size is normal. The bones demonstrate degenerative spondylosis changes Impression: Bilateral basilar patchy groundglass opacities and denser consolidation, concerning for multifocal pneumonia, quite possibly viral Limited assessment of the GI tract, due to lack of enteric contrast administration No definite acute abdominal or pelvic process Colonic diverticulosis. No evidence of diverticulitis. Sigmoid colon circular muscle hypertrophy presumably related to such The CT scanner at [facility] is accredited by the [employer] and the scans are performed using protocols designed to limit radiation exposure to as low as reasonably achievable to attain images of sufficient resolution adequate for diagnostic evaluation.
--- NOTE | 2020-08-13 14:46 | Diagnostic Imaging Report ---
Indication: Chest pain Technique: One view of the chest Comparison: 05/22/2020 Findings: There are peripheral infiltrates on the right. The pleural spaces are clear. The heart size is normal. Impression: Right lung peripheral infiltrates, likely pneumonia
[2020-08-13 15:13] VITALS: BP 135/77
--- NOTE | 2020-08-13 15:13 | NUR ---
ED Nurse Note: Pt cleared by ERMD for discharge. DC instructions/prescription was given and explained to pt and verbalized understanding of teachings. All medical deviecs such as ID band and IV line removed. Pt is AAO x4, ambulatory and left with all personal belongings.
== END | disposition home or self-care (01) ==
LOC: EMR 13:33
DX: R10.11 Right upper quadrant pain (principal); K57.90 Diverticulosis of intestine, part unspecified, without perforation or abscess without bleeding; I10 Essential (primary) hypertension
CPT/HCPCS: 36415; 71045; 74176; 80053; 81003; 83690; 84484; 85025; 93005; 96361; 96374; 99284; J2405; U0004

== ENCOUNTER 2020-08-16 14:02 | Inpatient (IN) | payer MEDICARE, MEDICAID ==
[~2020-08-16] VITALS: Ht 154.9 cm; Wt 63.5 kg
[~2020-08-16 14:02] MED LIST changes: -ASPIRIN81 MG ORAL
[2020-08-16 14:16] VITALS: BP 153/61
[2020-08-16] MEDS ORDERED: ASPIRIN81 MG ORAL (14:38)
[2020-08-16 14:39] LABS: BASOPHILS % (AUTO) 0.8 % (0.0-2.0); EOSINOPHILS % (AUTO) 0.8 % (0.0-3.0); HEMATOCRIT 37.8 % (37.0-47.0); HEMOGLOBIN 13.5 G/DL (12.0-16.0); LYMPHOCYTES % (AUTO) 17.3 % (20.0-45.0); MEAN CORPUSCULAR VOLUME 82 FL (80-99); NEUTROPHILS % (AUTO) 73.2 % (45.0-75.0); PLATELET COUNT 473 K/UL (150-450); RED BLOOD COUNT 4.64 M/UL (4.20-5.40); RED CELL DISTRIBUTION WIDTH 12.8 % (11.6-14.8); WHITE BLOOD COUNT 8.2 K/UL (4.8-10.8)
[2020-08-16 14:43] LABS: APPEARANCE,URINE CLEAR; BILIRUBIN, URINE NEGATIVE (NEGATIVE); COLOR,URINE PALE YELLOW; GLUCOSE, URINE (UA) NEGATIVE (NEGATIVE); KETONES,URINE NEGATIVE (NEGATIVE); LEUKOCYTE ESTERASE ,URINE NEGATIVE (NEGATIVE); NITRITE,URINE NEGATIVE (NEGATIVE); PH,URINE 8 (4.5-8.0); PROTEIN,URINE NEGATIVE (NEGATIVE); UROBILINOGEN,URINE NORMAL MG/DL (0.0-1.0)
[2020-08-16] MEDS ORDERED: Omnipaque 350 100ml vial INJ PRN (14:45)
[2020-08-16 14:51] LABS: ANION GAP 10 mmol/L (5-15); BLOOD UREA NITROGEN 8 mg/dL (7-18); CALCIUM 8.6 MG/DL (8.5-10.1); CARBON DIOXIDE 23 MMOL/L (21-32); CHLORIDE 95 MMOL/L (98-107); POTASSIUM 4.1 MMOL/L (3.5-5.1); SODIUM 127 MMOL/L (136-145)
--- NOTE | 2020-08-16 14:54 | Emergency Room Report ---
History of Present Illness General Chief Complaint: Flu Like Symptoms Source: Patient Present Illness HPI 80-year-old female with past medical history of schizophrenia and recent COVID positive diagnosis on 08/13/2020 presenting with family for lethargy, fatigue, and shortness of breath. She is predominantly complaining of GI symptoms including vomiting, diarrhea, and decreased appetite. Denies chest pain, hemoptysis, rash, headache, neck pain, photophobia, recent travel or any other symptoms. The patient's symptoms were gradual onset, severity was moderate, duration since several days. Quality: Generally weak. Past medical history: Schizophrenia, previous UTI Past surgical history: Denies Smoking: Denies Alcohol use: Denies Drug use: Denies Review of systems: CONST: ++ fevers; ++ chills, No night sweats PULMONARY: No productive cough, positive shortness of breath CARDIAC: No chest pain, No palpitations GI: Positive vomiting, positive diarrhea , No melena_or_BRBPR : No dysuria, No hematuria, No discharge NEURO: No new_focal_weakness_or_numbness, No confusion, No vision changes 14 point Review of Systems is otherwise negative except per HPI Physical Exam: GENERAL: Awake_alert_ nontoxic, no acute distress Spo2 95% on RA -normal EYES: Extraocular muscles are intact. Conjunctivae clear. Lids without swelling ENT: External nose and ear normal_in_appearance. Oropharynx clear. Head_atraumatic, dry _oral_mucosa NECK: No JVD. No meningismus. No thyromegaly. Supple. Trachea midline RESP: mildly increased al respiratory effort. Symmetric rise. No stridor. Clear_to_auscultation_No_rales_No_wheezes CARDIAC: Regular rate and regular rhytm. No_significant pedal edema. ABDOMEN: Soft. Nondistended. Nontender_No_rebound_or_guarding. MSK: Normal muscle tone, without rigidity. Extremities without asymmetric deformity or swelling. SKIN: Warm and dry. No visible cyanosis or pallor. No petechiae NEUROLOGIC: Alert, oriented x3. Motor_and_sensation_grossly_intact. No truncal ataxia. Gait_normal Psych: Normal mood and affect, normal judgment and insight - COORDINATION OF CARE Case was discussed with: Patient , Patient's Family Any labs and imaging that were ordered were interpreted as part of the medical decision making: Medical Decision Making/Plan: Differential includes COVID-19, pneumonia, bronchitis, CHF, pulmonary edema, pulmonary embolism, pleural effusion among others. Patient is generally weak appearing. No focal deficits. Afebrile. No nuchal rigidity. No petechiae. She has mildly increased work of breathing. CXR shows groundglass opacification consistent with COVID-19. Seems to be consistent with pneumonia, rather than CHF. Labs show lactate elevation of 2.1. Patient is also hyponatremic at 127. Troponin negative. BNP mildly elevated at 217. No signs of right heart strain. CTA is negative for PE. Labs reviewed form previous ED visit. Patient had +COVID. CT abd/pelvis was negative for acute surgical abnormality. Also incidentally showed GGO. Presentation not consistent with ischemia / ACS. EKG shows NSR with RVH and ST changes in lead V1-V6; I, and aVL. Based on the patients PSI/PORT score, has high enough mortality risk that inpatient admission for IV antibiotics and clinical observation is most appropriate. Patient given Ceftriaxone / Azithromycin; decadron. 1653: I spoke with Dr. Basilio, and reviewed the patients presentation, workup, results, and treatment. They will admit the patient for further care and evaluation, and assume care of the patient at this time. I called patient's son to inform him of his mother's clinical condition and diagnosis. He agrees with admission at this time. All questions were answered. - CRITICAL CARE TIME - I spent 35 minutes of critical care time. This time excludes any separately billable procedures. Organ systems at risk include: Pulmonary / respiratory Treatments/Evaluations: Emergent and rapid respiratory assessment and management with continuous monitoring. Advanced airway equipment at the ready, while the patient's respiratory symptoms were stabilized. Organ systems at risk for failure without immediate intervention include pulmonary / respiratory. This time was spent reviewing the patients records, reviewing vital signs, reassessing the patients clinical status, discussing the case and care with staff and consultants, and performing high-complexity medical decision making. 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 [place] Nursing Documentation-PMH Hx Hypertension: Yes Physical Exam Vital Signs Date Time Temp Pulse Resp B/P (MAP) Pulse Ox O2 Delivery O2 Flow Rate FiO2 08/16/20 14:06 97.3 57 19 153/61 (91) 100 Room Air Sp02 EP Interpretation: reviewed, normal Medical Decision Making Diagnostic Impression: Primary Impression: COVID-19 Additional Impressions: Hyponatremia Generalized weakness Abnormal EKG Vomiting Abdominal pain EKG Diagnostic Results ZACHARY Scribe Ciro 12-lead EKG (interpreted by ) Time: 1419 Indication: Rhythm analysis Tracing visualized and Interpreted by me. Rhythm: Normal sinus rhythm Rate: 74 bpm QTc: 479 Morphology: No_significant_ST_elevations_or_depressions, No STEMI Impression: NSR, RVH, ST depressions V1-V6, I and aVL Rhythm Strip Diag. Results Rhythm Strip Time: 14:53 EP Interpretation: yes Rhythm: NSR, no PVC's, no ectopy Chest X-Ray Diagnostic Results Chest X-Ray Diagnostic Results : ZACHARY Veeibe Ciro Chest X-Ray: Views: 1 view(s) Indication: COUGH Findings: Normal heart size. Mediastinum normal. Impression: GGO 2/2 COVID The X-ray(s) were independently viewed and interpreted contemporaneously Electronically signed by Ivette burciaga DO CT/MRI/US Diagnostic Results CT/MRI/US Diagnostic Results : Impression CT Angiography Chest With Intravenous Contrast FINDINGS: Pulmonary arteries: No central or large pulmonary embolus identified. Evaluation of the pulmonary arterial branches is limited by motion artifact. Aorta: Atherosclerotic changes of the aorta. No thoracic aortic aneurysm. Lungs: Patchy ground-glass opacities and densities bilaterally, compatible with Covid 19 infection. Small calcified granuloma in the right upper lobe. Pleural space: Unremarkable. No significant effusion. No pneumothorax. Heart: Unremarkable. No cardiomegaly. No significant pericardial effusion. No evidence of RV dysfunction. Mediastinum: Small hiatal hernia. Thyroid: Heterogeneous right thyroid lobe with calcifications. This could be further evaluated with nonemergent dedicated ultrasound if clinically indicated. Bones/joints: No acute fracture. No dislocation. Soft tissues: Unremarkable. Lymph nodes: Unremarkable. No enlarged lymph nodes. IMPRESSION: 1. No central or large pulmonary embolus identified. Evaluation of the pulmonary arterial branches is limited by motion artifact. 2. No aortic aneurysm or dissection. 3. Patchy ground-glass opacities and densities bilaterally, compatible with Covid 19 infection. Dictated By: Brielle Vega MD Reevaluation Time: 14:54 Last Vital Signs Date Time Temp Pulse Resp B/P (MAP) Pulse Ox O2 Delivery O2 Flow Rate FiO2 08/16/20 14:16 97.3 57 19 153/61 100 Room Air Status: improved Disposition: ADMITTED INPATIENT Admit Decision Time: 14:54 Condition: Stable Referrals: [facility],REFERRING (PCP) Ivette Burgess D.O. Aug 16, 2020 14:54
[2020-08-16] MEDS ORDERED: cefTRIAXone 1 GM in NS 55 ML IVPB ONE (15:00)
[2020-08-16] MEDS ORDERED: Azithromycin 500 MG in NS 275 ML IVPB ONE (15:00)
[2020-08-16] MEDS ORDERED: dexAMETHasone 10mg/ml Inj IV ONE (15:00)
[2020-08-16 15:03] LABS: ALANINE AMINOTRANSFERASE 33 U/L (12-78); ALBUMIN 3.4 G/DL (3.4-5.0); ALBUMIN/GLOBULIN RATIO 0.9 (1.0-2.7); ALKALINE PHOSPHATASE 64 U/L (46-116); ASPARTATE AMINO TRANSFERASE 26 U/L (15-37); BILIRUBIN,TOTAL 0.7 MG/DL (0.2-1.0); CREATINE KINASE 119 U/L (26-308); PHOSPHORUS 2.2 MG/DL (2.5-4.9)
[2020-08-16 15:14] LABS: FERRITIN 289 NG/ML (8-388); LACTATE DEHYDROGENASE 270 U/L (81-234)
--- NOTE | 2020-08-16 16:04 | Diagnostic Imaging Report ---
EXAM: XR Chest, 1 View CLINICAL HISTORY: COUGH TECHNIQUE: Frontal view of the chest. COMPARISON: Chest radiograph on 08/13/2020 FINDINGS: Hardware: None. Lungs/pleura: Diffuse interstitial opacities, similar to slightly increased compared to prior exam. No pleural effusion or pneumothorax. Heart/mediastinum: Mild enlargement of the cardiac silhouette. Atherosclerotic calcifications of the aorta. Soft tissues: Unremarkable. Bones: No acute fracture. Degenerative changes of the spine. Upper abdomen: Normal. IMPRESSION: Diffuse interstitial opacities, similar to slightly increased compared to prior exam, concerning for an infectious/inflammatory process.
[2020-08-16 16:15] VITALS: BP 148/77
--- NOTE | 2020-08-16 16:28 | Diagnostic Imaging Report ---
EXAM: CT Angiography Chest With Intravenous Contrast CLINICAL HISTORY: PE TECHNIQUE: Axial computed tomographic angiography images of the chest with intravenous contrast. CTDI is 38.7 mGy and DLP is 113.6 mGy-cm. One or more of the following dose reduction techniques were used: automated exposure control, adjustment of the mA and/or kV according to patient size, use of iterative reconstruction technique. MIP reconstructed images were created and reviewed. COMPARISON: Chest radiograph on 08/16/2020 FINDINGS: Pulmonary arteries: No central or large pulmonary embolus identified. Evaluation of the pulmonary arterial branches is limited by motion artifact. Aorta: Atherosclerotic changes of the aorta. No thoracic aortic aneurysm. Lungs: Patchy ground-glass opacities and densities bilaterally, compatible with Covid 19 infection. Small calcified granuloma in the right upper lobe. Pleural space: Unremarkable. No significant effusion. No pneumothorax. Heart: Unremarkable. No cardiomegaly. No significant pericardial effusion. No evidence of RV dysfunction. Mediastinum: Small hiatal hernia. Thyroid: Heterogeneous right thyroid lobe with calcifications. This could be further evaluated with nonemergent dedicated ultrasound if clinically indicated. Bones/joints: No acute fracture. No dislocation. Soft tissues: Unremarkable. Lymph nodes: Unremarkable. No enlarged lymph nodes. IMPRESSION: 1. No central or large pulmonary embolus identified. Evaluation of the pulmonary arterial branches is limited by motion artifact. 2. No aortic aneurysm or dissection. 3. Patchy ground-glass opacities and densities bilaterally, compatible with Covid 19 infection.
[2020-08-16 18:10] VITALS: BP 139/61
[2020-08-16] MEDS ORDERED: DiphenhydrAMINE 50mg/ml Inj ONE (20:06)
[2020-08-16] MEDS ORDERED: DiphenhydrAMINE 50mg/ml Inj IVP ONE (20:15)
[2020-08-16 20:20] VITALS: BP 119/63
[2020-08-16] MEDS ORDERED: Miralax 17gm pkt ORAL PRN (22:00)
[2020-08-16] MEDS ORDERED: cefTRIAXone 1 GM in D5W 55 ML IVPB SCH (22:00)
[2020-08-16] MEDS ORDERED: Promethazine/Codeine 5ml UD ORAL PRN (22:00)
[2020-08-16] MEDS ORDERED: Azithromycin 250 MG in D5W 275 ML IV SCH (22:00)
[2020-08-16] MEDS ORDERED: Albuterol/Ipratropium 3ml neb HHN PRN (22:00)
--- NOTE | 2020-08-16 22:02 | History & Physical ---
History and Physical History & Physicial Lorenzo Basilio MD Aug 16, 2020 22:02
[2020-08-16 23:20] VITALS: BP 110/65
[2020-08-17] VITALS (9 sets, daily range): BP systolic 109–133; BP diastolic 45–72
[2020-08-17 04:36] LABS: BASOPHILS % (AUTO) 0.2 % (0.0-2.0); HEMOGLOBIN 12.4 G/DL (12.0-16.0); LYMPHOCYTES % (AUTO) 11.5 % (20.0-45.0); MEAN CORPUSCULAR VOLUME 80 FL (80-99); MONOCYTES % (AUTO) 4.2 % (1.0-10.0); NEUTROPHILS % (AUTO) 84.1 % (45.0-75.0); PLATELET COUNT 438 K/UL (150-450); RED BLOOD COUNT 4.11 M/UL (4.20-5.40); RED CELL DISTRIBUTION WIDTH 13.5 % (11.6-14.8); WHITE BLOOD COUNT 4.4 K/UL (4.8-10.8)
[2020-08-17 04:58] LABS: ALBUMIN 3.1 G/DL (3.4-5.0); ANION GAP 8 mmol/L (5-15); BLOOD UREA NITROGEN 11 mg/dL (7-18); CALCIUM 8.3 MG/DL (8.5-10.1); CARBON DIOXIDE 23 MMOL/L (21-32); CHLORIDE 102 MMOL/L (98-107); CREATININE 0.9 MG/DL (0.55-1.30); PHOSPHORUS 4.9 MG/DL (2.5-4.9); POTASSIUM 4.1 MMOL/L (3.5-5.1); SODIUM 133 MMOL/L (136-145)
[2020-08-17] MEDS ORDERED: Losartan 50mg tab ORAL SCH (09:00)
[2020-08-17] MEDS ORDERED: Losartan 25mg tab ONE (09:46)
[2020-08-17] MEDS: Aspirin Baby 81mg ORAL SCH (09:50)
[2020-08-17] MEDS: Heparin 5000 units/ml inj SUBQ SCH ×2 (09:51→21:03)
[2020-08-17] MEDS ORDERED: LORazepam 0.5mg tab ONE (11:43)
[2020-08-17] MEDS ORDERED: LORazepam 0.5mg tab ORAL ONE (11:45)
--- NOTE | 2020-08-17 14:12 | Consultation ---
History of Present Illness General Date patient seen: Aug 18, 2020 Chief Complaint: Flu Like Symptoms Present Illness HPI 80-year-old female with past medical history of schizophrenia and recent COVID positive diagnosis on 08/13/2020 presented to ER with CC of lethargy, fatigue, and shortness of breath. vomiting, diarrhea, and decreased appetite. Denies chest pain, hemoptysis, rash, headache, neck pain, photophobia, recent travel or any other symptoms. The patient's symptoms were gradual onset, severity was moderate, duration since several days. She had a CXR in ER showing bilateral interstitial pneumonia c/w COVID pneumonia, she is admitted for further treatment. Allergies: Coded Allergies: No Known Allergies (Unverified , 05/22/20) Medication History Scheduled Alprazolam (Alprazolam), 0.25 MG ORAL TID, (Reported) Amoxicillin/Potassium Clav 875-125* (Augmentin 875-125 Tablet*), 1 TAB ORAL TWICE A DAY Aspirin* (Aspirin*), 81 MG ORAL DAILY, (Reported) Azithromycin* (Zithromax*), 250 MG ORAL DAILY Losartan Potassium* (Losartan Potassium*), 50 MG ORAL DAILY, (Reported) Mirtazapine* (Remeron*), 15 MG ORAL BEDTIME, (Reported) Ondansetron Odt* (Zofran Odt*), 4 MG BC EVERY 8 HOURS Scheduled PRN Acetaminophen* (Tylenol Extra Strength*), 500 MG ORAL Q8H PRN for Prn Headache/Temp > 101 Patient History Healthcare decision maker Resuscitation status Advanced Directive on File Past Medical/Surgical History Past Medical/Surgical History: (1) History of depression (2) Diverticulosis (3) History of hypertension Review of Systems All Other Systems: negative except mentioned in HPI Physical Exam General Appearance: WD/WN, no apparent distress Lines, tubes and drains: peripheral HEENT: normocephalic, atraumatic Neck: non-tender, normal alignment Respiratory/Chest: chest wall non-tender, lungs clear Breasts: no masses Abdomen: normal bowel sounds, non tender Genitourinary/Rectal: normal genital exam Last 24 Hour Vital Signs Date Time Temp Pulse Resp B/P (MAP) Pulse Ox O2 Delivery O2 Flow Rate FiO2 08/17/20 12:18 72 15 125/45 99 Room Air 08/17/20 10:21 98.6 75 13 124/66 100 Room Air 08/17/20 09:51 110/57 08/17/20 07:05 98.4 71 18 110/57 100 Room Air 08/17/20 05:15 98.4 65 16 112/69 99 Room Air 08/17/20 03:43 98.4 75 16 125/72 99 Room Air 08/17/20 01:50 98.4 62 16 109/62 99 Room Air 08/16/20 23:20 98.4 76 16 110/65 99 Room Air 08/16/20 20:20 98.4 77 15 119/63 99 Room Air 08/16/20 18:10 98.4 75 18 139/61 100 Room Air 08/16/20 16:15 97.8 65 16 148/77 99 Room Air 08/16/20 14:16 97.3 57 19 153/61 100 Room Air 08/16/20 14:16 57 19 Room Air Intake and Output 08/16/20 08/17/20 19:00 07:00 Intake Total 1330 ml Output Total 100 ml Balance 1230 ml Intake IV Total 1330 ml Output Urine Total 100 ml Laboratory Tests Test 08/16/20 14:10 08/16/20 16:15 08/17/20 04:00 White Blood Count 8.2 K/UL (4.8-10.8) 4.4 K/UL (4.8-10.8) L Red Blood Count 4.64 M/UL (4.20-5.40) 4.11 M/UL (4.20-5.40) L Hemoglobin 13.5 G/DL (12.0-16.0) 12.4 G/DL (12.0-16.0) Hematocrit 37.8 % (37.0-47.0) 33.0 % (37.0-47.0) L Mean Corpuscular Volume 82 FL (80-99) 80 FL (80-99) Mean Corpuscular Hemoglobin 29.0 PG (27.0-31.0) 30.2 PG (27.0-31.0) Mean Corpuscular Hemoglobin Concent 35.6 G/DL (32.0-36.0) 37.7 G/DL (32.0-36.0) H Red Cell Distribution Width 12.8 % (11.6-14.8) 13.5 % (11.6-14.8) Platelet Count 473 K/UL (150-450) H 438 K/UL (150-450) Mean Platelet Volume 5.7 FL (6.5-10.1) L 5.8 FL (6.5-10.1) L Neutrophils (%) (Auto) 73.2 % (45.0-75.0) 84.1 % (45.0-75.0) H Lymphocytes (%) (Auto) 17.3 % (20.0-45.0) L 11.5 % (20.0-45.0) L Monocytes (%) (Auto) 8.0 % (1.0-10.0) 4.2 % (1.0-10.0) Eosinophils (%) (Auto) 0.8 % (0.0-3.0) 0.0 % (0.0-3.0) Basophils (%) (Auto) 0.8 % (0.0-2.0) 0.2 % (0.0-2.0) Prothrombin Time 10.9 SEC (9.30-11.50) 11.4 SEC (9.30-11.50) Prothromb Time International Ratio 1.0 (0.9-1.1) 1.0 (0.9-1.1) Activated Partial Thromboplast Time 27 SEC (23-33) 25 SEC (23-33) D-Dimer 0.72 mg/L FEU (0.00-0.49) H Sodium Level 127 MMOL/L (136-145) L 133 MMOL/L (136-145) L Potassium Level 4.1 MMOL/L (3.5-5.1) 4.1 MMOL/L (3.5-5.1) Chloride Level 95 MMOL/L (98-107) L 102 MMOL/L (98-107) Carbon Dioxide Level 23 MMOL/L (21-32) 23 MMOL/L (21-32) Anion Gap 10 mmol/L (5-15) 8 mmol/L (5-15) Blood Urea Nitrogen 8 mg/dL (7-18) 11 mg/dL (7-18) Creatinine 1.0 MG/DL (0.55-1.30) 0.9 MG/DL (0.55-1.30) Estimat Glomerular Filtration Rate 53.3 mL/min (>60) > 60 mL/min (>60) Glucose Level 121 MG/DL (74-106) H 134 MG/DL (74-106) H Lactic Acid Level 2.10 mmol/L (0.4-2.0) H 0.70 mmol/L (0.66-2.22) Calcium Level 8.6 MG/DL (8.5-10.1) 8.3 MG/DL (8.5-10.1) L Phosphorus Level 2.2 MG/DL (2.5-4.9) L 4.9 MG/DL (2.5-4.9) Magnesium Level 2.0 MG/DL (1.8-2.4) 2.4 MG/DL (1.8-2.4) Ferritin 289 NG/ML (8-388) Total Bilirubin 0.7 MG/DL (0.2-1.0) Aspartate Amino Transf (AST/SGOT) 26 U/L (15-37) Alanine Aminotransferase (ALT/SGPT) 33 U/L (12-78) Alkaline Phosphatase 64 U/L (46-116) Lactate Dehydrogenase 270 U/L (81-234) H Total Creatine Kinase 119 U/L (26-308) Troponin I 0.003 ng/mL (0.000-0.056) 0.005 ng/mL (0.000-0.056) C-Reactive Protein, Quantitative < 0.4 mg/dL (0.00-0.90) Pro-B-Type Natriuretic Peptide 217 pg/mL (0-125) H Total Protein 7.4 G/DL (6.4-8.2) Albumin 3.4 G/DL (3.4-5.0) 3.1 G/DL (3.4-5.0) L Globulin 4.0 g/dL Albumin/Globulin Ratio 0.9 (1.0-2.7) L Lipase 205 U/L (73-393) Height (Feet): 5 Height (Inches): 1.00 Weight (Pounds): 140 Medications Current Medications Medications (Trade) Dose Ordered Sig/James Route PRN Reason Start Time Stop Time Status Last Admin Dose Admin Acetaminophen (Tylenol) 650 mg Q4H PRN ORAL Temp >100.5 08/16/20 22:00 09/15/20 21:59 Albuterol/ Ipratropium (Combivent Respimat) 1 puff Q4H PRN INH Shortness of Breath 08/16/20 22:00 09/15/20 21:59 Aspirin (ASA) 81 mg DAILY ORAL 08/17/20 09:00 10/01/20 08:59 08/17/20 09:50 Azithromycin (Zithromax) 250 mg DAILY ORAL 08/18/20 10:00 08/22/20 09:01 Ceftriaxone Sodium 1 gm/ Dextrose 55 ml @ 110 mls/hr Q24H IVPB 08/17/20 15:00 08/24/20 21:59 Dexamethasone (Decadron) 4 mg DAILY ORAL 08/17/20 09:00 09/16/20 08:59 08/17/20 09:50 Dextrose (Dextrose 50%) 25 ml Q30M PRN IV Hypoglycemia 08/16/20 22:00 11/14/20 21:59 Dextrose (Dextrose 50%) 50 ml Q30M PRN IV Hypoglycemia 08/16/20 22:00 11/14/20 21:59 Heparin Sodium (Porcine) (Heparin 5000 units/ml) 5,000 units EVERY 12 HOURS SUBQ 08/17/20 09:00 10/01/20 08:59 08/17/20 09:51 Iohexol (Omnipaque 350 100ml) 100 ml NOW PRN INJ Radiology Procedure 08/16/20 14:45 08/18/20 14:44 Losartan Potassium (Cozaar) 50 mg DAILY ORAL 08/17/20 09:00 09/16/20 08:59 08/17/20 09:51 Mirtazapine (Remeron) 15 mg BEDTIME ORAL 08/17/20 21:00 11/15/20 20:59 Ondansetron HCl (Zofran) 4 mg Q6H PRN IVP Nausea & Vomiting 08/16/20 22:00 09/15/20 21:59 Polyethylene Glycol (Miralax) 17 gm DAILYPRN PRN ORAL Constipation 08/16/20 22:00 09/15/20 21:59 Promethazine HCl/ Codeine (Phenergan with Codeine) 5 ml Q6H PRN ORAL cough 08/16/20 22:00 09/15/20 21:59 Assessment/Plan Problem List: (1) Bilateral pneumonia ICD Codes: J18.9 - Pneumonia, unspecified organism SNOMED: 624924676 (2) COVID-19 ICD Codes: U07.1 - COVID-19 SNOMED: 006385413 (3) Generalized weakness ICD Codes: R53.1 - Weakness SNOMED: 90771979 (4) History of depression ICD Codes: Z86.59 - Personal history of other mental and behavioral disorders SNOMED: 393356247 (5) History of hypertension ICD Codes: Z86.79 - Personal history of other diseases of the circulatory system SNOMED: 795303262 Assessment/Plan: Respiratory isolation Antivirals by ID Decardon antitussive titrate fio2 to sat of 92% f/u inflammatory markers dvt prophylaxis Pamela Irving MD Aug 17, 2020 14:12
[2020-08-17] MEDS ORDERED: Azithromycin 250 MG in D5W 275 ML IV SCH (15:00)
--- NOTE | 2020-08-17 15:08 | Internal Med Progress Note ---
Subjective Physician Name Lorenzo Basilio Attending Physician Current Medications Medications (Trade) Dose Ordered Sig/James Route PRN Reason Start Time Stop Time Status Last Admin Dose Admin Acetaminophen (Tylenol) 650 mg Q4H PRN ORAL Temp >100.5 08/16/20 22:00 09/15/20 21:59 Albuterol/ Ipratropium (Combivent Respimat) 1 puff Q4H PRN INH Shortness of Breath 08/16/20 22:00 09/15/20 21:59 Aspirin (ASA) 81 mg DAILY ORAL 08/17/20 09:00 10/01/20 08:59 08/17/20 09:50 Azithromycin (Zithromax) 250 mg DAILY ORAL 08/18/20 10:00 08/22/20 09:01 Ceftriaxone Sodium 1 gm/ Dextrose 55 ml @ 110 mls/hr Q24H IVPB 08/17/20 15:00 08/24/20 21:59 Dexamethasone (Decadron) 4 mg DAILY ORAL 08/17/20 09:00 09/16/20 08:59 08/17/20 09:50 Dextrose (Dextrose 50%) 25 ml Q30M PRN IV Hypoglycemia 08/16/20 22:00 11/14/20 21:59 Dextrose (Dextrose 50%) 50 ml Q30M PRN IV Hypoglycemia 08/16/20 22:00 11/14/20 21:59 Heparin Sodium (Porcine) (Heparin 5000 units/ml) 5,000 units EVERY 12 HOURS SUBQ 08/17/20 09:00 10/01/20 08:59 08/17/20 09:51 Iohexol (Omnipaque 350 100ml) 100 ml NOW PRN INJ Radiology Procedure 08/16/20 14:45 08/18/20 14:44 Losartan Potassium (Cozaar) 50 mg DAILY ORAL 08/17/20 09:00 09/16/20 08:59 08/17/20 09:51 Mirtazapine (Remeron) 15 mg BEDTIME ORAL 08/17/20 21:00 11/15/20 20:59 Ondansetron HCl (Zofran) 4 mg Q6H PRN IVP Nausea & Vomiting 08/16/20 22:00 09/15/20 21:59 Polyethylene Glycol (Miralax) 17 gm DAILYPRN PRN ORAL Constipation 08/16/20 22:00 09/15/20 21:59 Promethazine HCl/ Codeine (Phenergan with Codeine) 5 ml Q6H PRN ORAL cough 08/16/20 22:00 09/15/20 21:59 Allergies: Coded Allergies: No Known Allergies (Unverified , 05/22/20) Subjective awake, alert, responsive, denies any chest pain, decreased shortness of breath, sodium level 133. Objective Last Vital Signs Date Time Temp Pulse Resp B/P (MAP) Pulse Ox O2 Delivery O2 Flow Rate FiO2 08/17/20 14:22 98.6 76 18 131/51 100 Room Air Laboratory Tests Test 08/16/20 16:15 08/17/20 04:00 Lactic Acid Level 0.70 mmol/L (0.66-2.22) White Blood Count 4.4 K/UL (4.8-10.8) L Red Blood Count 4.11 M/UL (4.20-5.40) L Hemoglobin 12.4 G/DL (12.0-16.0) Hematocrit 33.0 % (37.0-47.0) L Mean Corpuscular Volume 80 FL (80-99) Mean Corpuscular Hemoglobin 30.2 PG (27.0-31.0) Mean Corpuscular Hemoglobin Concent 37.7 G/DL (32.0-36.0) H Red Cell Distribution Width 13.5 % (11.6-14.8) Platelet Count 438 K/UL (150-450) Mean Platelet Volume 5.8 FL (6.5-10.1) L Neutrophils (%) (Auto) 84.1 % (45.0-75.0) H Lymphocytes (%) (Auto) 11.5 % (20.0-45.0) L Monocytes (%) (Auto) 4.2 % (1.0-10.0) Eosinophils (%) (Auto) 0.0 % (0.0-3.0) Basophils (%) (Auto) 0.2 % (0.0-2.0) Prothrombin Time 11.4 SEC (9.30-11.50) Prothromb Time International Ratio 1.0 (0.9-1.1) Activated Partial Thromboplast Time 25 SEC (23-33) Sodium Level 133 MMOL/L (136-145) L Potassium Level 4.1 MMOL/L (3.5-5.1) Chloride Level 102 MMOL/L (98-107) Carbon Dioxide Level 23 MMOL/L (21-32) Anion Gap 8 mmol/L (5-15) Blood Urea Nitrogen 11 mg/dL (7-18) Creatinine 0.9 MG/DL (0.55-1.30) Estimat Glomerular Filtration Rate > 60 mL/min (>60) Glucose Level 134 MG/DL (74-106) H Calcium Level 8.3 MG/DL (8.5-10.1) L Phosphorus Level 4.9 MG/DL (2.5-4.9) Magnesium Level 2.4 MG/DL (1.8-2.4) Troponin I 0.005 ng/mL (0.000-0.056) Albumin 3.1 G/DL (3.4-5.0) L Intake and Output 08/16/20 08/17/20 19:00 07:00 Intake Total 1330 ml Output Total 100 ml Balance 1230 ml Intake IV Total 1330 ml Output Urine Total 100 ml Objective General: No acute distress, awake and alert HEENT: NCAT, sclera anicteric, PERRL, EOMI. Neck: Supple, no significant jugular venous distention, Lungs: Fair inspiratory effort, decreased air at the bases, no Wheeze or Rales. Heart: Regular rate and rhythm, normal S1/S2, no murmurs Abdomen: soft, nontender, nondistended. Normoactive bowel sounds. / Rectal: Refused and deferred. Extremities: No Cyanosis , clubbing or edema. Neuro: A&O x 3, Able to move all extremities Skin: warm, no rashes or lesions Psych: Normal mood and affect Assessment/Plan Assessment/Plan COVID-19 Pneumonia. hyponatremia Hypertension Schizophrenia. Plan: Antibiotics: Rocephin and azithromycin Follow-up with laboratory and cultures. Follow-up with pulmonary critical care and infection disease consultations. Decadron IV DVT prophylaxis. Heparin subcu CODE STATUS: Full code. Lorenzo Basilio MD Aug 17, 2020 15:08
[2020-08-17] MEDS: cefTRIAXone 1 GM in D5W 55 ML IVPB SCH (15:41)
--- NOTE | 2020-08-17 23:45 | History and Physical Report ---
DATE OF ADMISSION: 08/16/2020 CHIEF COMPLAINT: Shortness of breath and flu-like symptoms. HISTORY OF PRESENT ILLNESS: This is an 80-year-old female with past medical history significant for schizophrenia, hypertension, urinary tract infection, recent history of COVID-19 positive, diagnosed on 08/12/2020 presented to the emergency department accompanied with the family member after was noted to be the patient become shortness of breath, fatigue and lethargic. The patient's predominant complaint was gastrointestinal symptoms of nausea, vomiting, diarrhea, and decreased appetite. She denies any chest pain, hemoptysis, rashes, abdominal pain, and she has been having gradual onset of the symptoms progressive worsening over past several days associated with fever and chills. Denies any night sweats. Shortly after initial evaluation in the emergency department, the patient was admitted to the hospital with COVID-19 pneumonia and mild dehydration. PAST MEDICAL HISTORY/PAST SURGICAL HISTORY: Significant history of hernia, prior history of UTI, and history of hypertension. MEDICATIONS AT HOME: Please refer to medication reconciliation. ALLERGIES: No known drug allergies. SOCIAL HISTORY: No smoking, alcohol, or drugs. FAMILY HISTORY: Noncontributory. REVIEW OF SYSTEMS: No fever or chills. Denies any night sweats. Complained of fatigue, weakness, general body aches and flu-like symptoms. Denies any loss of consciousness. Denies any fall or head trauma. PHYSICAL EXAMINATION: VITAL SIGNS: On admission, temperature 97.2, pulse of 57, respiration 19, and blood pressure 152/61. GENERAL: The patient awake, responsive no acute distress. HEAD AND NECK: Pupils are equal and reactive. Extraocular movements are intact. Neck was supple. No JVD. LUNGS: Good air entry. No wheezing or rales. HEART: S1, S2. Regular rhythm. No gallops. ABDOMEN: Soft, nondistended and nontender. Positive bowel sounds. EXTREMITIES: No cyanosis, clubbing or edema. NEUROLOGIC: Cranial nerves II through XII was grossly intact. Motor is 5/5 in all extremities. Gait is intact. RECTAL: Refused and deferred. : Refused and deferred. PSYCHIATRIC: Mood and affect are intact. LABORATORY DATA: On admission from the emergency room, WBC of 8.2, hemoglobin 13, hematocrit 37, and platelets is 473. Sodium 127, potassium 4.1, chloride 95, bicarb is 23. BUN 8, creatinine 1.0, GFR is 53. Lactate is 2.10, phosphorus is 2.1, magnesium is 2.0, and troponin 0.003. ProBNP of 217. Lipase is 205. PT of 10 INR 1.0. PTT of 27. D-dimer is 0.72. Urinalysis essentially unremarkable. Chest x-ray, diffuse interstitial opacity similar to the increase compared to the prior examination. The patient had a CTA of the chest and thoracic and no central or large pulmonary emboli. Evaluation and pulmonary artery branches are is limited due to motion artifact. No aortic aneurysm or dissection. Patchy ground-glass opacity and density bilaterally comparable to the COVID-19 infection. ASSESSMENT: 1. COVID-19 pneumonia. 2. Hypertension. 3. Hyponatremia. 4. Hyperphosphatemia. 5. Schizophrenia disorder. PLAN: Admit the patient to medical unit with respiratory and droplet isolation. We will follow up with Dr. Irving from Pulmonary Critical Care and Dr. Timmy Fulton from Infectious Diseases. The patient is on Decadron broad-spectrum antibiotic with Rocephin and azithromycin and monitor blood pressure closely. Follow up with laboratory as well as culture. Code status is Full code. DVT prophylaxis, heparin subcutaneous. Lorenzo Bsailio M.D. DR: Meghna JOB#: [id number] CC:
[2020-08-18] VITALS: BP 128/75
[2020-08-18 03:30] VITALS: BP 122/53
[2020-08-18 04:46] LABS: BASOPHILS % (AUTO) 0.4 % (0.0-2.0); EOSINOPHILS % (AUTO) 0.1 % (0.0-3.0); HEMATOCRIT 30.9 % (37.0-47.0); HEMOGLOBIN 11.5 G/DL (12.0-16.0); LYMPHOCYTES % (AUTO) 17.9 % (20.0-45.0); MEAN CORPUSCULAR VOLUME 79 FL (80-99); MONOCYTES % (AUTO) 10.9 % (1.0-10.0); NEUTROPHILS % (AUTO) 70.7 % (45.0-75.0); PLATELET COUNT 404 K/UL (150-450); RED CELL DISTRIBUTION WIDTH 14.9 % (11.6-14.8); WHITE BLOOD COUNT 8.6 K/UL (4.8-10.8)
[2020-08-18 04:57] LABS: ALANINE AMINOTRANSFERASE 26 U/L (12-78); ALBUMIN/GLOBULIN RATIO 0.8 (1.0-2.7); ALKALINE PHOSPHATASE 44 U/L (46-116); ANION GAP 6 mmol/L (5-15); ASPARTATE AMINO TRANSFERASE 19 U/L (15-37); BILIRUBIN,TOTAL 0.5 MG/DL (0.2-1.0); BLOOD UREA NITROGEN 16 mg/dL (7-18); CALCIUM 8.3 MG/DL (8.5-10.1); CARBON DIOXIDE 25 MMOL/L (21-32); CHLORIDE 102 MMOL/L (98-107); CREATININE 0.8 MG/DL (0.55-1.30); PHOSPHORUS 3.6 MG/DL (2.5-4.9); POTASSIUM 3.8 MMOL/L (3.5-5.1); SODIUM 133 MMOL/L (136-145)
[2020-08-18 06:35] VITALS: BP 143/55
[2020-08-18] MEDS: Losartan 25mg tab ORAL SCH (08:48)
[2020-08-18] MEDS: Aspirin Baby 81mg ORAL SCH (08:48)
[2020-08-18] MEDS: Heparin 5000 units/ml inj SUBQ SCH ×2 (08:49→20:57)
[2020-08-18] MEDS: Azithromycin 250mg tab ORAL SCH (10:09)
--- NOTE | 2020-08-18 10:48 | Consultation ---
History of Present Illness General Date patient seen: Aug 18, 2020 Time patient seen: 10:42 Chief Complaint: Flu Like Symptoms Referring physician: Dr. Basilio Reason for Consultation: COVID+ Present Illness HPI 80yo F with PMH of schizophrenia who was dx'd w/ COVID 08/13, p/w lethargy, fatigue and SOB. She has been AF in house, HDS on RA. WBC wnl. Doing well. Allergies: Coded Allergies: No Known Allergies (Unverified , 05/22/20) Medication History Scheduled Alprazolam (Alprazolam), 0.25 MG ORAL TID, (Reported) Amoxicillin/Potassium Clav 875-125* (Augmentin 875-125 Tablet*), 1 TAB ORAL TWICE A DAY Aspirin* (Aspirin*), 81 MG ORAL DAILY, (Reported) Azithromycin* (Zithromax*), 250 MG ORAL DAILY Losartan Potassium* (Losartan Potassium*), 50 MG ORAL DAILY, (Reported) Mirtazapine* (Remeron*), 15 MG ORAL BEDTIME, (Reported) Ondansetron Odt* (Zofran Odt*), 4 MG BC EVERY 8 HOURS Scheduled PRN Acetaminophen* (Tylenol Extra Strength*), 500 MG ORAL Q8H PRN for Prn Headache/Temp > 101 Patient History Healthcare decision maker N Resuscitation status Advanced Directive on File Review of Systems ROS Narrative 10-point ROS neg except as noted in HPI Physical Exam Physical Exam Narrative Gen: NAD HEENT: NCAT Pulm: BL chest rise, non-labored Abd: Soft, NTND Ext: No c/c/e Neuro: Awake Last 24 Hour Vital Signs Date Time Temp Pulse Resp B/P (MAP) Pulse Ox O2 Delivery O2 Flow Rate FiO2 08/18/20 08:48 172/59 08/18/20 06:35 98.6 73 15 143/55 98 Room Air 08/18/20 03:30 60 15 122/53 98 Room Air 08/18/20 00:00 98.4 68 15 128/75 98 Room Air 08/18/20 00:00 68 15 Room Air 08/17/20 20:32 98.6 76 22 133/51 97 Room Air 08/17/20 18:00 98.6 81 22 124/53 99 Room Air 08/17/20 14:22 98.6 76 18 131/51 100 Room Air 08/17/20 12:18 72 15 125/45 99 Room Air Intake and Output 08/17/20 08/18/20 19:00 07:00 Output Total 750 ml Balance -750 ml Output Urine Total 750 ml Laboratory Tests Test 08/18/20 04:32 White Blood Count 8.6 K/UL (4.8-10.8) # Red Blood Count 3.90 M/UL (4.20-5.40) L Hemoglobin 11.5 G/DL (12.0-16.0) L Hematocrit 30.9 % (37.0-47.0) L Mean Corpuscular Volume 79 FL (80-99) L Mean Corpuscular Hemoglobin 29.3 PG (27.0-31.0) Mean Corpuscular Hemoglobin Concent 37.1 G/DL (32.0-36.0) H Red Cell Distribution Width 14.9 % (11.6-14.8) H Platelet Count 404 K/UL (150-450) Mean Platelet Volume 5.9 FL (6.5-10.1) L Neutrophils (%) (Auto) 70.7 % (45.0-75.0) Lymphocytes (%) (Auto) 17.9 % (20.0-45.0) L Monocytes (%) (Auto) 10.9 % (1.0-10.0) H Eosinophils (%) (Auto) 0.1 % (0.0-3.0) Basophils (%) (Auto) 0.4 % (0.0-2.0) Erythrocyte Sedimentation Rate 34 MM/HR (0-30) H Sodium Level 133 MMOL/L (136-145) L Potassium Level 3.8 MMOL/L (3.5-5.1) Chloride Level 102 MMOL/L (98-107) Carbon Dioxide Level 25 MMOL/L (21-32) Anion Gap 6 mmol/L (5-15) Blood Urea Nitrogen 16 mg/dL (7-18) Creatinine 0.8 MG/DL (0.55-1.30) Estimat Glomerular Filtration Rate > 60 mL/min (>60) Glucose Level 98 MG/DL (74-106) Calcium Level 8.3 MG/DL (8.5-10.1) L Phosphorus Level 3.6 MG/DL (2.5-4.9) Magnesium Level 2.1 MG/DL (1.8-2.4) Total Bilirubin 0.5 MG/DL (0.2-1.0) Aspartate Amino Transf (AST/SGOT) 19 U/L (15-37) Alanine Aminotransferase (ALT/SGPT) 26 U/L (12-78) Alkaline Phosphatase 44 U/L (46-116) L C-Reactive Protein, Quantitative < 0.4 mg/dL (0.00-0.90) Total Protein 6.6 G/DL (6.4-8.2) Albumin 3.0 G/DL (3.4-5.0) L Globulin 3.6 g/dL Albumin/Globulin Ratio 0.8 (1.0-2.7) L Height (Feet): 5 Height (Inches): 1.00 Weight (Pounds): 140 Medications Current Medications Medications (Trade) Dose Ordered Sig/James Route PRN Reason Start Time Stop Time Status Last Admin Dose Admin Acetaminophen (Tylenol) 650 mg Q4H PRN ORAL Temp >100.5 08/16/20 22:00 09/15/20 21:59 Albuterol/ Ipratropium (Combivent Respimat) 1 puff Q4H PRN INH Shortness of Breath 08/16/20 22:00 09/15/20 21:59 Aspirin (ASA) 81 mg DAILY ORAL 08/17/20 09:00 10/01/20 08:59 08/18/20 08:48 Azithromycin (Zithromax) 250 mg DAILY ORAL 08/18/20 10:00 08/22/20 09:01 08/18/20 10:09 Ceftriaxone Sodium 1 gm/ Dextrose 55 ml @ 110 mls/hr Q24H IVPB 08/17/20 15:00 08/24/20 21:59 08/17/20 15:41 Dexamethasone (Decadron) 4 mg DAILY ORAL 08/17/20 09:00 08/25/20 08:59 08/18/20 08:48 Dextrose (Dextrose 50%) 25 ml Q30M PRN IV Hypoglycemia 08/16/20 22:00 11/14/20 21:59 Dextrose (Dextrose 50%) 50 ml Q30M PRN IV Hypoglycemia 08/16/20 22:00 3/26/21 21:59 Heparin Sodium (Porcine) (Heparin 5000 units/ml) 5,000 units EVERY 12 HOURS SUBQ 08/17/20 09:00 10/01/20 08:59 08/18/20 08:49 Iohexol (Omnipaque 350 100ml) 100 ml NOW PRN INJ Radiology Procedure 08/16/20 14:45 08/18/20 14:44 Losartan Potassium (Cozaar) 50 mg DAILY ORAL 08/18/20 09:00 09/16/20 08:59 08/18/20 08:48 Mirtazapine (Remeron) 15 mg BEDTIME ORAL 08/17/20 21:00 11/15/20 20:59 08/17/20 21:02 Ondansetron HCl (Zofran) 4 mg Q6H PRN IVP Nausea & Vomiting 08/16/20 22:00 09/15/20 21:59 Polyethylene Glycol (Miralax) 17 gm DAILYPRN PRN ORAL Constipation 08/16/20 22:00 09/15/20 21:59 Promethazine HCl/ Codeine (Phenergan with Codeine) 5 ml Q6H PRN ORAL cough 08/16/20 22:00 09/15/20 21:59 Assessment/Plan Assessment/Plan: 80yo F with: COVID pna, relatively mild Afebrile Normal WBC Lymphopenia 08/13 COVID + prior to admission 08/16 BCx p Resp cx p UA neg CTA chest: 1. No central or large pulmonary embolus identified. Evaluation of the pulmonary arterial branches is limited by motion artifact. 2. No aortic aneurysm or dissection. 3. Patchy ground-glass opacities and densities bilaterally, compatible with Covid 19 infection. Cr 0.8 Schizophrenia Plan: Cont dexamethasone (increase to 6mg daily) #2/10 - will stop if remains on RA Cont empiric CTX/azithro #2/5 for now - will stop if remains on RA Not candidate for RDV given doing well on RA F/u BCx, resp cx Monitor CBC/CMP Monitor resp status Monitor temp curve, hemodynamics D/w RN Thank you for this consult. [facility] will continue to follow. Olive Eric M.D. Aug 18, 2020 10:48
[2020-08-18 11:00] VITALS: BP 165/68
--- NOTE | 2020-08-18 12:24 | Pulmonology Progress Note ---
Subjective ROS Limited/Unobtainable: Yes Allergies: Coded Allergies: No Known Allergies (Unverified , 05/22/20) Objective Last 24 Hour Vital Signs Date Time Temp Pulse Resp B/P (MAP) Pulse Ox O2 Delivery O2 Flow Rate FiO2 08/18/20 11:31 Room Air 08/18/20 10:50 98.6 68 18 124/52 100 Room Air 08/18/20 08:48 172/59 08/18/20 06:35 98.6 73 15 143/55 98 Room Air 08/18/20 03:30 60 15 122/53 98 Room Air 08/18/20 00:00 98.4 68 15 128/75 98 Room Air 08/18/20 00:00 68 15 Room Air 08/17/20 20:32 98.6 76 22 133/51 97 Room Air 08/17/20 18:00 98.6 81 22 124/53 99 Room Air 08/17/20 14:22 98.6 76 18 131/51 100 Room Air Intake and Output 08/17/20 08/18/20 19:00 07:00 Output Total 750 ml Balance -750 ml Output Urine Total 750 ml General Appearance: WD/WN HEENT: normocephalic, atraumatic Respiratory: chest wall non-tender, lungs clear Breasts: no masses Cardiovascular: normal peripheral pulses Abdomen: normal bowel sounds, soft, non tender Genitourinary: normal external genitalia Skin: no rash Laboratory Tests 08/18/20 04:32: White Blood Count 8.6#, Red Blood Count 3.90L, Hemoglobin 11.5L, Hematocrit 30.9L, Mean Corpuscular Volume 79L, Mean Corpuscular Hemoglobin 29.3, Mean Corpuscular Hemoglobin Concent 37.1H, Red Cell Distribution Width 14.9H, Platelet Count 404, Mean Platelet Volume 5.9L, Neutrophils (%) (Auto) 70.7, Lymphocytes (%) (Auto) 17.9L, Monocytes (%) (Auto) 10.9H, Eosinophils (%) (Auto) 0.1, Basophils (%) (Auto) 0.4, Erythrocyte Sedimentation Rate 34H, Sodium Level 133L, Potassium Level 3.8, Chloride Level 102, Carbon Dioxide Level 25, Anion Gap 6, Blood Urea Nitrogen 16, Creatinine 0.8, Estimat Glomerular Filtration Rate > 60, Glucose Level 98, Calcium Level 8.3L, Phosphorus Level 3.6, Magnesium Level 2.1, Total Bilirubin 0.5, Aspartate Amino Transf (AST/SGOT) 19, Alanine Aminotransferase (ALT/SGPT) 26, Alkaline Phosphatase 44L, C-Reactive Protein, Quantitative < 0.4, Total Protein 6.6, Albumin 3.0L, Globulin 3.6, Albumin/Globulin Ratio 0.8L Current Medications Medications (Trade) Dose Ordered Sig/James Route PRN Reason Start Time Stop Time Status Last Admin Dose Admin Acetaminophen (Tylenol) 650 mg Q4H PRN ORAL Temp >100.5 08/16/20 22:00 09/15/20 21:59 Albuterol/ Ipratropium (Combivent Respimat) 1 puff Q4H PRN INH Shortness of Breath 08/16/20 22:00 09/15/20 21:59 Aspirin (ASA) 81 mg DAILY ORAL 08/17/20 09:00 10/01/20 08:59 08/18/20 08:48 Azithromycin (Zithromax) 250 mg DAILY ORAL 08/18/20 10:00 08/22/20 09:01 08/18/20 10:09 Ceftriaxone Sodium 1 gm/ Dextrose 55 ml @ 110 mls/hr Q24H IVPB 08/17/20 15:00 08/24/20 21:59 08/17/20 15:41 Dexamethasone (Decadron) 6 mg DAILY ORAL 08/19/20 09:00 08/27/20 09:01 Dextrose (Dextrose 50%) 25 ml Q30M PRN IV Hypoglycemia 08/16/20 22:00 11/14/20 21:59 Dextrose (Dextrose 50%) 50 ml Q30M PRN IV Hypoglycemia 08/16/20 22:00 11/14/20 21:59 Heparin Sodium (Porcine) (Heparin 5000 units/ml) 5,000 units EVERY 12 HOURS SUBQ 08/17/20 09:00 10/01/20 08:59 08/18/20 08:49 Iohexol (Omnipaque 350 100ml) 100 ml NOW PRN INJ Radiology Procedure 08/16/20 14:45 08/18/20 14:44 Losartan Potassium (Cozaar) 50 mg DAILY ORAL 08/18/20 09:00 09/16/20 08:59 08/18/20 08:48 Mirtazapine (Remeron) 15 mg BEDTIME ORAL 08/17/20 21:00 11/15/20 20:59 08/17/20 21:02 Ondansetron HCl (Zofran) 4 mg Q6H PRN IVP Nausea & Vomiting 08/16/20 22:00 09/15/20 21:59 Polyethylene Glycol (Miralax) 17 gm DAILYPRN PRN ORAL Constipation 08/16/20 22:00 09/15/20 21:59 Promethazine HCl/ Codeine (Phenergan with Codeine) 5 ml Q6H PRN ORAL cough 08/16/20 22:00 09/15/20 21:59 Assessment/Plan Problems: (1) Bilateral pneumonia (2) COVID-19 (3) Generalized weakness (4) History of depression (5) History of hypertension Assessment/Plan doing better, afebrile Respiratory isolation Antivirals by ID Decardon antitussive titrate fio2 to sat of 92% f/u inflammatory markers dvt prophylaxis Pamela Irving MD Aug 18, 2020 12:24
[2020-08-18 13:26] VITALS: BP 134/90
[2020-08-18] MEDS: ALPRAZolam 0.5mg tab ORAL PRN (14:40)
[2020-08-18] MEDS: cefTRIAXone 1 GM in D5W 55 ML IVPB SCH (15:16)
--- NOTE | 2020-08-18 15:55 | Internal Med Progress Note ---
Subjective Physician Name Lorenzo Basilio Attending Physician Lorenzo Basilio MD Current Medications Medications (Trade) Dose Ordered Sig/James Route PRN Reason Start Time Stop Time Status Last Admin Dose Admin Acetaminophen (Tylenol) 650 mg Q4H PRN ORAL Temp >100.5 08/16/20 22:00 09/15/20 21:59 Albuterol/ Ipratropium (Combivent Respimat) 1 puff Q4H PRN INH Shortness of Breath 08/16/20 22:00 09/15/20 21:59 Alprazolam (Xanax) 0.5 mg Q6H PRN ORAL For Anxiety 08/18/20 13:32 08/25/20 13:31 08/18/20 14:40 Aspirin (ASA) 81 mg DAILY ORAL 08/17/20 09:00 10/01/20 08:59 08/18/20 08:48 Azithromycin (Zithromax) 250 mg DAILY ORAL 08/18/20 10:00 08/22/20 09:01 08/18/20 10:09 Ceftriaxone Sodium 1 gm/ Dextrose 55 ml @ 110 mls/hr Q24H IVPB 08/17/20 15:00 08/24/20 21:59 08/18/20 15:16 Dexamethasone (Decadron) 6 mg DAILY ORAL 08/19/20 09:00 08/27/20 09:01 Dextrose (Dextrose 50%) 25 ml Q30M PRN IV Hypoglycemia 08/16/20 22:00 11/14/20 21:59 Dextrose (Dextrose 50%) 50 ml Q30M PRN IV Hypoglycemia 08/16/20 22:00 11/14/20 21:59 Heparin Sodium (Porcine) (Heparin 5000 units/ml) 5,000 units EVERY 12 HOURS SUBQ 08/17/20 09:00 10/01/20 08:59 08/18/20 08:49 Losartan Potassium (Cozaar) 50 mg DAILY ORAL 08/18/20 09:00 09/16/20 08:59 08/18/20 08:48 Mirtazapine (Remeron) 15 mg BEDTIME ORAL 08/17/20 21:00 11/15/20 20:59 08/17/20 21:02 Ondansetron HCl (Zofran) 4 mg Q6H PRN IVP Nausea & Vomiting 08/16/20 22:00 09/15/20 21:59 Polyethylene Glycol (Miralax) 17 gm DAILYPRN PRN ORAL Constipation 08/16/20 22:00 09/15/20 21:59 Promethazine HCl/ Codeine (Phenergan with Codeine) 5 ml Q6H PRN ORAL cough 08/16/20 22:00 09/15/20 21:59 Allergies: Coded Allergies: No Known Allergies (Unverified , 05/22/20) Subjective awake, alert, responsive, denies any chest pain, decreased shortness of breath, sodium level 133. Objective Last Vital Signs Date Time Temp Pulse Resp B/P (MAP) Pulse Ox O2 Delivery O2 Flow Rate FiO2 08/18/20 13:26 97.7 18 134/90 (105) 97 08/18/20 11:31 Room Air 08/18/20 11:00 77 08/18/20 11:00 2.0 Laboratory Tests Test 08/18/20 04:32 White Blood Count 8.6 K/UL (4.8-10.8) # Red Blood Count 3.90 M/UL (4.20-5.40) L Hemoglobin 11.5 G/DL (12.0-16.0) L Hematocrit 30.9 % (37.0-47.0) L Mean Corpuscular Volume 79 FL (80-99) L Mean Corpuscular Hemoglobin 29.3 PG (27.0-31.0) Mean Corpuscular Hemoglobin Concent 37.1 G/DL (32.0-36.0) H Red Cell Distribution Width 14.9 % (11.6-14.8) H Platelet Count 404 K/UL (150-450) Mean Platelet Volume 5.9 FL (6.5-10.1) L Neutrophils (%) (Auto) 70.7 % (45.0-75.0) Lymphocytes (%) (Auto) 17.9 % (20.0-45.0) L Monocytes (%) (Auto) 10.9 % (1.0-10.0) H Eosinophils (%) (Auto) 0.1 % (0.0-3.0) Basophils (%) (Auto) 0.4 % (0.0-2.0) Erythrocyte Sedimentation Rate 34 MM/HR (0-30) H Sodium Level 133 MMOL/L (136-145) L Potassium Level 3.8 MMOL/L (3.5-5.1) Chloride Level 102 MMOL/L (98-107) Carbon Dioxide Level 25 MMOL/L (21-32) Anion Gap 6 mmol/L (5-15) Blood Urea Nitrogen 16 mg/dL (7-18) Creatinine 0.8 MG/DL (0.55-1.30) Estimat Glomerular Filtration Rate > 60 mL/min (>60) Glucose Level 98 MG/DL (74-106) Calcium Level 8.3 MG/DL (8.5-10.1) L Phosphorus Level 3.6 MG/DL (2.5-4.9) Magnesium Level 2.1 MG/DL (1.8-2.4) Total Bilirubin 0.5 MG/DL (0.2-1.0) Aspartate Amino Transf (AST/SGOT) 19 U/L (15-37) Alanine Aminotransferase (ALT/SGPT) 26 U/L (12-78) Alkaline Phosphatase 44 U/L (46-116) L C-Reactive Protein, Quantitative < 0.4 mg/dL (0.00-0.90) Total Protein 6.6 G/DL (6.4-8.2) Albumin 3.0 G/DL (3.4-5.0) L Globulin 3.6 g/dL Albumin/Globulin Ratio 0.8 (1.0-2.7) L Intake and Output 08/17/20 08/18/20 19:00 07:00 Output Total 750 ml Balance -750 ml Output Urine Total 750 ml Objective General: No acute distress, awake and alert HEENT: NCAT, sclera anicteric, PERRL, EOMI. Neck: Supple, no significant jugular venous distention, Lungs: Fair inspiratory effort, decreased air at the bases, no Wheeze or Rales. Heart: Regular rate and rhythm, normal S1/S2, no murmurs Abdomen: soft, nontender, nondistended. Normoactive bowel sounds. / Rectal: Refused and deferred. Extremities: No Cyanosis , clubbing or edema. Neuro: A&O x 3, Able to move all extremities Skin: warm, no rashes or lesions Psych: Normal mood and affect Assessment/Plan Assessment/Plan COVID-19 Pneumonia. hyponatremia Hypertension Schizophrenia. Plan: Antibiotics: Rocephin and azithromycin Follow-up with laboratory and cultures. Follow-up with pulmonary critical care and infection disease consultations. Decadron IV DVT prophylaxis. Heparin subcu CODE STATUS: Full code. Titrate fio2 to sat of 92% Lorenzo Basilio MD Aug 18, 2020 15:55
[2020-08-18 20:53] VITALS: BP 131/58
[2020-08-19] VITALS (8 sets, daily range): BP systolic 142–176; BP diastolic 58–101
[2020-08-19 06:26] LABS: BASOPHILS % (AUTO) 0.7 % (0.0-2.0); EOSINOPHILS % (AUTO) 0.4 % (0.0-3.0); HEMATOCRIT 36.5 % (37.0-47.0); HEMOGLOBIN 12.9 G/DL (12.0-16.0); LYMPHOCYTES % (AUTO) 23.2 % (20.0-45.0); MEAN CORPUSCULAR VOLUME 83 FL (80-99); MONOCYTES % (AUTO) 10.1 % (1.0-10.0); NEUTROPHILS % (AUTO) 65.5 % (45.0-75.0); PLATELET COUNT 400 K/UL (150-450); RED BLOOD COUNT 4.37 M/UL (4.20-5.40); RED CELL DISTRIBUTION WIDTH 13.8 % (11.6-14.8); WHITE BLOOD COUNT 7.4 K/UL (4.8-10.8)
[2020-08-19 06:35] LABS: ANION GAP 7 mmol/L (5-15); BLOOD UREA NITROGEN 21 mg/dL (7-18); CALCIUM 8.8 MG/DL (8.5-10.1); CARBON DIOXIDE 27 MMOL/L (21-32); CHLORIDE 103 MMOL/L (98-107); CREATININE 0.9 MG/DL (0.55-1.30); SODIUM 136 MMOL/L (136-145)
[2020-08-19] MEDS: Aspirin Baby 81mg ORAL SCH (08:57)
[2020-08-19] MEDS: Azithromycin 250mg tab ORAL SCH (08:57)
[2020-08-19] MEDS: Losartan 25mg tab ORAL SCH (08:57)
[2020-08-19] MEDS: Heparin 5000 units/ml inj SUBQ SCH ×2 (08:58→21:15)
--- NOTE | 2020-08-19 09:12 | Infectious Diseases Prog Note ---
Assessment/Plan 80yo F with: COVID pna, relatively mild Afebrile Normal WBC Lymphopenia 08/13 COVID + prior to admission 08/16 BCx NTD Resp cx p UA neg CTA chest: 1. No central or large pulmonary embolus identified. Evaluation of the pulmonary arterial branches is limited by motion artifact. 2. No aortic aneurysm or dissection. 3. Patchy ground-glass opacities and densities bilaterally, compatible with Covid 19 infection. Cr 0.8 Schizophrenia Plan: Cont dexamethasone #3/10 - will stop if remains on RA Cont empiric CTX/azithro #3/5 for now - will stop if remains on RA Not candidate for RDV given doing well on RA F/u BCx, resp cx Monitor CBC/CMP Monitor resp status Monitor temp curve, hemodynamics D/w RN Thank you for this consult. [facility] will continue to follow. Subjective Allergies: Coded Allergies: No Known Allergies (Unverified , 05/22/20) AF WBC 7.4 NAD Doing ok, feeling overall better Didn't sleep well due to too much beeping in room Objective Last 24 Hour Vital Signs Date Time Temp Pulse Resp B/P (MAP) Pulse Ox O2 Delivery O2 Flow Rate FiO2 08/19/20 08:57 162/71 08/19/20 08:00 98.1 64 18 162/71 (101) 98 08/19/20 06:38 73 164/71 (102) 08/19/20 04:00 98.1 67 18 176/67 (103) 99 08/19/20 02:09 142/101 (115) 08/19/20 00:00 97.7 58 16 167/77 (107) 98 08/18/20 20:53 98.6 72 17 131/58 (82) 100 08/18/20 20:00 Nasal Cannula 2.0 08/18/20 13:26 97.7 18 134/90 (105) 97 08/18/20 11:31 Room Air 08/18/20 11:00 96.8 77 18 165/68 (100) 98 08/18/20 11:00 Nasal Cannula 2.0 08/18/20 10:50 98.6 68 18 124/52 100 Room Air Height (Feet): 5 Height (Inches): 1.00 Weight (Pounds): 140 Gen: NAD HEENT: NCAT Pulm: BL chest rise Abd: Non-distended Ext: No c/c/e Skin: No visible rashes Neuro: Awake Microbiology Date/Time Source Procedure Growth Status 08/16/20 14:00 Blood Blood Culture - Preliminary NO GROWTH AFTER 48 HOURS Resulted 08/16/20 14:00 Blood Blood Culture - Preliminary NO GROWTH AFTER 48 HOURS Resulted Laboratory Tests Test 08/19/20 05:40 White Blood Count 7.4 K/UL (4.8-10.8) Red Blood Count 4.37 M/UL (4.20-5.40) Hemoglobin 12.9 G/DL (12.0-16.0) Hematocrit 36.5 % (37.0-47.0) L Mean Corpuscular Volume 83 FL (80-99) Mean Corpuscular Hemoglobin 29.4 PG (27.0-31.0) Mean Corpuscular Hemoglobin Concent 35.2 G/DL (32.0-36.0) Red Cell Distribution Width 13.8 % (11.6-14.8) Platelet Count 400 K/UL (150-450) Mean Platelet Volume 5.9 FL (6.5-10.1) L Neutrophils (%) (Auto) 65.5 % (45.0-75.0) Lymphocytes (%) (Auto) 23.2 % (20.0-45.0) Monocytes (%) (Auto) 10.1 % (1.0-10.0) H Eosinophils (%) (Auto) 0.4 % (0.0-3.0) Basophils (%) (Auto) 0.7 % (0.0-2.0) Sodium Level 136 MMOL/L (136-145) Potassium Level 4.0 MMOL/L (3.5-5.1) Chloride Level 103 MMOL/L (98-107) Carbon Dioxide Level 27 MMOL/L (21-32) Anion Gap 7 mmol/L (5-15) Blood Urea Nitrogen 21 mg/dL (7-18) H Creatinine 0.9 MG/DL (0.55-1.30) Estimat Glomerular Filtration Rate > 60 mL/min (>60) Glucose Level 85 MG/DL (74-106) Calcium Level 8.8 MG/DL (8.5-10.1) Current Medications Medications (Trade) Dose Ordered Sig/James Route PRN Reason Start Time Stop Time Status Last Admin Dose Admin Acetaminophen (Tylenol) 650 mg Q4H PRN ORAL Temp >100.5 08/16/20 22:00 09/15/20 21:59 Albuterol/ Ipratropium (Combivent Respimat) 1 puff Q4H PRN INH Shortness of Breath 08/16/20 22:00 09/15/20 21:59 Alprazolam (Xanax) 0.5 mg Q6H PRN ORAL For Anxiety 08/18/20 13:32 08/25/20 13:31 08/18/20 14:40 Aspirin (ASA) 81 mg DAILY ORAL 08/17/20 09:00 10/01/20 08:59 08/19/20 08:57 Azithromycin (Zithromax) 250 mg DAILY ORAL 08/18/20 10:00 08/22/20 09:01 08/19/20 08:57 Ceftriaxone Sodium 1 gm/ Dextrose 55 ml @ 110 mls/hr Q24H IVPB 08/17/20 15:00 08/24/20 21:59 08/18/20 15:16 Dexamethasone (Decadron) 6 mg DAILY ORAL 08/19/20 09:00 08/27/20 09:01 08/19/20 08:57 Dextrose (Dextrose 50%) 25 ml Q30M PRN IV Hypoglycemia 08/16/20 22:00 11/14/20 21:59 Dextrose (Dextrose 50%) 50 ml Q30M PRN IV Hypoglycemia 08/16/20 22:00 11/14/20 21:59 Heparin Sodium (Porcine) (Heparin 5000 units/ml) 5,000 units EVERY 12 HOURS SUBQ 08/17/20 09:00 10/01/20 08:59 08/19/20 08:58 Losartan Potassium (Cozaar) 50 mg DAILY ORAL 08/18/20 09:00 09/16/20 08:59 08/19/20 08:57 Mirtazapine (Remeron) 15 mg BEDTIME ORAL 08/17/20 21:00 11/15/20 20:59 08/18/20 20:56 Ondansetron HCl (Zofran) 4 mg Q6H PRN IVP Nausea & Vomiting 08/16/20 22:00 09/15/20 21:59 Polyethylene Glycol (Miralax) 17 gm DAILYPRN PRN ORAL Constipation 08/16/20 22:00 09/15/20 21:59 Promethazine HCl/ Codeine (Phenergan with Codeine) 5 ml Q6H PRN ORAL cough 08/16/20 22:00 09/15/20 21:59 Zolpidem Tartrate (Ambien) 5 mg HSPRN PRN ORAL Insomnia 08/18/20 21:00 08/25/20 20:59 Olive Eric M.D. Aug 19, 2020 09:12
--- NOTE | 2020-08-19 11:57 | Pulmonology Progress Note ---
Subjective ROS Limited/Unobtainable: Yes Allergies: Coded Allergies: No Known Allergies (Unverified , 05/22/20) Objective Last 24 Hour Vital Signs Date Time Temp Pulse Resp B/P (MAP) Pulse Ox O2 Delivery O2 Flow Rate FiO2 08/19/20 08:57 162/71 08/19/20 08:00 98.1 64 18 162/71 (101) 98 08/19/20 06:38 73 164/71 (102) 08/19/20 04:00 98.1 67 18 176/67 (103) 99 08/19/20 02:09 142/101 (115) 08/19/20 00:00 97.7 58 16 167/77 (107) 98 08/18/20 20:53 98.6 72 17 131/58 (82) 100 08/18/20 20:00 Nasal Cannula 2.0 08/18/20 13:26 97.7 18 134/90 (105) 97 Intake and Output 08/18/20 08/19/20 19:00 07:00 Intake Total 55 ml Output Total 950 ml Balance -895 ml Intake IV Total 55 ml Output Urine Total 950 ml General Appearance: WD/WN HEENT: normocephalic, atraumatic Respiratory: chest wall non-tender, lungs clear Breasts: no masses Cardiovascular: normal peripheral pulses Abdomen: normal bowel sounds, soft, non tender Genitourinary: normal external genitalia Skin: no rash 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 normal Microbiology Date/Time Source Procedure Growth Status 08/16/20 14:00 Blood Blood Culture - Preliminary NO GROWTH AFTER 48 HOURS Resulted 08/16/20 14:00 Blood Blood Culture - Preliminary NO GROWTH AFTER 48 HOURS Resulted Laboratory Tests 08/19/20 05:40: White Blood Count 7.4, Red Blood Count 4.37, Hemoglobin 12.9, Hematocrit 36.5L, Mean Corpuscular Volume 83, Mean Corpuscular Hemoglobin 29.4, Mean Corpuscular Hemoglobin Concent 35.2, Red Cell Distribution Width 13.8, Platelet Count 400, Mean Platelet Volume 5.9L, Neutrophils (%) (Auto) 65.5, Lymphocytes (%) (Auto) 23.2, Monocytes (%) (Auto) 10.1H, Eosinophils (%) (Auto) 0.4, Basophils (%) (Auto) 0.7, Sodium Level 136, Potassium Level 4.0, Chloride Level 103, Carbon Dioxide Level 27, Anion Gap 7, Blood Urea Nitrogen 21H, Creatinine 0.9, Estimat Glomerular Filtration Rate > 60, Glucose Level 85, Calcium Level 8.8 Current Medications Medications (Trade) Dose Ordered Sig/James Route PRN Reason Start Time Stop Time Status Last Admin Dose Admin Acetaminophen (Tylenol) 650 mg Q4H PRN ORAL Temp >100.5 08/16/20 22:00 09/15/20 21:59 Albuterol/ Ipratropium (Combivent Respimat) 1 puff Q4H PRN INH Shortness of Breath 08/16/20 22:00 09/15/20 21:59 Alprazolam (Xanax) 0.5 mg Q6H PRN ORAL For Anxiety 08/18/20 13:32 08/25/20 13:31 08/18/20 14:40 Aspirin (ASA) 81 mg DAILY ORAL 08/17/20 09:00 10/01/20 08:59 08/19/20 08:57 Azithromycin (Zithromax) 250 mg DAILY ORAL 08/18/20 10:00 08/22/20 09:01 08/19/20 08:57 Ceftriaxone Sodium 1 gm/ Dextrose 55 ml @ 110 mls/hr Q24H IVPB 08/17/20 15:00 08/24/20 21:59 08/18/20 15:16 Dexamethasone (Decadron) 6 mg DAILY ORAL 08/19/20 09:00 08/27/20 09:01 08/19/20 08:57 Dextrose (Dextrose 50%) 25 ml Q30M PRN IV Hypoglycemia 08/16/20 22:00 11/14/20 21:59 Dextrose (Dextrose 50%) 50 ml Q30M PRN IV Hypoglycemia 08/16/20 22:00 11/14/20 21:59 Heparin Sodium (Porcine) (Heparin 5000 units/ml) 5,000 units EVERY 12 HOURS SUBQ 08/17/20 09:00 10/01/20 08:59 08/19/20 08:58 Losartan Potassium (Cozaar) 50 mg DAILY ORAL 08/18/20 09:00 09/16/20 08:59 08/19/20 08:57 Mirtazapine (Remeron) 15 mg BEDTIME ORAL 08/17/20 21:00 11/15/20 20:59 08/18/20 20:56 Ondansetron HCl (Zofran) 4 mg Q6H PRN IVP Nausea & Vomiting 08/16/20 22:00 09/15/20 21:59 Polyethylene Glycol (Miralax) 17 gm DAILYPRN PRN ORAL Constipation 08/16/20 22:00 09/15/20 21:59 Promethazine HCl/ Codeine (Phenergan with Codeine) 5 ml Q6H PRN ORAL cough 08/16/20 22:00 09/15/20 21:59 Zolpidem Tartrate (Ambien) 5 mg HSPRN PRN ORAL Insomnia 08/18/20 21:00 08/25/20 20:59 Assessment/Plan Problems: (1) Bilateral pneumonia (2) COVID-19 (3) Generalized weakness (4) History of depression (5) History of hypertension Assessment/Plan BP has been high doing better, afebrile Respiratory isolation Antivirals by ID Decardon antitussive titrate fio2 to sat of 92% f/u inflammatory markers dvt prophylaxis Pamela Irving MD Aug 19, 2020 11:57
[2020-08-19] MEDS: cefTRIAXone 1 GM in D5W 55 ML IVPB SCH (15:09)
--- NOTE | 2020-08-19 16:59 | Internal Med Progress Note ---
Subjective Date of Service: Aug 19, 2020 Physician Name JessicaMonty Attending Physician Lorenzo Basilio MD Current Medications Medications (Trade) Dose Ordered Sig/James Route PRN Reason Start Time Stop Time Status Last Admin Dose Admin Acetaminophen (Tylenol) 650 mg Q4H PRN ORAL Temp >100.5 08/16/20 22:00 09/15/20 21:59 Albuterol/ Ipratropium (Combivent Respimat) 1 puff Q4H PRN INH Shortness of Breath 08/16/20 22:00 09/15/20 21:59 Alprazolam (Xanax) 0.5 mg Q6H PRN ORAL For Anxiety 08/18/20 13:32 08/25/20 13:31 08/18/20 14:40 Amlodipine Besylate (Norvasc) 5 mg DAILY ORAL 08/20/20 09:00 09/19/20 08:59 Aspirin (ASA) 81 mg DAILY ORAL 08/17/20 09:00 10/01/20 08:59 08/19/20 08:57 Azithromycin (Zithromax) 250 mg DAILY ORAL 08/18/20 10:00 08/22/20 09:01 08/19/20 08:57 Ceftriaxone Sodium 1 gm/ Dextrose 55 ml @ 110 mls/hr Q24H IVPB 08/17/20 15:00 08/24/20 21:59 08/19/20 15:09 Dexamethasone (Decadron) 6 mg DAILY ORAL 08/19/20 09:00 08/27/20 09:01 08/19/20 08:57 Dextrose (Dextrose 50%) 25 ml Q30M PRN IV Hypoglycemia 08/16/20 22:00 11/14/20 21:59 Dextrose (Dextrose 50%) 50 ml Q30M PRN IV Hypoglycemia 08/16/20 22:00 11/14/20 21:59 Heparin Sodium (Porcine) (Heparin 5000 units/ml) 5,000 units EVERY 12 HOURS SUBQ 08/17/20 09:00 10/01/20 08:59 08/19/20 08:58 Losartan Potassium (Cozaar) 50 mg DAILY ORAL 08/18/20 09:00 09/16/20 08:59 08/19/20 08:57 Mirtazapine (Remeron) 15 mg BEDTIME ORAL 08/17/20 21:00 11/15/20 20:59 08/18/20 20:56 Ondansetron HCl (Zofran) 4 mg Q6H PRN IVP Nausea & Vomiting 08/16/20 22:00 09/15/20 21:59 Polyethylene Glycol (Miralax) 17 gm DAILYPRN PRN ORAL Constipation 08/16/20 22:00 09/15/20 21:59 Promethazine HCl/ Codeine (Phenergan with Codeine) 5 ml Q6H PRN ORAL cough 08/16/20 22:00 09/15/20 21:59 Zolpidem Tartrate (Ambien) 5 mg HSPRN PRN ORAL Insomnia 08/18/20 21:00 08/25/20 20:59 Allergies: Coded Allergies: No Known Allergies (Unverified , 05/22/20) ROS Limited/Unobtainable: No Constitutional: Reports: no symptoms HEENT: Reports: no symptoms Cardiovascular: Reports: no symptoms Respiratory: Reports: shortness of breath Gastrointestinal/Abdominal: Reports: no symptoms Genitourinary: Reports: no symptoms Neurologic/Psychiatric: Reports: no symptoms Subjective 80 YO F admitted with shortness of breath, nausea, vomiting and diarrhea. Now COVID 19 pneumonia. Cover for Int Med-Dr Basilio Objective Last Vital Signs Date Time Temp Pulse Resp B/P (MAP) Pulse Ox O2 Delivery O2 Flow Rate FiO2 08/19/20 12:00 98.1 62 18 160/58 (92) 98 08/19/20 09:00 Nasal Cannula 2.0 Laboratory Tests Test 08/19/20 05:40 White Blood Count 7.4 K/UL (4.8-10.8) Red Blood Count 4.37 M/UL (4.20-5.40) Hemoglobin 12.9 G/DL (12.0-16.0) Hematocrit 36.5 % (37.0-47.0) L Mean Corpuscular Volume 83 FL (80-99) Mean Corpuscular Hemoglobin 29.4 PG (27.0-31.0) Mean Corpuscular Hemoglobin Concent 35.2 G/DL (32.0-36.0) Red Cell Distribution Width 13.8 % (11.6-14.8) Platelet Count 400 K/UL (150-450) Mean Platelet Volume 5.9 FL (6.5-10.1) L Neutrophils (%) (Auto) 65.5 % (45.0-75.0) Lymphocytes (%) (Auto) 23.2 % (20.0-45.0) Monocytes (%) (Auto) 10.1 % (1.0-10.0) H Eosinophils (%) (Auto) 0.4 % (0.0-3.0) Basophils (%) (Auto) 0.7 % (0.0-2.0) Sodium Level 136 MMOL/L (136-145) Potassium Level 4.0 MMOL/L (3.5-5.1) Chloride Level 103 MMOL/L (98-107) Carbon Dioxide Level 27 MMOL/L (21-32) Anion Gap 7 mmol/L (5-15) Blood Urea Nitrogen 21 mg/dL (7-18) H Creatinine 0.9 MG/DL (0.55-1.30) Estimat Glomerular Filtration Rate > 60 mL/min (>60) Glucose Level 85 MG/DL (74-106) Calcium Level 8.8 MG/DL (8.5-10.1) Intake and Output 08/18/20 08/19/20 19:00 07:00 Intake Total 55 ml Output Total 950 ml Balance -895 ml Intake IV Total 55 ml Output Urine Total 950 ml Objective PHYSICAL EXAMINATION: GENERAL: The patient awake, responsive no acute distress. HEAD AND NECK: Pupils are equal and reactive. Extraocular movements are intact. Neck was supple. No JVD. LUNGS: Good air entry. No wheezing or rales. HEART: S1, S2. Regular rhythm. No gallops. ABDOMEN: Soft, nondistended and nontender. Positive bowel sounds. EXTREMITIES: No cyanosis, clubbing or edema. NEUROLOGIC: Cranial nerves II through XII was grossly intact. Motor is 5/5 in all extremities. Gait is intact. RECTAL: Refused and deferred. : Refused and deferred. PSYCHIATRIC: Mood and affect are intact. Assessment/Plan Assessment/Plan Assessment/Plan Assessment/Plan COVID-19 Pneumonia. hyponatremia Hypertension Schizophrenia. Plan: Antibiotics: Rocephin and azithromycin Follow-up with laboratory and cultures. Follow-up with pulmonary critical care and infection disease consultations. Decadron IV DVT prophylaxis. Heparin subcu CODE STATUS: Full code. Titrate FIO2 to sat of 92% Lopez,Monty MD Aug 19, 2020 16:59
[2020-08-19] MEDS: Zolpidem 5mg tab ORAL PRN (21:28)
[2020-08-19] MEDS: ALPRAZolam 0.5mg tab ORAL PRN (21:28)
[2020-08-20] VITALS: BP 155/65
[2020-08-20 04:00] VITALS: BP 145/82
[2020-08-20 07:13] LABS: BASOPHILS % (AUTO) 0.6 % (0.0-2.0); EOSINOPHILS % (AUTO) 0.1 % (0.0-3.0); HEMATOCRIT 38.7 % (37.0-47.0); HEMOGLOBIN 13.3 G/DL (12.0-16.0); LYMPHOCYTES % (AUTO) 15.8 % (20.0-45.0); MEAN CORPUSCULAR VOLUME 87 FL (80-99); MONOCYTES % (AUTO) 8.6 % (1.0-10.0); NEUTROPHILS % (AUTO) 74.8 % (45.0-75.0); PLATELET COUNT 378 K/UL (150-450); RED BLOOD COUNT 4.47 M/UL (4.20-5.40); RED CELL DISTRIBUTION WIDTH 14.3 % (11.6-14.8); WHITE BLOOD COUNT 9.1 K/UL (4.8-10.8)
[2020-08-20 07:32] LABS: ANION GAP 7 mmol/L (5-15); BLOOD UREA NITROGEN 25 mg/dL (7-18); CARBON DIOXIDE 26 MMOL/L (21-32); CHLORIDE 103 MMOL/L (98-107); CREATININE 0.8 MG/DL (0.55-1.30); POTASSIUM 4.5 MMOL/L (3.5-5.1); SODIUM 136 MMOL/L (136-145)
[2020-08-20 08:00] VITALS: BP 142/74
[2020-08-20] MEDS: Azithromycin 250mg tab ORAL SCH (08:51)
[2020-08-20] MEDS: Aspirin Baby 81mg ORAL SCH (08:51)
[2020-08-20] MEDS: Losartan 25mg tab ORAL SCH (08:51)
[2020-08-20] MEDS: Heparin 5000 units/ml inj SUBQ SCH ×2 (08:52→20:17)
--- NOTE | 2020-08-20 08:59 | Infectious Diseases Prog Note ---
Assessment/Plan 80yo F with: COVID pna, relatively mild Afebrile Normal WBC Lymphopenia 08/13 COVID + prior to admission 08/16 BCx NTD Resp cx p UA neg CTA chest: 1. No central or large pulmonary embolus identified. Evaluation of the pulmonary arterial branches is limited by motion artifact. 2. No aortic aneurysm or dissection. 3. Patchy ground-glass opacities and densities bilaterally, compatible with Covid 19 infection. Cr 0.8 Schizophrenia Plan: Cont dexamethasone #4/10 - will stop if remains on RA Stop empiric CTX/azithro #4/5 given doing well on RA Not candidate for RDV given doing well on RA F/u BCx, resp cx Monitor CBC/CMP Monitor resp status Monitor temp curve, hemodynamics D/w RN Thank you for this consult. [facility] will continue to follow. Subjective Allergies: Coded Allergies: No Known Allergies (Unverified , 05/22/20) AF NAD Satting 98% on 2L NC WBC 9.1 Objective Last 24 Hour Vital Signs Date Time Temp Pulse Resp B/P (MAP) Pulse Ox O2 Delivery O2 Flow Rate FiO2 08/20/20 08:51 81 164/67 08/20/20 08:51 164/67 08/20/20 04:00 98.0 75 18 145/82 (103) 97 08/20/20 00:00 98.6 65 17 155/65 (95) 98 08/19/20 21:00 Nasal Cannula 2.0 08/19/20 20:00 98.4 72 18 147/84 (105) 99 08/19/20 16:00 97.8 64 18 154/70 (98) 98 08/19/20 12:00 98.1 62 18 160/58 (92) 98 08/19/20 09:00 Nasal Cannula 2.0 Height (Feet): 5 Height (Inches): 1.00 Weight (Pounds): 140 Gen: NAD HEENT: NCAT Pulm: BL chest rise Abd: Non-distended Ext: No c/c/e Skin: No visible rashes Neuro: Awake Laboratory Tests Test 08/20/20 05:22 White Blood Count 9.1 K/UL (4.8-10.8) Red Blood Count 4.47 M/UL (4.20-5.40) Hemoglobin 13.3 G/DL (12.0-16.0) Hematocrit 38.7 % (37.0-47.0) Mean Corpuscular Volume 87 FL (80-99) Mean Corpuscular Hemoglobin 29.7 PG (27.0-31.0) Mean Corpuscular Hemoglobin Concent 34.3 G/DL (32.0-36.0) Red Cell Distribution Width 14.3 % (11.6-14.8) Platelet Count 378 K/UL (150-450) Mean Platelet Volume 6.0 FL (6.5-10.1) L Neutrophils (%) (Auto) 74.8 % (45.0-75.0) Lymphocytes (%) (Auto) 15.8 % (20.0-45.0) L Monocytes (%) (Auto) 8.6 % (1.0-10.0) Eosinophils (%) (Auto) 0.1 % (0.0-3.0) Basophils (%) (Auto) 0.6 % (0.0-2.0) Sodium Level 136 MMOL/L (136-145) Potassium Level 4.5 MMOL/L (3.5-5.1) Chloride Level 103 MMOL/L (98-107) Carbon Dioxide Level 26 MMOL/L (21-32) Anion Gap 7 mmol/L (5-15) Blood Urea Nitrogen 25 mg/dL (7-18) H Creatinine 0.8 MG/DL (0.55-1.30) Estimat Glomerular Filtration Rate > 60 mL/min (>60) Glucose Level 88 MG/DL (74-106) Calcium Level 9.0 MG/DL (8.5-10.1) Current Medications Medications (Trade) Dose Ordered Sig/James Route PRN Reason Start Time Stop Time Status Last Admin Dose Admin Acetaminophen (Tylenol) 650 mg Q4H PRN ORAL Temp >100.5 08/16/20 22:00 09/15/20 21:59 Albuterol/ Ipratropium (Combivent Respimat) 1 puff Q4H PRN INH Shortness of Breath 08/16/20 22:00 09/15/20 21:59 Alprazolam (Xanax) 0.5 mg Q6H PRN ORAL For Anxiety 08/18/20 13:32 08/25/20 13:31 08/19/20 21:28 Amlodipine Besylate (Norvasc) 5 mg DAILY ORAL 08/20/20 09:00 09/19/20 08:59 08/20/20 08:51 Aspirin (ASA) 81 mg DAILY ORAL 08/17/20 09:00 10/01/20 08:59 08/20/20 08:51 Azithromycin (Zithromax) 250 mg DAILY ORAL 08/18/20 10:00 08/22/20 09:01 08/20/20 08:51 Ceftriaxone Sodium 1 gm/ Dextrose 55 ml @ 110 mls/hr Q24H IVPB 08/17/20 15:00 08/24/20 21:59 08/19/20 15:09 Dexamethasone (Decadron) 6 mg DAILY ORAL 08/19/20 09:00 08/27/20 09:01 08/20/20 08:51 Dextrose (Dextrose 50%) 25 ml Q30M PRN IV Hypoglycemia 08/16/20 22:00 11/14/20 21:59 Dextrose (Dextrose 50%) 50 ml Q30M PRN IV Hypoglycemia 08/16/20 22:00 11/14/20 21:59 Heparin Sodium (Porcine) (Heparin 5000 units/ml) 5,000 units EVERY 12 HOURS SUBQ 08/17/20 09:00 10/01/20 08:59 08/20/20 08:52 Losartan Potassium (Cozaar) 50 mg DAILY ORAL 08/18/20 09:00 09/16/20 08:59 08/20/20 08:51 Mirtazapine (Remeron) 15 mg BEDTIME ORAL 08/17/20 21:00 11/15/20 20:59 08/19/20 21:15 Ondansetron HCl (Zofran) 4 mg Q6H PRN IVP Nausea & Vomiting 08/16/20 22:00 09/15/20 21:59 Polyethylene Glycol (Miralax) 17 gm DAILYPRN PRN ORAL Constipation 08/16/20 22:00 09/15/20 21:59 Promethazine HCl/ Codeine (Phenergan with Codeine) 5 ml Q6H PRN ORAL cough 08/16/20 22:00 09/15/20 21:59 Zolpidem Tartrate (Ambien) 5 mg HSPRN PRN ORAL Insomnia 08/18/20 21:00 08/25/20 20:59 08/19/20 21:28 Olive Eric M.D. Aug 20, 2020 08:59
--- NOTE | 2020-08-20 10:13 | Pulmonology Progress Note ---
Subjective ROS Limited/Unobtainable: No Constitutional: Reports: no symptoms HEENT: Repors: no symptoms Respiratory: Reports: no symptoms Allergies: Coded Allergies: No Known Allergies (Unverified , 05/22/20) Objective Last 24 Hour Vital Signs Date Time Temp Pulse Resp B/P (MAP) Pulse Ox O2 Delivery O2 Flow Rate FiO2 08/20/20 08:51 81 164/67 08/20/20 08:51 164/67 08/20/20 08:00 98.2 81 21 142/74 (96) 99 08/20/20 04:00 98.0 75 18 145/82 (103) 97 08/20/20 00:00 98.6 65 17 155/65 (95) 98 08/19/20 21:00 Nasal Cannula 2.0 08/19/20 20:00 98.4 72 18 147/84 (105) 99 08/19/20 16:00 97.8 64 18 154/70 (98) 98 08/19/20 12:00 98.1 62 18 160/58 (92) 98 Intake and Output 08/19/20 08/20/20 19:00 07:00 Intake Total 355 ml 240 ml Output Total 1800 ml 900 ml Balance -1445 ml -660 ml Intake Oral 300 ml 240 ml IV Total 55 ml Output Urine Total 1800 ml 900 ml # Voids 1 General Appearance: WD/WN HEENT: normocephalic, atraumatic Respiratory: chest wall non-tender, lungs clear Breasts: no masses Cardiovascular: normal peripheral pulses Abdomen: normal bowel sounds, soft, non tender Genitourinary: normal external genitalia Skin: no rash 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 grossly normal Laboratory Tests 08/20/20 05:22: White Blood Count 9.1, Red Blood Count 4.47, Hemoglobin 13.3, Hematocrit 38.7, Mean Corpuscular Volume 87, Mean Corpuscular Hemoglobin 29.7, Mean Corpuscular Hemoglobin Concent 34.3, Red Cell Distribution Width 14.3, Platelet Count 378, Mean Platelet Volume 6.0L, Neutrophils (%) (Auto) 74.8, Lymphocytes (%) (Auto) 15.8L, Monocytes (%) (Auto) 8.6, Eosinophils (%) (Auto) 0.1, Basophils (%) (Auto) 0.6, Sodium Level 136, Potassium Level 4.5, Chloride Level 103, Carbon Dioxide Level 26, Anion Gap 7, Blood Urea Nitrogen 25H, Creatinine 0.8, Estimat Glomerular Filtration Rate > 60, Glucose Level 88, Calcium Level 9.0 Current Medications Medications (Trade) Dose Ordered Sig/James Route PRN Reason Start Time Stop Time Status Last Admin Dose Admin Acetaminophen (Tylenol) 650 mg Q4H PRN ORAL Temp >100.5 08/16/20 22:00 09/15/20 21:59 Albuterol/ Ipratropium (Combivent Respimat) 1 puff Q4H PRN INH Shortness of Breath 08/16/20 22:00 09/15/20 21:59 Alprazolam (Xanax) 0.5 mg Q6H PRN ORAL For Anxiety 08/18/20 13:32 08/25/20 13:31 08/19/20 21:28 Amlodipine Besylate (Norvasc) 5 mg DAILY ORAL 08/20/20 09:00 09/19/20 08:59 08/20/20 08:51 Aspirin (ASA) 81 mg DAILY ORAL 08/17/20 09:00 10/01/20 08:59 08/20/20 08:51 Dexamethasone (Decadron) 6 mg DAILY ORAL 08/19/20 09:00 08/27/20 09:01 08/20/20 08:51 Dextrose (Dextrose 50%) 25 ml Q30M PRN IV Hypoglycemia 08/16/20 22:00 11/14/20 21:59 Dextrose (Dextrose 50%) 50 ml Q30M PRN IV Hypoglycemia 08/16/20 22:00 11/14/20 21:59 Heparin Sodium (Porcine) (Heparin 5000 units/ml) 5,000 units EVERY 12 HOURS SUBQ 08/17/20 09:00 10/01/20 08:59 08/20/20 08:52 Losartan Potassium (Cozaar) 50 mg DAILY ORAL 08/18/20 09:00 09/16/20 08:59 08/20/20 08:51 Mirtazapine (Remeron) 15 mg BEDTIME ORAL 08/17/20 21:00 11/15/20 20:59 08/19/20 21:15 Ondansetron HCl (Zofran) 4 mg Q6H PRN IVP Nausea & Vomiting 08/16/20 22:00 09/15/20 21:59 Polyethylene Glycol (Miralax) 17 gm DAILYPRN PRN ORAL Constipation 08/16/20 22:00 09/15/20 21:59 Promethazine HCl/ Codeine (Phenergan with Codeine) 5 ml Q6H PRN ORAL cough 08/16/20 22:00 09/15/20 21:59 Zolpidem Tartrate (Ambien) 5 mg HSPRN PRN ORAL Insomnia 08/18/20 21:00 08/25/20 20:59 08/19/20 21:28 Assessment/Plan Problems: (1) Bilateral pneumonia (2) COVID-19 (3) Generalized weakness (4) History of depression (5) History of hypertension Assessment/Plan all reviewed CRP is negative doing better, afebrile Respiratory isolation Antivirals by ID Decardon antitussive titrate fio2 to sat of 92% f/u inflammatory markers dvt prophylaxis Pamela Irving MD Aug 20, 2020 10:13
[2020-08-20 12:00] VITALS: BP 151/62
[2020-08-20 16:09] VITALS: BP 121/71
--- NOTE | 2020-08-20 16:55 | Internal Med Progress Note ---
Subjective Date of Service: Aug 20, 2020 Physician Name JessicaMonty Attending Physician Lorenzo Basilio MD Current Medications Medications (Trade) Dose Ordered Sig/James Route PRN Reason Start Time Stop Time Status Last Admin Dose Admin Acetaminophen (Tylenol) 650 mg Q4H PRN ORAL Temp >100.5 08/16/20 22:00 09/15/20 21:59 Albuterol/ Ipratropium (Combivent Respimat) 1 puff Q4H PRN INH Shortness of Breath 08/16/20 22:00 09/15/20 21:59 Alprazolam (Xanax) 0.5 mg Q6H PRN ORAL For Anxiety 08/18/20 13:32 08/25/20 13:31 08/19/20 21:28 Amlodipine Besylate (Norvasc) 5 mg DAILY ORAL 08/20/20 09:00 09/19/20 08:59 08/20/20 08:51 Aspirin (ASA) 81 mg DAILY ORAL 08/17/20 09:00 10/01/20 08:59 08/20/20 08:51 Dexamethasone (Decadron) 6 mg DAILY ORAL 08/19/20 09:00 08/27/20 09:01 08/20/20 08:51 Dextrose (Dextrose 50%) 25 ml Q30M PRN IV Hypoglycemia 08/16/20 22:00 11/14/20 21:59 Dextrose (Dextrose 50%) 50 ml Q30M PRN IV Hypoglycemia 08/16/20 22:00 11/14/20 21:59 Heparin Sodium (Porcine) (Heparin 5000 units/ml) 5,000 units EVERY 12 HOURS SUBQ 08/17/20 09:00 10/01/20 08:59 08/20/20 08:52 Losartan Potassium (Cozaar) 50 mg DAILY ORAL 08/18/20 09:00 09/16/20 08:59 08/20/20 08:51 Mirtazapine (Remeron) 15 mg BEDTIME ORAL 08/17/20 21:00 11/15/20 20:59 08/19/20 21:15 Ondansetron HCl (Zofran) 4 mg Q6H PRN IVP Nausea & Vomiting 08/16/20 22:00 09/15/20 21:59 Polyethylene Glycol (Miralax) 17 gm DAILYPRN PRN ORAL Constipation 08/16/20 22:00 09/15/20 21:59 Promethazine HCl/ Codeine (Phenergan with Codeine) 5 ml Q6H PRN ORAL cough 08/16/20 22:00 09/15/20 21:59 Zolpidem Tartrate (Ambien) 5 mg HSPRN PRN ORAL Insomnia 08/18/20 21:00 08/25/20 20:59 08/19/20 21:28 Allergies: Coded Allergies: No Known Allergies (Unverified , 05/22/20) ROS Limited/Unobtainable: Yes Subjective 80 YO F admitted with shortness of breath, nausea, vomiting and diarrhea. Now COVID 19 pneumonia. Cover for Int Med-Dr Basilio Objective Last Vital Signs Date Time Temp Pulse Resp B/P (MAP) Pulse Ox O2 Delivery O2 Flow Rate FiO2 08/20/20 16:09 98.0 90 19 121/71 (88) 95 08/20/20 09:00 Nasal Cannula 2.0 Laboratory Tests Test 08/20/20 05:22 White Blood Count 9.1 K/UL (4.8-10.8) Red Blood Count 4.47 M/UL (4.20-5.40) Hemoglobin 13.3 G/DL (12.0-16.0) Hematocrit 38.7 % (37.0-47.0) Mean Corpuscular Volume 87 FL (80-99) Mean Corpuscular Hemoglobin 29.7 PG (27.0-31.0) Mean Corpuscular Hemoglobin Concent 34.3 G/DL (32.0-36.0) Red Cell Distribution Width 14.3 % (11.6-14.8) Platelet Count 378 K/UL (150-450) Mean Platelet Volume 6.0 FL (6.5-10.1) L Neutrophils (%) (Auto) 74.8 % (45.0-75.0) Lymphocytes (%) (Auto) 15.8 % (20.0-45.0) L Monocytes (%) (Auto) 8.6 % (1.0-10.0) Eosinophils (%) (Auto) 0.1 % (0.0-3.0) Basophils (%) (Auto) 0.6 % (0.0-2.0) Sodium Level 136 MMOL/L (136-145) Potassium Level 4.5 MMOL/L (3.5-5.1) Chloride Level 103 MMOL/L (98-107) Carbon Dioxide Level 26 MMOL/L (21-32) Anion Gap 7 mmol/L (5-15) Blood Urea Nitrogen 25 mg/dL (7-18) H Creatinine 0.8 MG/DL (0.55-1.30) Estimat Glomerular Filtration Rate > 60 mL/min (>60) Glucose Level 88 MG/DL (74-106) Calcium Level 9.0 MG/DL (8.5-10.1) Intake and Output 08/19/20 08/20/20 19:00 07:00 Intake Total 355 ml 240 ml Output Total 1800 ml 900 ml Balance -1445 ml -660 ml Intake Oral 300 ml 240 ml IV Total 55 ml Output Urine Total 1800 ml 900 ml # Voids 1 Objective PHYSICAL EXAMINATION: GENERAL: The patient awake, responsive no acute distress. HEAD AND NECK: Pupils are equal and reactive. Extraocular movements are intact. Neck was supple. No JVD. LUNGS: Good air entry. No wheezing or rales. HEART: S1, S2. Regular rhythm. No gallops. ABDOMEN: Soft, nondistended and nontender. Positive bowel sounds. EXTREMITIES: No cyanosis, clubbing or edema. NEUROLOGIC: Cranial nerves II through XII was grossly intact. Motor is 5/5 in all extremities. Gait is intact. RECTAL: Refused and deferred. : Refused and deferred. PSYCHIATRIC: Mood and affect are intact. Assessment/Plan Assessment/Plan Assessment/Plan Assessment/Plan COVID-19 Pneumonia. hyponatremia Hypertension Schizophrenia. Plan: Antibiotics: Rocephin and azithromycin Follow-up with laboratory and cultures. Follow-up with pulmonary critical care and infection disease consultations. Decadron IV DVT prophylaxis. Heparin subcu CODE STATUS: Full code. Titrate FIO2 to sat of 92% Monty Lopez MD Aug 20, 2020 16:55
[2020-08-20 20:00] VITALS: BP 141/81
[2020-08-20] MEDS: ALPRAZolam 0.5mg tab ORAL PRN (22:13)
[2020-08-20] MEDS: Zolpidem 5mg tab ORAL PRN (22:13)
[2020-08-21] VITALS: BP 111/71
[2020-08-21 04:00] VITALS: BP 122/72
[2020-08-21 07:44] LABS: BASOPHILS % (AUTO) 0.2 % (0.0-2.0); HEMOGLOBIN 12.6 G/DL (12.0-16.0); LYMPHOCYTES % (AUTO) 15.6 % (20.0-45.0); MEAN CORPUSCULAR VOLUME 89 FL (80-99); MONOCYTES % (AUTO) 10.1 % (1.0-10.0); NEUTROPHILS % (AUTO) 74.2 % (45.0-75.0); PLATELET COUNT 390 K/UL (150-450); RED BLOOD COUNT 4.39 M/UL (4.20-5.40); RED CELL DISTRIBUTION WIDTH 13.6 % (11.6-14.8); WHITE BLOOD COUNT 8.2 K/UL (4.8-10.8)
[2020-08-21 08:00] VITALS: BP 132/59
[2020-08-21 08:13] LABS: ANION GAP 8 mmol/L (5-15); BLOOD UREA NITROGEN 28 mg/dL (7-18); CALCIUM 8.6 MG/DL (8.5-10.1); CARBON DIOXIDE 25 MMOL/L (21-32); CHLORIDE 103 MMOL/L (98-107); CREATININE 0.8 MG/DL (0.55-1.30); POTASSIUM 4.2 MMOL/L (3.5-5.1); SODIUM 136 MMOL/L (136-145)
[2020-08-21] MEDS: Heparin 5000 units/ml inj SUBQ SCH (08:39)
[2020-08-21] MEDS: Aspirin Baby 81mg ORAL SCH (08:39)
[2020-08-21] MEDS: Losartan 25mg tab ORAL SCH (08:47)
--- NOTE | 2020-08-21 09:11 | Infectious Diseases Prog Note ---
Assessment/Plan 80yo F with: COVID pna, relatively mild Afebrile Normal WBC Lymphopenia 08/13 COVID + prior to admission 08/16 BCx NTD Resp cx p UA neg CTA chest: 1. No central or large pulmonary embolus identified. Evaluation of the pulmonary arterial branches is limited by motion artifact. 2. No aortic aneurysm or dissection. 3. Patchy ground-glass opacities and densities bilaterally, compatible with Covid 19 infection. Cr 0.8 Schizophrenia Plan: Cont dexamethasone #5/10 - will stop if remains on RA 08/20 SP empiric CTX/azithro #4/5 given doing well on RA Not candidate for RDV given doing well on RA Monitor CBC/CMP Monitor resp status Monitor temp curve, hemodynamics D/w RN Thank you for this consult. [facility] will continue to follow. Subjective Allergies: Coded Allergies: No Known Allergies (Unverified , 05/22/20) AF NAD Satting 100% on 2L NC WBC 8.2 Objective Last 24 Hour Vital Signs Date Time Temp Pulse Resp B/P (MAP) Pulse Ox O2 Delivery O2 Flow Rate FiO2 08/21/20 08:47 66 132/59 08/21/20 08:47 132/59 08/21/20 08:00 96.4 66 18 132/59 (83) 100 08/21/20 04:00 97.8 64 18 122/72 (89) 99 08/21/20 00:00 97.4 71 17 111/71 (84) 100 08/20/20 21:00 Nasal Cannula 2.0 08/20/20 20:00 97.4 82 18 141/81 (101) 99 08/20/20 16:09 98.0 90 19 121/71 (88) 95 08/20/20 12:00 97.1 79 20 151/62 (91) 97 Height (Feet): 5 Height (Inches): 1.00 Weight (Pounds): 140 Gen: NAD HEENT: NCAT Pulm: BL chest rise Abd: Non-distended Ext: No c/c/e Skin: No visible rashes Neuro: Awake Laboratory Tests Test 08/21/20 05:30 White Blood Count 8.2 K/UL (4.8-10.8) Red Blood Count 4.39 M/UL (4.20-5.40) Hemoglobin 12.6 G/DL (12.0-16.0) Hematocrit 39.0 % (37.0-47.0) Mean Corpuscular Volume 89 FL (80-99) Mean Corpuscular Hemoglobin 28.8 PG (27.0-31.0) Mean Corpuscular Hemoglobin Concent 32.4 G/DL (32.0-36.0) Red Cell Distribution Width 13.6 % (11.6-14.8) Platelet Count 390 K/UL (150-450) Mean Platelet Volume 6.0 FL (6.5-10.1) L Neutrophils (%) (Auto) 74.2 % (45.0-75.0) Lymphocytes (%) (Auto) 15.6 % (20.0-45.0) L Monocytes (%) (Auto) 10.1 % (1.0-10.0) H Eosinophils (%) (Auto) 0.0 % (0.0-3.0) Basophils (%) (Auto) 0.2 % (0.0-2.0) Sodium Level 136 MMOL/L (136-145) Potassium Level 4.2 MMOL/L (3.5-5.1) Chloride Level 103 MMOL/L (98-107) Carbon Dioxide Level 25 MMOL/L (21-32) Anion Gap 8 mmol/L (5-15) Blood Urea Nitrogen 28 mg/dL (7-18) H Creatinine 0.8 MG/DL (0.55-1.30) Estimat Glomerular Filtration Rate > 60 mL/min (>60) Glucose Level 88 MG/DL (74-106) Calcium Level 8.6 MG/DL (8.5-10.1) Current Medications Medications (Trade) Dose Ordered Sig/James Route PRN Reason Start Time Stop Time Status Last Admin Dose Admin Acetaminophen (Tylenol) 650 mg Q4H PRN ORAL Temp >100.5 08/16/20 22:00 09/15/20 21:59 Albuterol/ Ipratropium (Combivent Respimat) 1 puff Q4H PRN INH Shortness of Breath 08/16/20 22:00 09/15/20 21:59 Alprazolam (Xanax) 0.5 mg Q6H PRN ORAL For Anxiety 08/18/20 13:32 08/25/20 13:31 08/20/20 22:13 Amlodipine Besylate (Norvasc) 5 mg DAILY ORAL 08/20/20 09:00 09/19/20 08:59 08/21/20 08:47 Aspirin (ASA) 81 mg DAILY ORAL 08/17/20 09:00 10/01/20 08:59 08/21/20 08:39 Dexamethasone (Decadron) 6 mg DAILY ORAL 08/19/20 09:00 08/27/20 09:01 08/21/20 08:39 Dextrose (Dextrose 50%) 25 ml Q30M PRN IV Hypoglycemia 08/16/20 22:00 11/14/20 21:59 Dextrose (Dextrose 50%) 50 ml Q30M PRN IV Hypoglycemia 08/16/20 22:00 11/14/20 21:59 Heparin Sodium (Porcine) (Heparin 5000 units/ml) 5,000 units EVERY 12 HOURS SUBQ 08/17/20 09:00 10/01/20 08:59 08/21/20 08:39 Losartan Potassium (Cozaar) 50 mg DAILY ORAL 08/18/20 09:00 09/16/20 08:59 08/21/20 08:47 Mirtazapine (Remeron) 15 mg BEDTIME ORAL 08/17/20 21:00 11/15/20 20:59 08/20/20 20:16 Ondansetron HCl (Zofran) 4 mg Q6H PRN IVP Nausea & Vomiting 08/16/20 22:00 09/15/20 21:59 Polyethylene Glycol (Miralax) 17 gm DAILYPRN PRN ORAL Constipation 08/16/20 22:00 09/15/20 21:59 Promethazine HCl/ Codeine (Phenergan with Codeine) 5 ml Q6H PRN ORAL cough 08/16/20 22:00 09/15/20 21:59 Zolpidem Tartrate (Ambien) 5 mg HSPRN PRN ORAL Insomnia 08/18/20 21:00 08/25/20 20:59 08/20/20 22:13 Olive Eric M.D. Aug 21, 2020 09:11
[2020-08-21 12:04] VITALS: BP 159/68
--- NOTE | 2020-08-21 12:05 | Pulmonology Progress Note ---
Subjective ROS Limited/Unobtainable: Yes Constitutional: Reports: no symptoms HEENT: Repors: no symptoms Respiratory: Reports: no symptoms Allergies: Coded Allergies: No Known Allergies (Unverified , 05/22/20) Objective Last 24 Hour Vital Signs Date Time Temp Pulse Resp B/P (MAP) Pulse Ox O2 Delivery O2 Flow Rate FiO2 08/21/20 08:47 66 132/59 08/21/20 08:47 132/59 08/21/20 08:00 96.4 66 18 132/59 (83) 100 08/21/20 04:00 97.8 64 18 122/72 (89) 99 08/21/20 00:00 97.4 71 17 111/71 (84) 100 08/20/20 21:00 Nasal Cannula 2.0 08/20/20 20:00 97.4 82 18 141/81 (101) 99 08/20/20 16:09 98.0 90 19 121/71 (88) 95 Intake and Output 08/20/20 08/21/20 19:00 07:00 Intake Total 720 ml 350 ml Balance 720 ml 350 ml Intake Oral 720 ml 350 ml # Voids 1 # Bowel Movements 2 General Appearance: WD/WN HEENT: normocephalic, atraumatic Respiratory: chest wall non-tender, lungs clear Breasts: no masses Cardiovascular: normal peripheral pulses Abdomen: normal bowel sounds, soft, non tender Genitourinary: normal external genitalia Skin: no rash Neurologic: dehairer II-XII grossly normal Laboratory Tests 08/21/20 05:30: White Blood Count 8.2, Red Blood Count 4.39, Hemoglobin 12.6, Hematocrit 39.0, Mean Corpuscular Volume 89, Mean Corpuscular Hemoglobin 28.8, Mean Corpuscular Hemoglobin Concent 32.4, Red Cell Distribution Width 13.6, Platelet Count 390, Mean Platelet Volume 6.0L, Neutrophils (%) (Auto) 74.2, Lymphocytes (%) (Auto) 15.6L, Monocytes (%) (Auto) 10.1H, Eosinophils (%) (Auto) 0.0, Basophils (%) (Auto) 0.2, Sodium Level 136, Potassium Level 4.2, Chloride Level 103, Carbon Dioxide Level 25, Anion Gap 8, Blood Urea Nitrogen 28H, Creatinine 0.8, Estimat Glomerular Filtration Rate > 60, Glucose Level 88, Calcium Level 8.6 Current Medications Medications (Trade) Dose Ordered Sig/James Route PRN Reason Start Time Stop Time Status Last Admin Dose Admin Acetaminophen (Tylenol) 650 mg Q4H PRN ORAL Temp >100.5 08/16/20 22:00 09/15/20 21:59 Albuterol/ Ipratropium (Combivent Respimat) 1 puff Q4H PRN INH Shortness of Breath 08/16/20 22:00 09/15/20 21:59 Alprazolam (Xanax) 0.5 mg Q6H PRN ORAL For Anxiety 08/18/20 13:32 08/25/20 13:31 08/20/20 22:13 Amlodipine Besylate (Norvasc) 5 mg DAILY ORAL 08/20/20 09:00 09/19/20 08:59 08/21/20 08:47 Aspirin (ASA) 81 mg DAILY ORAL 08/17/20 09:00 10/01/20 08:59 08/21/20 08:39 Dexamethasone (Decadron) 6 mg DAILY ORAL 08/19/20 09:00 08/27/20 09:01 08/21/20 08:39 Dextrose (Dextrose 50%) 25 ml Q30M PRN IV Hypoglycemia 08/16/20 22:00 11/14/20 21:59 Dextrose (Dextrose 50%) 50 ml Q30M PRN IV Hypoglycemia 08/16/20 22:00 11/14/20 21:59 Heparin Sodium (Porcine) (Heparin 5000 units/ml) 5,000 units EVERY 12 HOURS SUBQ 08/17/20 09:00 10/01/20 08:59 08/21/20 08:39 Losartan Potassium (Cozaar) 50 mg DAILY ORAL 08/18/20 09:00 09/16/20 08:59 08/21/20 08:47 Mirtazapine (Remeron) 15 mg BEDTIME ORAL 08/17/20 21:00 11/15/20 20:59 08/20/20 20:16 Ondansetron HCl (Zofran) 4 mg Q6H PRN IVP Nausea & Vomiting 08/16/20 22:00 09/15/20 21:59 Polyethylene Glycol (Miralax) 17 gm DAILYPRN PRN ORAL Constipation 08/16/20 22:00 09/15/20 21:59 Promethazine HCl/ Codeine (Phenergan with Codeine) 5 ml Q6H PRN ORAL cough 08/16/20 22:00 09/15/20 21:59 Zolpidem Tartrate (Ambien) 5 mg HSPRN PRN ORAL Insomnia 08/18/20 21:00 08/25/20 20:59 08/20/20 22:13 Assessment/Plan Problems: (1) Bilateral pneumonia (2) COVID-19 (3) Generalized weakness (4) History of depression (5) History of hypertension Assessment/Plan all reviewed on room air CRP is negative doing better, afebrile Respiratory isolation Antivirals by ID Decardon antitussive titrate fio2 to sat of 92% f/u inflammatory markers dvt prophylaxis Pamela Irving MD Aug 21, 2020 12:05
[2020-08-21] MEDS ORDERED: D5 1/2NS 1000ml IV ONE (13:44)
--- NOTE | 2020-08-23 14:35 | Discharge Summary ---
Discharge Summary Discharge Summary _ DATE OF ADMISSION: 08/16/2020 DATE OF DISCHARGE: 08/21/2020 DISCHARGED BY: Dr. Basilio REASON FOR ADMISSION: 80 years old female with past medical history of hypertension, schizophrenia., Urinary tract infection recently diagnosed with Covid on 1222 presented with family due to fatigue shortness of breath and lethargy. Patient was predominantly complain of the GI symptoms including vomiting diarrhea and decreased appetite. She denied chest pain, no headache. No cough Shortly after initial evaluation patient was admitted with Covid pneumonia and mild dehydration CONSULTANTS: pulmonary Dr. Irving ID specialist Dr Eric [facility]SE: Patient made to medical surgical floor to isolation room. Supplemental oxygen provided and titrated to keep pulse oximetry above 92%. Patient provided with empiric antibiotic and steroids. Patient was follow-up with inflammatory markers. DVT prophylaxis provided. Patient was on the IV hydration. Home medication continued. Blood pressure was managed with calcium channel sia and losartan. Patient remained patient is was intermittently on oxygen via nasal cannula. Blood culture came back negative. Patient was follow-up with inflammatory markers CRP less than 0.4. CTA of the chest and thorax r evealed no evidence of large pulmonary emboli. No aortic aneurysm or dissection. Patchy groundglass opacity in density bilaterally compatible with a COVID-19 infection. Renal parameters electrolytes are closely monitor electrolytes corrected as needed nephrotoxic's were avoided. With her IV hydration sodium from 127 up to 136 creatinine remained stable. Phosphorus corrected as well from initial 2.2 down to phosphorus up to 3.6. Patient clinically stabilized and was ready for discharge home patient continue self-isolation for total of 10 days FINAL DIAGNOSES: Covid pneumonia Hyponatremia Hypertension Schizophrenia DISCHARGE MEDICATIONS: See Medication Reconciliation list. DISCHARGE INSTRUCTIONS: Patient was discharged home. Patient was advised on self-isolation for total of 10 days I have been assigned to dictate discharge summary for this account. I was not involved in the patient's management. Alicia Vega NP Aug 23, 2020 14:35
== END 2020-08-21 13:45 | disposition home or self-care (01) | DRG 177 ==
LOC: EMR 14:24 → 4E 15:37 → UNDOADMIN 15:37 → EDBEDREQ 08-17 14:32 → 4E 08-18 10:13
DX: U07.1 COVID-19 (principal); J12.89 Other viral pneumonia; E87.1 Hypo-osmolality and hyponatremia; I10 Essential (primary) hypertension; F20.9 Schizophrenia, unspecified; E83.39 Other disorders of phosphorus metabolism; E86.0 Dehydration
CPT/HCPCS: 36415; 71045; 71275; 80048; 80053; 80069; 81003; 82550; 82728; 83605; 83615; 83690; 83735; 83880; 84100; 84484; 85025; 85379; 85610; 85651; 85730; 86140; 87040; 93005; 96365; 96367; 96375; 99291; J2405; J7030